=== PATIENT | female | born 1960 | race Caucasian/White ===

== ENCOUNTER 2019-07-11 12:26 | Emergency (ER) | payer OTHER, SELFPAY ==
[2019-07-11 12:36] VITALS: BP 139/90; PULSE 63; RESP 20; TEMP 37.2; O2SAT 98
--- NOTE | 2019-07-11 12:43 | ED.GENADULT ---
HPI - General Adult General Chief complaint: Upper Respiratory Infection Stated complaint: cough/sore throat Time Seen by Provider: 07/11/19 12:44 Source: patient and RN notes reviewed Mode of arrival: ambulatory Limitations: no limitations History of Present Illness HPI narrative: This is a 59 years old female presented to the office for evaluation of cough for 3-day. Associated with wheezing at time with chest tightness when she coughs. Symptoms began with stuffy nose and scratchy throat. Denies shortness of breath, abdominal pain, vomiting, or fever. She was a heavy smoker, quit about 4 years ago. Her daughter is sick with head cold. She did receive influenza vaccine for this season. Related Data Home Medications Medication Instructions Recorded Confirmed atorvastatin 10 mg PO DAILY 07/11/19 07/11/19 valsartan 40 mg PO DAILY 07/11/19 07/11/19 Allergies Allergy/AdvReac Type Severity Reaction Status Date / Time codeine Allergy Intermediate N/V Verified 07/11/19 12:29 diclofenac Allergy Intermediate RED RASH Verified 07/11/19 12:29 Review of Systems Review of Systems: Narrative: CONSTITUTIONAL: Denies fever, chills, sweats. ENT: Denies rhinorrhea, otalgia. CARDIOVASCULAR: Denies chest pain RESPIRATORY:Reports dyspnea, wheezing, cough GASTROINTESTINAL: Denies abdominal pain, nausea, vomiting, diarrhea. GENITOURINARY: Denies urinary symptoms or discharge SKIN: Denies rash MUSCULOSKELETAL: Denies acute back pain NEUROLOGIC: Denies lightheaded PMFSH Past Medical History Medical History (Updated 07/11/19 @ 12:53 by MARY ELLEN Etienne) HLD (hyperlipidemia) HTN (hypertension) Social History Social History (Updated 07/11/19 @ 12:51 by MARY ELLEN Etienne) Smoking status: Former smoker Comments At time of signature, I agree with nursing past medical, surgical, social and family history. There is no relevant family history pertinent to the presenting complaint. Exam Narrative: Exam Narrative: GENERAL: This is a well-nourished, well-developed patient, in no apparent distress. EYES: Sclera clear/white. Vision is grossly intact. EARS: External ears normal, auditory canals clear and without drainage, TMs normal without perforation. Hearing grossly intact. NOSE: External nose normal with no obvious nasal discharge, nares without redness, no rhinorrhea. THROAT: Mucous membranes moist, posterior pharynx clear. NECK: Neck supple, non-tender without lymphadenopathy, masses or thyromegaly. CARDIOVASCULAR: Regular rate and rhythm without murmurs, gallops, or rubs. RESPIRATORY: Clear to auscultation with in lower lobes note diminish breathsound. Breath sounds equal bilaterally. No wheezes, rales, or rhonchi. GASTROINTESTINAL: Abdomen soft, non-tender, nondistended. Bowel sounds are active. No hepato-splenomegaly, or palpable masses. No guarding. SKIN: warm, intact with no suspicious lesions or rash, good texture and turgor. NEURO: awake, alert, and oriented to person, place and time. There were no obvious focal neurologic abnormalities. Steady gait Drummond Coma Scale Eye Opening: Spontaneous 4 Jenna Coma Scale Motor: Obeys Commands 6 Jenna Coma Scale Verbal: Oriented 5 Course Vital Signs Vital signs: Vital Signs Temperature 98.9 F 07/11/19 12:36 Pulse Rate 63 07/11/19 12:36 Respiratory Rate 07/11/19 12:36 Blood Pressure 139/90 07/11/19 12:36 Pulse Oximetry 98 07/11/19 12:36 Temperature 98.9 F 07/11/19 12:36 Pulse Rate 63 07/11/19 12:36 Respiratory Rate 20 07/11/19 12:36 Blood Pressure 139/90 07/11/19 12:36 Pulse Oximetry 98 07/11/19 12:36 Medical Decision Making MDM Narrative Medical decision making narrative: elevated BP noted; recommend follow up with PCP in 2week; Discharge instructions reviewed with patient, as well as provided in writing per nursing staff. The instructions also include specific and strict return/GO TO THE ER as well as f/u information
== END 2019-07-11 12:54 | disposition home or self-care (01) ==
PROVIDERS: Emergency Provider Nurse Practitioner; PCP Family Medicine Sports Medicine
DX: J40 Bronchitis, not specified as acute or chronic (principal); E78.5 Hyperlipidemia, unspecified; I10 Essential (primary) hypertension; Z87.891 Personal history of nicotine dependence
CPT/HCPCS: 99213; G0463

== ENCOUNTER 2019-12-01 18:12 | Emergency (ER) | payer OTHER, SELFPAY ==
[2019-12-01 18:21] VITALS: BP 172/89; PULSE 72; RESP 20; TEMP 36.6; O2SAT 98
--- NOTE | 2019-12-01 18:45 | ED.GENADULT ---
HPI - General Adult General Chief complaint: Dizziness Stated complaint: left ear and dizzy Time Seen by Provider: 12/01/19 18:34 Source: patient and RN notes reviewed Limitations: no limitations History of Present Illness HPI narrative: Patient presents today with sudden onset dizziness that is significantly worsened when she tries to lay down or with movement of the head side to side. Denies nausea, vomiting, chest pain, shortness of breath, numbness or tingling in the extremities. She does report some left ear muffling for the past 2 to 3 days. States she had allergy testing today. Called her sec reporting consultant when symptoms began, and was told that the symptoms are not related to her injections today. She has tried no eayu-fom-kfhiywd medication for symptoms prior to arrival. She did have 2 beers this evening. MD complaint: Dizziness Related Data Home Medications Medication Instructions Recorded Confirmed atorvastatin 10 mg PO DAILY 07/11/19 12/01/19 valsartan 40 mg PO DAILY 07/11/19 12/01/19 budesonide-formoterol [Symbicort] 2 puff INHALATION Q12H 12/01/19 12/01/19 montelukast 10 mg PO HS 12/01/19 12/01/19 Allergies Allergy/AdvReac Type Severity Reaction Status Date / Time codeine Allergy Intermediate N/V Verified 12/01/19 18:35 diclofenac Allergy Intermediate RED RASH Verified 12/01/19 18:35 Review of Systems Review of Systems: Narrative: CONSTITUTIONAL: Denies body aches, fever, chills, or sweats. EYES: Denies visual changes, redness, or discharge. ENT: Denies rhinorrhea, congestion, sore throat, or otalgia.+ Left ear muffling CARDIOVASCULAR: Denies chest pain, palpitations, or edema. RESPIRATORY: Denies cough or dyspnea. GASTROINTESTINAL: Denies abdominal pain, nausea, vomiting, or diarrhea. GENITOURINARY: Denies dysuria or hematuria. SKIN: Denies rash, itching, or wounds. MUSCULOSKELETAL: Denies back pain, joint pain, or myalgia. NEUROLOGIC: Denies headache, numbness, tingling, or weakness.+ Dizziness PSYCH: Denies depression or anxiety. [facility] Past Medical History Medical History (Updated 12/01/19 @ 19:16 by Linda Peace, WINDOWS ADMINISTRATOR, ) HLD (hyperlipidemia) HTN (hypertension) Social History Social History (Updated 07/11/19 @ 12:51 by MARY ELLEN Etienne) Smoking status: Former smoker Comments At time of signature, I have reviewed and agree with nursing past medical, surgical, social and family history unless otherwise noted. Please see nursing chart for further information. There is no relevant family history pertinent to the presenting complaint Exam Narrative: Exam Narrative: GENERAL: Well-appearing, well-nourished, and in no acute distress. HEAD: Normocephalic, atraumatic. EYES: PERRL. +nystagmus. No redness or drainage. Conjunctivae normal. ENT: Mucous membranes pink and moist. Nares clear. No rhinorrhea. Small amount of fluid behind the left eardrum, otherwise normal. Right TM normal. Throat normal. Uvula midline. NECK: Normal AROM. Supple. No lymphadenopathy. CHEST: No respiratory distress. Clear to auscultation. HEART: Regular rate and rhythm. No murmur appreciated. Normal peripheral pulses. ABDOMEN: Soft, nontender, nondistended, normal active bowel sounds. MUSCULOSKELETAL: No bony tenderness. EXTREMITIES: Normal range of motion. No edema. SKIN: Warm, dry, no rash. Capillary refill normal. Normal skin turgor. NEURO: No focal deficits. Alert and oriented x3. Dizziness worsened with movement of head side to side and significanty worsened when she attempted to lay down on the exam table. PSYCH: Normal affect. No signs of depression or anxiety. Course Course Emergency Course: 1920- Patient states she is feeling slightly better, 30 mins after Meclizine. Given anticipatory guidance. Vital Signs Vital signs: Vital Signs Temperature 98 F 12/01/19 18:21 Pulse Rate 72 12/01/19 18:21 Respiratory Rate 20 12/01/19 18:21 Blood Pressure 172/89 H 12/01/19 18:21 Pulse Oximetry 9
[2019-12-01] MEDS: MECLIZINE HCL 25 MG TABLET 50 MG PO (18:50)
== END 2019-12-01 19:20 | disposition home or self-care (01) ==
PROVIDERS: Emergency Provider Nurse Practitioner; PCP Family Medicine Sports Medicine
DX: E78.5 Hyperlipidemia, unspecified (principal); I10 Essential (primary) hypertension; Z87.891 Personal history of nicotine dependence; R42 Dizziness and giddiness
CPT/HCPCS: 99213; A9270; G0463

== ENCOUNTER 2020-01-09 08:49 | Outpatient (CLI) | payer OTHER, SELFPAY | END 2020-01-09 08:50 | disposition home or self-care (01) | LOC: ANHAUDIO 08:50 | PROVIDERS: PCP Family Medicine Sports Medicine; Visit Provider Otolaryngology | DX: R42 Dizziness and giddiness (principal); H93.12 Tinnitus, left ear; H90.42 Sensorineural hearing loss, unilateral, left ear, with unrestricted hearing on the contralateral side | CPT/HCPCS: 92557; 92567 ==

== ENCOUNTER 2021-04-11 08:05 | Emergency (ER) | payer OTHER, SELFPAY ==
[2021-04-11 08:12] VITALS: BP 159/83; PULSE 64; RESP 20; TEMP 37.3; O2SAT 100
--- NOTE | 2021-04-11 08:13 | ED.URI ---
HPI - URI/Sore Throat General Chief Complaint: Upper Respiratory Infection Stated Complaint: Upper respiratory Time Seen by Provider: 04/11/21 08:13 Source: patient and RN notes reviewed Mode of arrival: ambulatory Limitations: no limitations History of Present Illness HPI Narrative: Glendy is a 60-year-old female patient [facility] with complaint of cough, congestion, and sore throat since 04/08/2021. Patient states she has a Covid test scheduled for 3 PM today. Patient has a history of allergies and is already taking Zyrtec, Flonase, Breo, and albuterol inhaler. Patient states she has been using Zicam, ozkj-zvd-bfzneia cough medicines, Motrin, and had a previous prescription for prednisone that she started yesterday. MD elicited complaint: cough Related Data Home Medications Medication Instructions Recorded Confirmed atorvastatin 10 mg PO DAILY 07/11/19 12/01/19 valsartan 40 mg PO DAILY 07/11/19 12/01/19 cetirizine [Zyrtec] 10 mg PO DAILY 12/01/19 12/01/19 montelukast 10 mg PO HS 12/01/19 12/01/19 cholecalciferol (vitamin D3) 25 25 mcg PO DAILY 12/21/19 mcg (1,000 unit) tablet fluticasone furoate 100 1 inhalation INHALATION DAILY 12/21/19 mcg-vilanterol 25 mcg/dose inhalation powder Allergies Allergy/AdvReac Type Severity Reaction Status Date / Time codeine Allergy Intermediate N/V Verified 04/11/21 08:24 diclofenac Allergy Intermediate RED RASH Verified 04/11/21 08:24 Review of Systems Review of Systems: CONSTITUTIONAL: Denies body aches, fever, chills, or sweats. EYES: Denies visual changes, redness, or discharge. ENT: Denies rhinorrhea,+ congestion,+ sore throat, denies otalgia. CARDIOVASCULAR: Denies chest pain, palpitations, or edema. RESPIRATORY:+ cough denies dyspnea. GASTROINTESTINAL: Denies abdominal pain, nausea, vomiting, or diarrhea. GENITOURINARY: Denies dysuria or hematuria. SKIN: Denies rash, itching, or wounds. MUSCULOSKELETAL: Denies back pain, joint pain, or myalgia. NEUROLOGIC: Denies headache, numbness, tingling, or weakness. PSYCH: Denies depression or anxiety. All systems reviewed & are unremarkable except as noted in HPI and below PMFSH Past Medical History Medical History HLD (hyperlipidemia) HTN (hypertension) Social History Social History Smoking status: Former smoker Second hand tobacco smoke exposure: No Alcohol intake: current Substance use: never Substance use type: does not use Comments At time of signature, I have reviewed and agree with nursing past medical, surgical, social and family history unless otherwise noted. Please see nursing chart for further information. There is no relevant family history pertinent to the presenting complaint Exam Narrative: GENERAL: Well-appearing, well-nourished, and in no acute distress. HEAD: Normocephalic, atraumatic. EYES: EOMI. No redness or drainage. Conjunctivae normal. ENT: Mucous membranes pink and moist. Nasal membranes erythemic with clear rhinorrhea. Bilateral tympanic membranes are dull with minimal fluid noted. No erythema noted. Posterior pharynx is mildly erythemic with minimal edema and no exudate noted. Uvula midline. NECK: Normal AROM. Supple. No lymphadenopathy. CHEST: No respiratory distress. Clear to auscultation. MUSCULOSKELETAL: No bony tenderness. EXTREMITIES: Normal range of motion. No edema. SKIN: Warm, dry, no rash. Capillary refill normal. Normal skin turgor. NEURO: No focal deficits. Alert and oriented x3. Gait steady. PSYCH: Normal affect. No signs of depression or anxiety. Course Course Emergency Course: Patient was evaluated and examined. I discussed with patient regarding upper respiratory illness most likely being viral in nature. Instructed her to follow-up with her primary care physician in 7 to 10 days for continued
== END 2021-04-11 08:30 | disposition home or self-care (01) ==
PROVIDERS: Emergency Provider Nurse Practitioner Family; PCP Family Medicine Sports Medicine
DX: J06.9 Acute upper respiratory infection, unspecified (principal); E78.5 Hyperlipidemia, unspecified; I10 Essential (primary) hypertension; Z87.891 Personal history of nicotine dependence
CPT/HCPCS: 99211; G0463

== ENCOUNTER 2021-09-27 07:36 | Emergency (ER) | payer OTHER, SELFPAY ==
[2021-09-27 07:43] VITALS: BP 150/82; PULSE 74; RESP 20; TEMP 36.8; O2SAT 100
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
[2021-09-27] MEDS: HYDROmorphone HCL INJ (*CRX) 1 MG/ML SYR IM (08:29)
[2021-09-27] MEDS: diazePAM (*CRX) 5 MG TABLET PO (08:29)
[2021-09-27] MEDS: ONDANSETRON HCL ODT 4 MG TABLET PO (08:29)
== END 2021-09-27 09:00 | disposition home or self-care (01) ==
PROVIDERS: Emergency Provider Emergency Medicine; PCP Family Medicine Sports Medicine
DX: S39.012A Strain of muscle, fascia and tendon of lower back, initial encounter (principal); E78.5 Hyperlipidemia, unspecified; I10 Essential (primary) hypertension; Z87.891 Personal history of nicotine dependence; X58.XXXA Exposure to other specified factors, initial encounter
CPT/HCPCS: 96372; 99283; A9270; J1170

== ENCOUNTER 2022-12-07 10:26 | Emergency (ER) | payer OTHER, SELFPAY ==
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
[2022-12-07 10:32] VITALS: BP 146/78; PULSE 61; RESP 16; TEMP 36.6; O2SAT 99
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
[2022-12-07] MEDS: HYDROcodone/acetaminophen (*CRX) 5-325 MG TABLET 1 TAB PO (12:29)
== END 2022-12-07 13:18 | disposition home or self-care (01) ==
PROVIDERS: Emergency Provider Physician Assistant; PCP Family Medicine Sports Medicine
DX: S52.592A Other fractures of lower end of left radius, initial encounter for closed fracture (principal); S52.615A Nondisplaced fracture of left ulna styloid process, initial encounter for closed fracture; E78.5 Hyperlipidemia, unspecified; I10 Essential (primary) hypertension; Z87.891 Personal history of nicotine dependence; W17.89XA Other fall from one level to another, initial encounter
CPT/HCPCS: 29125; 73110; 99284; A9270

== ENCOUNTER 2023-04-06 08:37 | Outpatient (CLI) | payer OTHER, SELFPAY ==
--- NOTE | 2023-04-06 11:00 | NEURO_ITS ---
Impression: # Complains of left upper extremity pain and numbness. # Mild evolving sensory Carpal Tunnel Syndrome. # Normal needle/EMG without any acute or chronic changes. Nerve Conduction Studies Anti Sensory Summary Table Stim Site NR Peak (ms) P-T Amp (?V) Site1 Site2 Delta-P (ms) Dist (cm) Shahzad (m/s) Left Median Anti Sensory (2-3nd Digit) Wrist 3.3 60.0 Wrist 2-3nd Digit 3.3 14.0 42 Wrist 3.3 64.3 Wrist 2-3nd Digit 3.3 14.0 42 Left Radial Anti Sensory (Base 1st Digit) Wrist 2.1 17.8 Wrist Base 1st Digit 2.1 0.0 Left Ulnar Anti Sensory (5th Digit) Wrist 2.1 55.7 Wrist 5th Digit 2.1 14.0 67 Motor Summary Table Stim Site NR Onset (ms) O-P Amp (mV) Site1 Site2 Delta-0 (ms) Dist (cm) Shahzad (m/s) Left Median Motor (Abd Poll Brev) Wrist 3.4 1.1 Elbow Wrist 4.5 28.0 62 Elbow 7.9 1.2 Left Ulnar Motor (Abd Dig Minimi) Wrist 2.1 4.2 A Elbow Wrist 4.6 27.0 59 A Elbow 6.7 3.5 F Wave Studies NR F-Lat (ms) L-R F-Lat (ms) Left Median (Mrkrs) (Abd Poll Brev) 26.80 Left Ulnar (Mrkrs) (Abd Dig Min) 25.19 EMG Side Muscle Nerve Root Ins Act Fibs Amp Dur Recrt Comment Left 1stDorInt Ulnar C8-T1 Nml Nml Nml Nml Nml Left Ext Indicis Radial (Post Int) C7-8 Nml Nml Nml Nml Nml Left Ext Digitorum Radial (Post Int) C7-8 Nml Nml Nml Nml Nml Left BrachioRad Radial C5-6 Nml Nml Nml Nml Nml Left PronatorTeres Median C6-7 Nml Nml Nml Nml Nml Left Abd Poll Brev Median C8-T1 Nml Nml Nml Nml Nml MTDD
== END 2023-04-06 08:38 | disposition home or self-care (01) ==
PROVIDERS: PCP Family Medicine Sports Medicine; Visit Provider Orthopaedic Surgery
DX: R20.0 Anesthesia of skin (principal); R20.2 Paresthesia of skin; G56.00 Carpal tunnel syndrome, unspecified upper limb
CPT/HCPCS: 95886; 95909

== ENCOUNTER 2023-04-10 08:03 | Emergency (ER) | payer OTHER, SELFPAY ==
--- NOTE | 2023-04-10 08:08 | ED.URI ---
HPI - URI/Sore Throat General Chief Complaint: Upper Respiratory Infection Stated Complaint: Cough Time Seen by Provider: 04/10/23 08:08 Source: patient Mode of arrival: ambulatory Limitations: no limitations History of Present Illness HPI Narrative: Glendy is a 62-year-old female patient presenting to the clinic today with complaints of cough and nasal congestion times 2-3 days. She reports she did taken at home COVID test and it was negative. Reports she is having surgery on her carpal tunnel on of next week and does not want to be sick. Denies any fever, chills, sore throat, body aches, or nausea/vomiting. MD elicited complaint: cough and nasal congestion Related Data Home Medications Medication Instructions Recorded Confirmed atorvastatin 10 mg tablet 10 mg PO DAILY 07/11/19 04/10/23 valsartan 40 mg tablet 40 mg PO DAILY 07/11/19 04/10/23 cetirizine 10 mg tablet (Zyrtec) 10 mg PO DAILY 12/01/19 04/10/23 montelukast 10 mg tablet 10 mg PO HS 12/01/19 04/10/23 fluticasone furoate 100 inhalation 04/10/23 mcg-vilanterol 25 mcg/dose inhalation powder (Breo Ellipta) Allergies Allergy/AdvReac Type Severity Reaction Status Date / Time codeine Allergy Intermediate N/V Verified 04/10/23 08:13 diclofenac Allergy Intermediate RED RASH Verified 04/10/23 08:13 Review of Systems Review of Systems: Pertinent positives per HPI. Patient denies any fever, chills, rash, headache, visual changes, dizziness, shortness of breath, chest pain, palpitations, nausea, vomiting, diarrhea, constipation, abdominal pain, or any urinary issues. [facility] Past Medical History Medical History Carpal tunnel syndrome of left wrist HLD (hyperlipidemia) HTN (hypertension) Social History Social History Smoking packs per day: 1 Smoking cigarettes per day: 20.0 Years smoked: 25 Smoking pack-years: 25.00 Smoking status: Former smoker Tobacco type: cigarettes Second hand tobacco smoke exposure: No Smoking end date: 05/11/15 Alcohol intake: current Drinks per week: 4 Substance use: never Substance use type: does not use Living arrangements: with family Spiritual care concerns: No Comments At the time of my signature, I reviewed and agree with the nursing past medical, surgical, social, and family history. There is no relevant family history pertinent to the patient complaint. Exam Narrative: General: Well-developed, well nourished, in no apparent distress Head: Normocephalic, atraumatic Eyes: Pupils equally round and reactive to light bilaterally, EOM intact, sclera and conjunctive clear, no discharge, lids normal Ears: TMs intact and clear, ear canals clear, no drainage, grossly hearing normal. Nose: Nares patent, clear nasal discharge, moderate inflammation, no sinus tenderness. Mouth: Oral pharynx without lesions or masses, good dentition, MMM. Neck: Supple, trachea midline, no enlargement of anterior or posterior cervical nodes, no thyroid masses or goiter palpable. Cardio: Regular rate and rhythm, s1 and s2 normal, no murmur appreciated. Resp: Clear to auscultation bilaterally, no rhonchi, rales, wheezing or rubs Course Course Emergency Course: Portions of this record may have been created with voice recognition software. Level of Care: Express Care Visit Vital Signs Vital signs: Vital signs reviewed MDM - URI/Sore Throat MDM Narrative Medical decision making narrative: At the time of visit patient is resting comfortably on the exam table. I suspect patient has URI. Prescription for prednisone was sent to pharmacy and supportive measures were discussed with the patient she voiced understanding of the discharge instructions and agrees to treatment plan. Return precautions were reviewed Differential Diagnosis Differential diagnosis: Likely upper respiratory in
[2023-04-10 08:09] VITALS: BP 145/87; PULSE 66; RESP 16; TEMP 36.9; O2SAT 98
== END 2023-04-10 08:20 | disposition home or self-care (01) ==
PROVIDERS: Emergency Provider Nurse Practitioner Family; PCP Family Medicine Sports Medicine
DX: J06.9 Acute upper respiratory infection, unspecified (principal); Z87.891 Personal history of nicotine dependence; I10 Essential (primary) hypertension; E78.5 Hyperlipidemia, unspecified
CPT/HCPCS: 99213; G0463

== ENCOUNTER 2023-04-14 15:21 | Outpatient (CLI) | payer OTHER, SELFPAY ==
--- NOTE | 2023-04-14 15:30 | ECG_ITS ---
Measurements Intervals [place] Rate: 58 P: 55 NM: 137 QRS: 17 QRSD: 94 T: 49 QT: 375 QTc: 370 Interpretive Statements SINUS BRADYCARDIA NONSPECIFIC T-WAVE ABNORMALITY NO PREVIOUS ECG AVAILABLE FOR COMPARISON Electronically Signed On 04-14-2023 20:18:53 [facility] by Deepa Sesay M.D.
== END 2023-04-14 15:22 | disposition home or self-care (01) ==
LOC: ANHSURGERY 15:25
PROVIDERS: PCP Family Medicine; Visit Provider Orthopaedic Surgery
DX: Z01.818 Encounter for other preprocedural examination (principal); I10 Essential (primary) hypertension; R00.1 Bradycardia, unspecified
CPT/HCPCS: 93005

== ENCOUNTER 2023-04-16 03:59 | Day surgery (SDC) | payer OTHER, SELFPAY ==
[2023-04-09 12:45] VITALS: BMI 31.0
--- NOTE | 2023-04-09 12:52 | PC.NURSE ---
Report to the Outpatient Waiting Room, entrance under the green pavilion located off [facility], at time 12:00 on date 04/16/23. Planned Procedure Time: 2:00. Time changes happen often and if your time is changed the preop area will call you the afternoon before. - You and your visitor will be asked to self-screen and do not enter if you have any COVID symptoms. - A mask is optional within the hospital at this time. Patients may have clear liquids (water, carbonated beverages, clear teas, apple juice) until 3 hours prior to surgery (11:00) with a maximum of 20 ounces. - No food from midnight until time of surgery Take the following medications with a SIP of water the morning of surgery: NONE DO NOT STOP ANY OF YOUR OTHER PRESCRIPTION MEDICATIONS PRIOR TO SURGERY ?EXCEPT THE FOLLOWING Medications to discontinue per physician: VITAMINS/SUPPLEMENTS Date to take last dose: 04/12/23 Please no make-up, nail english, hairspray, perfume, deodorant, or body powder the day of surgery. No jewelry (including any body piercings) or valuables the day of surgery, leave them at home. Please take a shower or bath the night before, or the morning of, surgery with an antibacterial soap. Wear comfortable, loose fitting clothing. - Jewelry must be removed prior to entering the operating room. Rings and piercings that are not removed may be cut off. - The hospital will not accept responsibility for valuables. - Please leave all valuables, including medications, at home the day of surgery. If you are going home after surgery, a licensed tour driver must drive you home. - NO public transportation without another adult if you receive anesthesia. - We recommend that an adult stay with you for 24 hours following discharge. - We also recommend that you do not drive, make important decision, drink alcoholic beverages, or take any drugs that were not prescribed by your health care provider for at least 24 hours after your discharge time. Follow any additional instructions given to you from your surgeon. If you or anyone in your household have experienced Covid symptoms in the past week, please notify your surgeon or the nurse liaison at the phone number below for possible testing. Telephone instructions given to PT - RHONDA MARION and asked if any additional questions and then verbalized understanding. Patient advised to call surgeon office or pre surgery nurse liaison [phone] if any additional questions.
--- NOTE | 2023-04-15 13:02 | PM.IMHP ---
H&P: HPI History of Present Illness Date/Time: 04/15/23 13:02 Chief Complaint: Left wrist pain, numbness and tingling Narrative: 4 months left distal radius fracture. Complicated by pain, numbness and tingling. Nerve conduction study shows carpal tunnel. Patient failed treatment with injection and bracing. Presents for operative treatment. Review of Systems Constitutional: Constitutional: Denies fever(s) Eyes: Eyes: Denies blurry vision ENT: Reports Normal hearing present Cardiovascular: Cardiovascular: Denies chest pain and Denies dyspnea Respiratory: Respiratory: Denies dyspnea and Denies wheezing Gastrointestinal: Gastrointestinal: Denies abdominal pain Genitourinary: Genitourinary: Denies urinary urgency Musculoskeletal: Musculoskeletal: Reports as per HPI and Denies numbness Integumentary/Breasts: Skin/Breast: Denies changing lesions and Denies sores Neurologic: Reports Normal hearing present, Denies behavioral changes, Denies confusion, Denies numbness and Denies convulsions Psychiatric: Psychiatric: Denies behavioral changes, Denies confusion and Denies hallucinations Endocrine: Endocrine: Denies heat intolerance Hematologic/Lymphatic: Hematologic/Lymphatic: Denies easy bleeding Allergic/Immunologic: Allergic/Immunologic: Denies wheezing [facility] Past Medical History Medical History Carpal tunnel syndrome of left wrist HLD (hyperlipidemia) HTN (hypertension) Social History Social History Smoking packs per day: 1 Smoking cigarettes per day: 20.0 Years smoked: 25 Smoking pack-years: 25.00 Smoking status: Former smoker Tobacco type: cigarettes Second hand tobacco smoke exposure: No Smoking end date: 05/11/15 Alcohol intake: current Drinks per week: 4 Substance use: never Substance use type: does not use Living arrangements: with family Spiritual care concerns: No Meds Home Medications and Allergies Home Medications Medication Instructions Recorded Confirmed Type atorvastatin 10 mg tablet 10 mg PO DAILY 07/11/19 04/10/23 History valsartan 40 mg tablet 40 mg PO DAILY 07/11/19 04/10/23 History cetirizine 10 mg tablet (Zyrtec) 10 mg PO DAILY 12/01/19 04/10/23 History montelukast 10 mg tablet 10 mg PO HS 12/01/19 04/10/23 History fluticasone furoate 100 inhalation 04/10/23 History mcg-vilanterol 25 mcg/dose inhalation powder (Breo Ellipta) prednisone 20 mg tablet 40 mg PO DAILY 5 days #10 tabs 04/10/23 Rx Allergies Allergy/AdvReac Type Severity Reaction Status Date / Time codeine Allergy Intermediate N/V Verified 04/10/23 08:13 diclofenac Allergy Intermediate RED RASH Verified 04/10/23 08:13 Exam Const: General: cooperative, healthy appearing, no acute distress, well developed and alert; No confusion Orientation/consciousness: No confusion HENMT: Head: normal to inspection, normocephalic and atraumatic Eyes: Conjunctivae: conjunctivae normal Sclera: sclerae normal Neck: Neck: supple and nontender Chest: Chest palpation & inspection: normal inspection of the chest Resp: Effort & Inspection: normal respiratory effort and no audible wheezes Cardio: Rate: regular rate Rhythm: regular rhythm : General: Yes deferred Skin: General skin exam: no rashes or lesions noted Neuro: General: No confusion Motor exam (neuro): Normal motor muscle tone present throughout Sensory Exam: Sensory deficit (Neuro) (decreased sensation to light touch thumb, index, middle and radial ring amanda) and Upper extremity sensory exam abnormal Deep tendon reflexes (DTR's): Right triceps reflex intensity grade: 2+, Left triceps reflex intensity grade: 2+, Rt Biceps (C5, C6): 2+, Left biceps reflex intensity grade: 2+, Right brachioradialis reflex intensity grade: 2+ and Left brachioradialis reflex intensity grade: 2+ Extrem: General: capilla
--- NOTE | 2023-04-16 11:46 | WPDHPUPDATE1 ---
History and Physical Update Update Date/Time: 04/16/23 11:46 History and Physical has been reviewed, including an updated exam of the patient. There are NO changes in the patient's condition. Risks, benefits, and alternatives have been discussed and questions answered. Patient agrees to proceed with procedure.
[2023-04-16 12:35] VITALS: BP 162/82; PULSE 65; RESP 14; TEMP 36.5; O2SAT 100
[2023-04-16] MEDS: ACETAMINOPHEN 500 MG TABLET 1000 MG PO (12:35)
[2023-04-16] MEDS: LACTATED RINGERS 1,000 ML 30 ML IV CONT (12:35)
--- NOTE | 2023-04-16 12:44 | P.PNAN_ITS ---
Anes - Initial Pre Proc Eval Procedure: Operation Date: 04/16/23 14:00 Proposed Procedures p Left Carpal Tunnel Release - Steve Valdes MD Date/Time: 04/16/23 12:44 Surgeon: Steve Valdes MD Pre Op Diagnosis: left carpal tunnel syndrome Patient Data Age: 62 Gender: F Height: 1.6 m Weight: 79.4 kg Allergies Allergy/AdvReac Type Severity Reaction Status Date / Time codeine Allergy Intermediate N/V Verified 04/10/23 08:13 diclofenac Allergy Intermediate RED RASH Verified 04/10/23 08:13 Home Medications Medication Instructions Recorded Confirmed Type atorvastatin 10 mg tablet 10 mg PO DAILY 07/11/19 04/10/23 History valsartan 40 mg tablet 40 mg PO DAILY 07/11/19 04/10/23 History cetirizine 10 mg tablet (Zyrtec) 10 mg PO DAILY 12/01/19 04/10/23 History montelukast 10 mg tablet 10 mg PO HS 12/01/19 04/10/23 History fluticasone furoate 100 inhalation 04/10/23 History mcg-vilanterol 25 mcg/dose inhalation powder (Breo Ellipta) prednisone 20 mg tablet 40 mg PO DAILY 5 days #10 tabs 04/10/23 Rx Patient hx anesthesia problems: none Family hx anesthesia problems: none Results Review: All pre-operative results and documents have been reviewed as part of the pre- operative evaluation. [facility] Past Medical History Medical History Carpal tunnel syndrome of left wrist HLD (hyperlipidemia) HTN (hypertension) Social History Social History Smoking packs per day: 1 Smoking cigarettes per day: 20.0 Years smoked: 25 Smoking pack-years: 25.00 Smoking status: Former smoker Tobacco type: cigarettes Second hand tobacco smoke exposure: No Smoking end date: 05/11/15 Alcohol intake: current Drinks per week: 4 Substance use: never Substance use type: does not use Living arrangements: with family Spiritual care concerns: No Anes - Eval Final PreProcedure Day of Procedure 04/16/23 12:44 Patient weight: obese Heart: regular rate and rhythm Lungs: clear to auscultation Airway: Mallampati scale class II Neurological: alert and oriented Last oral intake: >/= 8 hours ASA classification: III Emergent: no Anesthetic plan: proceed Anesthesia type and monitoring: general GIVS (may use LMA) and standard monitoring Results Review: All pre-operative results and documents have been reviewed as part of the pre-operative evaluation. Informed Consent: The patient's anesthetic plan and its attendant risks and benefits were discussed with the patient/family/POA. Questions were solicited and answers provided to the satisfaction of the patient/family/POA.
[2023-04-16] MEDS: ceFAZolin 2 GM/D5W 50 ML 2 GM/50 ML BAG IVPB (13:04)
--- NOTE | 2023-04-16 13:11 | P.OP_ITS ---
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 Injury and post injury recovery complicated by pain in the hand and numbness tingling in the thumb and fingers. Nerve study demonstrates carpal tunnel compression of the medial nerve. Presents now for operative treatment. Description of Procedure After informed consent was given, the operative extremity was marked in the preoperative holding area. Intravenous antibiotics were given. The patient was taken to the operating room and underwent conscious sedation by the anesthesia team. A time-out was performed confirming patient, procedure, and operative site. Local infiltrate at the carpal tunnel was done with 0.5% marcaine. Prepping and draping was done using chloraprep skin solution with usual surgical sterile technique. Anatomic landmarks marked on skin. Hand was exsanguinated and arm tourniquet inflated to 250mmHg. Incision was made with #15 blade knife in skin crease on volar palm. Hemostasis was achieved with electrocautery. Careful dissection was carried down to the transverse carpal ligament. Retractors were placed. Ligament overlying median nerve was incised in line with skin incision using tangirnaq blade. Proximal and distal release was done with metzenbaum scissors under direct visualization. Mosquito clamp was placed deep to ligament to protect nerve during release. The nerve was inspected and noted to be intact with mild flattening. Tendons had good excursion. The tourniquet was then released and pressure held. Bleeding points were coagulated with bipolar cautery. The wound was thoroughly irrigated with antibiotic solution. The skin was closed with 4-0 nylon interrupted suture. A sterile dressing was applied. Good capillary refill in the fingers and thumb was noted. The patient was transported to the recovery room in stable condition. All sponge, needle, instrument counts were correct at the end of the case. Estimated Blood Loss 5 Tourniquet Time 7 Drains No Packing No Pathology None sent Complications None Condition Stable Disposition PACU [facility] Billing Surgery - Charge Forward: Surgery Billing ([id number])
[2023-04-16] MEDS: LIDOCAINE HCL 2% LOCAL INJ 20 ML VIAL 10 ML INFILTRATE (13:20)
[2023-04-16 13:39] VITALS: BP 105/54; PULSE 94; RESP 16; O2SAT 94
[2023-04-16 14:05] VITALS: BP 104/63; PULSE 60; RESP 16; O2SAT 94
[2023-04-16 14:35] VITALS: BP 127/76; PULSE 63; RESP 16
== END 2023-04-16 14:50 | disposition home or self-care (01) ==
PROVIDERS: PCP Family Medicine; Visit Provider Orthopaedic Surgery
PROC: (CPT 64721; principal; 2023-04-16 14:00)
DX: G56.02 Carpal tunnel syndrome, left upper limb (principal); I10 Essential (primary) hypertension; E78.5 Hyperlipidemia, unspecified; Z79.51 Long term (current) use of inhaled steroids; Z87.891 Personal history of nicotine dependence; E66.9 Obesity, unspecified; Z68.32 Body mass index [BMI] 32.0-32.9, adult
CPT/HCPCS: 64721; 93005; A9270; J0690; J2250; J2405; J2704; J3010; J7120

== ENCOUNTER 2024-07-04 10:02 | Emergency (ER) | payer OTHER, SELFPAY ==
[2024-07-04 10:10] VITALS: BP 124/72; PULSE 67; RESP 20; TEMP 36.8; O2SAT 98
--- NOTE | 2024-07-04 10:29 | ED.URI ---
HPI - URI/Sore Throat General Chief Complaint: Upper Respiratory Infection Stated Complaint: cough Time Seen by Provider: 07/04/24 10:30 Source: patient and RN notes reviewed Mode of arrival: ambulatory Limitations: no limitations History of Present Illness HPI Narrative: 64-year-old female presents with concern for cough and sore throat. Reports sore throat started on Thursday night, dry cough is now moved into her chest. She denies fever. Reports body aches. She is taking Michaelle cold medicine MD elicited complaint: cough and sore throat Related Data Home Medications ?Medication ?Instructions ?Recorded ?Confirmed ?Last Taken ?Type atorvastatin 10 mg tablet 10 mg PO DAILY 07/11/19 07/21/23 Unknown History valsartan 40 mg tablet 40 mg PO DAILY 07/11/19 07/21/23 Unknown History cetirizine 10 mg tablet (Zyrtec) 10 mg PO DAILY 12/01/19 07/21/23 Unknown History montelukast 10 mg tablet 10 mg PO HS 12/01/19 07/21/23 Unknown History fluticasone furoate 100 inhalation 04/10/23 07/21/23 Unknown History mcg-vilanterol 25 mcg/dose inhalation powder (Breo Ellipta) atorvastatin 20 mg tablet mg 07/04/24 Unknown History atorvastatin 40 mg tablet mg 07/04/24 Unknown History metoprolol succinate 25 mg mg PO 07/04/24 Unknown History tablet,extended release 24 hr valsartan 80 mg tablet mg 07/04/24 Unknown History Allergies Allergy/AdvReac Type Severity Reaction Status Date / Time codeine Allergy Intermediate N/V Verified 07/04/24 10:17 diclofenac Allergy Intermediate RED RASH Verified 07/04/24 10:17 Review of Systems Review of Systems: CONSTITUTIONAL: Denies malaise, chills, sweats, or fever. EYES: Denies visual changes, redness, or discharge. ENT: Denies rhinorrhea, congestion, sinus pain, otalgia. Reports sore throat. CARDIOVASCULAR: Denies chest pain, palpitations, or edema. RESPIRATORY: Reports cough and chest congestion. Denies dyspnea. GASTROINTESTINAL: Denies abdominal pain, nausea, vomiting, diarrhea SKIN: Denies rash or itching. MUSCULOSKELETAL: Reports myalgia. NEUROLOGIC: Denies headache. All systems reviewed & are unremarkable except as noted in HPI and below PMFSH Past Medical History Medical History Carpal tunnel syndrome of left wrist HLD (hyperlipidemia) HTN (hypertension) Social History Social History Smoking packs per day: 1 Smoking cigarettes per day: 20.0 Years smoked: 25 Smoking pack-years: 25.00 Smoking status: Former smoker Tobacco type: cigarettes Second hand tobacco smoke exposure: No Smoking end date: 05/11/15 Alcohol intake: current Drinks per week: 4 Substance use: never Substance use type: does not use Living arrangements: with family Spiritual care concerns: No Comments At time of signature, agree with nursing past medical, surgical, social and family history. There is no relevant family history pertinent to the presenting complaint Exam Narrative: GENERAL: Nontoxic-appearing, well-nourished, and in no acute distress. HEAD: Normocephalic EYES: PERRLA, conjunctivae clear ENT: Nares clear Mucous membranes moist. TM pearly noonan with sharp light reflex bilaterally; no tragal tenderness. Oropharynx erythematous without lesions. Tonsils not enlarged and without exudate, no drooling, no hoarseness, no trismus, uvula midline. NECK: Supple. No lymphadenopathy CHEST: Clear to auscultation, breath sounds equal. No wheezing, rhonchi, rales, or stridor. No respiratory distress, speaks in full sentences. Cough noted HEART: Regular rate and rhythm. No murmur heard. SKIN: Warm, dry, no rash. NEURO: Alert and oriented x3. PSYCH: Normal mood and affect Course Course Emergency Course: Patient is aware of diagnosis, understands and agrees to treatment plan. Anticipatory guidance given. Patient agrees to follow-up as directed and is aware of reasons to seek care at the emergency department. Portions of this record may have been created with voice recognition software Level of Care: Express Care Visit Vital Signs Vital signs: Vital Signs Temperature 98.2 F 07/04/24 10:10 Pulse Rate 67 07/04/24 10:10 Respiratory Rate 20 07/04/24 10:10 Blood Pressure 124/72 07/04/24 10:10 Pulse Oximetry 98 07/04/24 10:10 Oxygen Delivery Room Air 07/04/24 10:10 Temperature 98.2 F 07/04/24 10:10 Pulse Rate 67 07/04/24 10:10 Respiratory Rate 20 07/04/24 10:10 Blood Pressure 124/72 07/04/24 10:10 Pulse Oximetry 98 07/04/24 10:10 Oxygen Delivery Room Air 07/04/24 10:10 Reviewed. MDM - URI/Sore Throat MDM Narrative Medical decision making narrative: Differential diagnosis considered: Guthrie virus, strep pharyngitis, allergic rhinitis, upper respiratory tract infection, sinusitis, rhinosinusitis, nasopharyngitis. viral pharyngitis, otitis media, otitis externa, pneumonia, bronchitis, viral cough syndrome, viral syndrome, and influenza. Exam findings show no acute concerns or changes; patient is non-toxic appearing and is in no distress. Patient is appropriate for outpatient treatment and follow-up. Lab Data Attestation: I reviewed the patient's lab results. Critical Care Time Critical Care Time Critical Care Time: No Discharge Plan Discharge Clinical Impression: Upper respiratory infection Patient Disposition: Home, Self-Care Condition: Stable Instructions: Upper Respiratory Infection (ED) Additional Instructions: Your rapid strep swab was negative today at [facility]. A throat culture will be sent to the laboratory for further testing. If the test is positive, you will receive a phone call within 48 hours and an appropriate antibiotic will be initiated at that time. Viral illness may last between 7-21 days; antibiotics do not cure viral illness and are NOT recommended at this time. Recommend antihistamine such as Benadryl at night time and Zyrtec or Rosio during the day Use inhaler as needed for cough, wheezing, shortness of breath or chest tightness. Also, recommend symptomatic treatment includes: rest, fluids, and increase humidity of the air at home. Recommend Acetaminophen as directed on the bottle to reduce fever, pain, headache. Avoid smoking/second-hand smoke. Please schedule a follow-up visit with your personal physician for further evaluation and treatment within 3-5days. If your symptoms persist, change or worsen significantly before you can contact your personal physician then please, without delay, go to the emergency department for further evaluation. Patient Language: Turkish Prescriptions: No Action montelukast 10 mg Tablet 10 mg PO HS cetirizine [Zyrtec] 10 mg Tablet 10 mg PO DAILY fluticasone furoate-vilanterol [Breo Ellipta] 100-25 mcg/dose blister with device INHALATION prednisone 20 mg tablet 40 mg PO DAILY 5 Days Qty: 10 0RF atorvastatin 40 mg tablet atorvastatin 20 mg tablet valsartan 80 mg tablet metoprolol succinate 25 mg tablet extended release 24 hr PO atorvastatin 10 mg tablet 10 mg PO DAILY valsartan 40 mg tablet 40 mg PO DAILY polyethylene glycol 3350 17 gram powder in packet 17 g PO DAILY PRN (Reason: constipation) Qty: 14 1RF ondansetron 8 mg tablet,disintegrating 8 mg PO Q8H PRN (Reason: nausea and vomiting) Qty: 10 1RF hydrocodone-acetaminophen 5-325 mg tablet 1 tablet PO Q6H PRN (Reason: pain) Qty: 20 0RF Follow-up/Referrals: Sherin,Josef Martin MD [Primary Care Provider] - Stand Alone Forms: Work/School Release IP Time of Disposition: 10:44
[2024-07-04 10:45] LABS: EDSTREPNEGPOS1 Negative (Negative)
--- OUTSIDE RECORDS SUMMARY | 2024-07-04 11:12 | XMS_ITS | Referral Summary ---
Author Organization [facility] Address [address] [place] [address] Care Team Providers Care Rn Endoscopy Name Role Phone Omid Beatty MD Primary Care Provider Encounters Date Type Department Care Team Description 04/14/2024 3:03 PM CONSULTING MARINE ENGINEER - 04/14/2024 11:59 PM CONSULTING MARINE ENGINEER Hospital Encounter [facility] [address] [place] [address] Encounter for screening for lung cancer Discharge Disposition: Discharge to home or self care from Last 3 Months Allergies Active Allergy Reactions Criticality Noted Date Comments Codeine Nausea only Reaction: Nausea, Diclofenac Hives Medium 07/23/2020 Medications Breo Ellipta 100-25 mcg/dose diskus inhaler INHALE 1 PUFF BY MOUTH ONCE DAILY 1 Active atorvastatin (LIPITOR) 10 mg tablet Take 10 mg by mouth daily 1 Active montelukast (SINGULAIR) 10 mg tablet Take 10 mg by mouth daily 1 Active valsartan (DIOVAN) 40 mg tablet Take 40 mg by mouth daily 1 Active triamcinolone (NASACORT) 55 mcg nasal inhaler Administer 2 sprays into each nostril daily Active cetirizine (ZyrTEC) 10 mg tablet Take 10 mg by mouth daily Active magnesium chloride 71.5 mg tablet,delayed release (DR/EC) Take by mouth Active calcium citrate-vitamin D3 200 mg-3.125 mcg (125 unit) tablet Take by mouth Active vitamin B complex capsule Take 1 capsule by mouth daily Active calcium acetate,phospha t bind, (PHOSLO) 667 mg capsule Take 1,334 mg by mouth 3 (three) times a day with meals Active phenytoin ER (DILANTIN) 100 mg ER capsuleIndicati ons:Tinnitus of both ears Take 1 capsule (100 mg total) by mouth 3 (three) times a day 90 capsule 1 1 Active meclizine (ANTIVERT) 12.5 mg tablet Take 1 tablet (12.5 mg total) by mouth 3 (three) times a day as needed for dizziness 30 tablet 2 Active Active Problems Problem Noted Date Diagnosed Date Tinnitus of both ears 07/23/2020 Ovarian neoplasm 03/21/2015 Pelvic mass 09/26/2013 Vaginal vault smear abnormal 09/26/2013 Arthritis 03/28/2013 Atypical squamous cells of u ndetermined significance on cytologic smear of vagina (ASC-US) 03/28/2013 Benign colonic polyp 07/13/2012 Papanicolaou smear of cervix with atypical squamous cells cannot exclude high grade squamous intraepithelial lesion (ASC-H) 05/03/2012 Hypertension 07/28/2011 Hypercholesterolemia 03/17/2011 Hydronephrosis 10/24/2009 Anxiety 10/24/2009 Social History Tobacco Use Types Packs/Day Years Used Date Smoking Tobacco: Former Tobacco Cessation:Counseling Given: Not Answered Alcohol Use Standard Drinks/Week Comments Yes 1 (1 standard drink = 0.6 oz pur e alcohol) Comments Unknown Sex and Gender Information Value Date Recorded Sex Assigned at Not on file Legal Sex Female 12:05 PM CONSULTING MARINE ENGINEER Gender Identity Not on file Sexual Orientation Not on file Last Filed Vital Signs Vital Sign Reading Time Taken Comments Blood Pressure 150/85 01/19/2022 8:54 PM CDT Pulse 68 01/19/2022 8:54 PM CDT Temperature 36.7 C (98 F) 01/19/2022 8:54 PM CDT Respiratory Rate 18 01/19/2022 8:54 PM CDT Oxygen Saturation 98% 01/19/2022 8:54 PM CDT Inhaled Oxygen Concentration - - Weight 80.7 kg (178 lb) 01/19/2022 6:19 PM CDT Height 160 cm (5' 3 ) 01/19/2022 6:19 PM CDT Body Mass Index 31.53 01/19/2022 6:19 PM CDT Plan of Treatment Not on file Procedures Procedure Name Priority Date/Time Associated Diagnosis Comments CT LUNG CANCER SCREENING Schedule Routine, Read Routine (OP Routine) 04/14/2024 3:47 PM CONSULTING MARINE ENGINEER Encounter for screening for lung cancer COLONOSCOPY REPORT 08/18/2012 from Last 3 Months or Most Recently Relevant to Health Maintenance Results * CT Lung Cancer Screening (04/14/2024 3:47 PM CONSULTING MARINE ENGINEER) Anatomical Region Laterality Modality Chest N/A Computed Tomogra phy 04/20/2024 7:06 AM CONSULTING MARINE ENGINEER Narrative 04/20/2024 7:11 AM CONSULTING MARINE ENGINEER EXAM DESCRIPTION: CT LUNG CANCER SCREENING REASON FOR STUDY: Screening CT of the chest in a former smoker with a 30 pack year smoking history. Additional history: None. TECHNIQUE: Low dose CT scan of the chest was performed without intravenous contrast using helical scanning technique. The exam extends from the lung apices through the lung bases. Automatic exposure control was used as a dose optimization technique. NOTE: This study was performed for the specific purposes of lung cancer screening and is not an alternative to diagnostic chest CT. RADIATION DOSE: CT dose index volume (CTDIvol) = 1.94 mGy COMPARISON: None FINDINGS: SMOKING RELATED LUNG DISEASE: Minimal emphysema. LUNG NODULES: There are a few scattered tiny nodules bilaterally. For instance a 2 mm nodule in the periphery of the right upper lobe on image number 55. 7 mm nodule medial left lower lobe image 185, with adjacent 4 mm nodules. CORONARY ARTERY CALCIFICATION: Present OTHER: There is no localized consolidation. Minimal subsegmental scarring/atelectasis. No effusion or pneumothorax. The central airways are patent. The thyroid gland is grossly unremarkable. There is no mediastinal or hilar adenopathy. Postinflammatory calcifications are present. The heart is normal in size without pericardial effusion. The thoracic aorta is normal in caliber. No axillary lymphadenopathy. The chest wall is unremarkable. Visualized upper abdomen reveals no significant incidental findings. There is cervical and thoracic spondylosis with degenerative disc disease. IMPRESSION: 7 mm nodule in the medial left lower lobe. Additional tiny nodules bilaterally. Minimal emphysema. Coronary artery calcifications. Additional findings as above. Lung-RADS category 3: Probably benign. Recommendation: Low dose CT of chest in 6 months. THIS IS AN ELECTRONICALLY VERIFIED FINAL REPORT 04/20/2024 7:11 AM - Electronically signed by Carin Benson M.D. TW: JESSICA Report ID: [id number] Reading Location: [place] [address] Procedure Note Carin Benson MD - 04/20/2024 EXAM DESCRIPTION: CT LUNG CANCER SCREENING REASON FOR STUDY: Screening CT of the chest in a former smoker with a30 pack year smoking history. Additional history: None. TECHNIQUE: Low dose CT scan of the chest was performed without intravenous contrast using helical scanning technique. The exam extends from the lung apices through the lung bases. Automatic exposure control was used as adose optimization technique. NOTE: This study was performed for the specific purposes of lung cancer screening and is not an alternative to diagnostic chest CT. RADIATION DOSE: CT dose index volume (CTDIvol) = 1.94 mGy COMPARISON: None FINDINGS: SMOKING RELATED LUNG DISEASE: Minimal emphysema. LUNG NODULES: There are a few scattered tiny nodules bilaterally. For instance a 2 mm nodule in the periphery of the right upper lobe on image number 55. 7 mm nodule medial left lower lobe image 185, with adjacent 4 mm nodules. CORONARY ARTERY CALCIFICATION: Present OTHER: There is no localized consolidation. Minimal subsegmental scarring/atelectasis. No effusion or pneumothorax. The central airwaysare patent. The thyroid gland is grossly unremarkable. There is nomediastinal or hilar adenopathy. Postinflammatory calcifications are present. Theheart is normal in size without pericardial effusion. The thoracic aorta isnormal in caliber. No axillary lymphadenopathy. The chest wall is unremarkable. Visualized upper abdomen reveals no significant incidental findings.There is cervical and thoracic spondylosis with degenerative disc disease. IMPRESSION: 7 mm nodule in the medial left lower lobe. Additional tiny nodules bilaterally. Minimal emphysema. Coronary artery calcifications. Additional findings as above. Lung-RADS category 3: Probably benign. Recommendation: Low dose CT of chest in 6 months. THIS IS AN ELECTRONICALLY VERIFIED FINAL REPORT 04/20/2024 7:11 AM - Electronically signed by Carin Benson M.D. TW: JESSICA Report ID: [id number] Reading Location: [id number] Agnieszka Garnica NP IMG CT PROCEDURES Final Resu lt * COLONOSCOPY REPORT (08/18/2012) Anatomical Region Laterality Modality Other Narrative 08/18/2012 Ordered by an unspecified provider. Historical Provider GI PROCEDURE ORDERABLES F inal Result from Last 3 Months or Most Recently Relevant to Health Maintenance Insurance [facility] CHOICE PLUS Care Teams Rn Endoscopy Relationship Specialty Start Date End Date Omid Beatty MD [id number] [place] [address] PCP - General Family Medicine 12/16/19
--- OUTSIDE RECORDS SUMMARY | 2024-07-04 11:12 | XMS_ITS ---
Author Organization [facility] Address [address] [place] [address] Care Team Providers Care Engine Repairer Service Name Role Phone Josef Duff Primary Care Provider UnavailDeepa Jenkins Unavailable [phone] Omid Beatty Unavailable Unavailable Cristóbal Miller Unavailable [phone] REASON FOR VISIT SCIT - Traditional Schedule Allergy immunotherapy Encounters Encounter Location Date Provider Diagnosis [facility] [address] [place] [address] 06/29/2024 Cristóbal Miller Allergic rhinitis du e to pollen J30.1 ; Allergic rhinitis due to animal (cat) (dog) hair and dander J30.81 ; Other allergic rhinitis J30.89 and Other chronic allergic conjunctivitis H10.45 Assessments Encounter Date Diagnosis (ICD Code) Assessment Notes Treatment Notes Treatment Clinical Notes Section Notes 06/29/2024 Allergic rhinitis due to pollen (ICD-10 - J30.1) 06/29/2024 Allergic rhinitis due to animal (cat) (dog) hair and dander (ICD-10 - J30.81) 06/29/2024 Other allergic rhinitis (ICD-10 - J30.89) 06/29/2024 Other chronic allergic conjunctivitis (ICD-10 - H10.45) Plan Of Treatment Next Appt Details Follow Up: 1 Week, Reason: Provider Name:Cristóbal Miller , 07/06/2024 04:10:00 PM, [address], [address], [place], [address], Progress Notes * Glendy OSBORNE CDOB:[birth year] (64 yo F)Acc No.[id number]:06/29/2024 SCIT-Aeroallergen Patient: Glendy BOSS Provider: Sariah Miller MD :1960 A ge:64 Y S ex:Female Date:06/29/2024 Address:[address] [place], [place] [id number] Pcp:Josef Duff Subjective: * Chief Complaints: * 1 . SCIT - Traditional Schedule Allergy immunotherapy. * HPI: * Introduction: The patient is here for scheduled immunotherapy. Please see the attached specialty form regarding the specifics of the administration of these vaccines. As per our protocol, they must undergo a screening health questionnaire (medication changes, reaction(s) to last immunotherapy dose(s), current health status, ACT (if appropriate), self-injectable epinephrine on patient(?) and peak flow (if appropriate)). Also, the patient must wait in our office for 30 minutes after receiving the vaccine(s). Furthermore, every patient must have an epinephrine pen (self-injectable) with them at the time of administration--and carry if for the following 1.5 hours after they leave our office. The patient must also have taken their antihistamine the day of the injection, preferably 2 hours prior. The consent form for SCIT (subcutaneous immunotherapy) is on file. * Medical History: Objective: * Vitals: Assessment: * Assessment: 1. A llergic rhinitis due to pollen - J30.1 (Primary) 2 . A llergic rhinitis due to animal (cat) (dog) hair and dander - J30.81 3 . O ther allergic rhinitis - J30.89 4 . O ther chronic allergic conjunctivitis - H10.45 Plan: * Treatment: * Follow Up: 1 Week * Billing Information: * Visit Code: * Procedure Codes: 28783 IMMUNOTHERAPY INJECTIONS. * Electronic signature of Aman Miller MD, FAAAAI on 07/04/2024 at 11:11 AM DEVELOPMENT ARCHITECT Sign off status: Pending * Provider: Sariah Miller MD Date: 0 06/29/2024 Generated for Waynei travon/Faxing/eTransmitting on: 0 07/04/2024 11:11 AM DEVELOPMENT ARCHITECT History and Physical Notes * HPI (History of Present Illness) Category Sub-Category Detail Notes Category Not es *Introduction The patient is here for scheduled immunotherapy. Please see the attached specialty form regarding the specifics of the administration of these vaccines. As per our protocol, they must undergo a screening health questionnaire (medication changes, reaction(s) to last immunotherapy dose(s), current health status, ACT (if appropriate), self-injectable epinephrine on patient(?) and peak flow (if appropriate)). Also, the patient must wait in our office for 30 minutes after receiving the vaccine(s). Furthermore, every patient must have an epinephrine pen (self-injectable) with them at the time of administration--and carry if for the following 1.5 hours after they leave our office. The patient must also have taken their antihistamine the day of the injection, preferably 2 hours prior. The consent form for SCIT (subcutaneous immunotherapy) is on file.
--- OUTSIDE RECORDS SUMMARY | 2024-07-04 11:12 | XMS_ITS | Clinical Summary ---
Author Organization [facility] Address [address] [place] [address] Phone Care Team Providers Care Hot Knife Cutter Name Role Phone Josef Ledbetter MD Primary Care Provider [phone] Social History Tobacco Use Types Packs/Day Years Used Date Smoking Tobacco: Never Assessed Comments Unknown Sex and Gender Information Value Date Recorded Sex Assigned at Not on file Legal Sex Female 2:05 PM CDT Gender Identity Not on file Sexual Orientation Not on file Plan of Treatment Health Maintenance Due Date Last Done Comments DTAP/TDAP/TD VACCINES (1 - Tdap) 1979 CERVICAL CANCER SCREENING 1990 BREAST CANCER SCREENING 2000 COLORECTAL SCREENING 2005 Colorectal Cancer Screening 2005 FIT-DNA Q 3 years 2005 FIT/FOBT Q 1 year 2005 Flex Sig/CT Colonography Q 5 years 2005 ZOSTER VACCINE (1 of 2) 2010 INFLUENZA VACCINE (#1) 2023 RSV VACCINE (60+ or ) (1 - 1-dose 75+ series) 2035 Insurance [facility] [id number] Care Teams Hot Knife Cutter Relationship Specialty Start Date End Date Josef Ledbetter MD PCP - General Internal Medicine 07/27/15
--- OUTSIDE RECORDS SUMMARY | 2024-07-04 11:12 | XMS_ITS | Patient Health Summary ---
Author Organization [facility] Address [address] [address] Care Team Providers Care Service Support Representative Name Role Phone Josef Ledbetter MD Primary Care Provider [phone] Note from [facility],non-owned Affiliates and Associated Physician Practices is amultiple site organization consisting of ambulatory clinics and hospital sitesin [place], [place], [place] and [place]. This disclosure is being madepursuant to the Care Everywhere program and may not contain all information available regarding this patient. Last updated 18.[facility] Allergies * Codeine * Diclofenac Sodium Medications * Be aware that medications may not be up to date on this document. Alwaysverify current medications with the patient. * atorvastatin (LIPITOR) 10 MG tablet Take 10 mg by mouth at bedtime * lisinopril (PRINIVIL;ZESTRIL) 5 MG tablet Take 5 mg by mouth once daily * hydrocodone-acetaminophen (NORCO) 5-325 MG tablet Take 1 Tab by mouth every 4 hours as needed for Pain * ALPRAZolam (XANAX) 0.5 MG tablet Take 0.5 mg by mouth 3 times daily as needed for Anxiety Social History Tobacco Use Types Packs/Day Years Used Date Smoking Tobacco: Former Cigarettes 1 30 0 05/31/1983 - 05/31/2013 Smokeless Tobacco: Never Alcohol Use Standard Drinks/Week Comments Yes 7 (1 standard drink = 0.6 oz pur e alcohol) Sex and Gender Information Value Date Recorded Sex Assigned at Not on file Gender Identity Not on file Sexual Orientation Not on file Last Filed Vital Signs Vital Sign Reading Time Taken Comments Blood Pressure - - Pulse - - Temperature - - Respiratory Rate - - Oxygen Saturation - - Inhaled Oxygen Concentration - - Weight 80.7 kg (178 lb) 05/23/2015 10:14 AM MEDICAL RADIATION DOSIMETRIST Height 160 cm (5' 3 ) 05/23/2015 10:14 AM MEDICAL RADIATION DOSIMETRIST Body Mass Index 31.53 05/23/2015 10:14 AM MEDICAL RADIATION DOSIMETRIST Procedures * IMAGING/RADIOLOGY/XRAY RESULTS ORDER(Performed 10/07/2016) * IMAGING/RADIOLOGY/XRAY RESULTS ORDER(Performed 08/19/2016) * IMAGING/RADIOLOGY/XRAY RESULTS ORDER(Performed 03/28/2015) Results * IMAGING/RADIOLOGY/XRAY RESULTS ORDER (10/07/2016) Only the most recent of3 resultswithin the time period is included. Anatomical Region Laterality Modality Other Abraham Goldman DO IMAGING Care Teams Service Support Representative Relationship Specialty Start Date End Date Josef Ledbetter MD PCP - General Internal Medicine 03/30/15
--- OUTSIDE RECORDS SUMMARY | 2024-07-04 11:12 | XMS_ITS ---
Author Organization [facility] Address [address] [place] [address] Care Team Providers Care Count Room Clerk Name Role Phone Duff Josef Primary Care Provider UnavailDeepa Jenkins Unavailable [phone] Omid Beatty Unavailable Unavailable Cristóbal Miller Unavailable [phone] REASON FOR VISIT SCIT - Traditional Schedule Allergy immunotherapy Medications Medication SIG (Take, Route, Frequency, Duration) Notes Start Date End Date Status BREO ELLIPTA 100 mcg-25 mcg/inh 1 puff(s) inhaled once a day for 30 days Not-Taking ATORVASTATIN 20 mg 1 tab(s) orally once a day for 30 day(s) Not-Taking VALSARTAN 80 mg 1 tab(s) orally once a day for 30 day(s) Not-Taking EPINEPHRINE 0.3 mg as directed intramuscularly once for 30 days Not-Taking Breo Ellipta 100-25 MCG/ACT 1 puff Inhalation Once a day for 90 days Active Montelukast Sodium 10 MG 1 tab(s) orally once a day Active EPINEPHrine 0.3 MG/0.3ML as directed Injection as needed for 30 days 12/07/2023 Active Albuterol Sulfate HFA 108 (90 Base) MCG/ACT 1 puff as needed Inhalation every 4 hrs for 30 days 12/07/2023 Active Valsartan 80 MG 1 tab(s) orally once a day for 30 day(s) Active EPINEPHrine 0.3 MG DIRECTED INTRAMUSCULARLY ONCE for 30 DAYS *Please review and pick correct strength-formula tion from Medispan options. If intended option is not shown, discontinue and re-order from Quick Search* Active Nasacort Allergy 24HR 55 MCG/ACT 2 spray(s) intranasally once a day for 30 day(s) Active Auvi-Q 0.3 MG/0.3ML as directed intramuscularly once for 30 day(s) Active Famotidine 40 MG 1 tab(s) orally once a day (at bedtime) Active SLOW MAGNESIUM CHLORIDE WITH CALCIUM 118 MG-71 MG 2 TAB(S) ORALLY ONCE A DAY *Please review for potential replacement for e-prescription and drug interaction check* Active Atorvastatin Calcium 20 MG 1 tab(s) orally once a day for 30 day(s) Active SIT (TRADITIONAL) variable per schedule SC per schedule for to be determined Active PROAIR HFA 90 mcg/inh 2 puff(s) inhaled Q4-6 hours, PRN and per the asthma action plan for 30 day(s) Active MONTELUKAST SODIUM 10 mg 1 tab(s) orally once a day Active ZyrTEC Allergy 10 MG 1 tab(s) orally once a day Active FAMOTIDINE 40 mg 1 tab(s) orally once a day (at bedtime) Active ZYRTEC 10 mg 1 tab(s) orally once a day Active NASACORT ALLERGY 24HR 55 mcg/inh 2 spray(s) intranasally once a day for 30 day(s) Active AUVI -Q 0.3 mg as directed intramuscularly once for 30 day(s) Active NASAL WASHES N/A as directed intranasally as needed for 30 Active Encounters Encounter Location Date Provider Diagnosis [facility] [address] [facility] [address] [place] [address] 04/27/2024 Cristóbal Miller Allergic rhinitis du e to pollen J30.1 ; Allergic rhinitis due to animal (cat) (dog) hair and dander J30.81 ; Other allergic rhinitis J30.89 and Other chronic allergic conjunctivitis H10.45 Assessments Encounter Date Diagnosis (ICD Code) Assessment Notes Treatment Notes Treatment Clinical Notes Section Notes 04/27/2024 Allergic rhinitis due to pollen (ICD-10 - J30.1) 04/27/2024 Allergic rhinitis due to animal (cat) (dog) hair and dander (ICD-10 - J30.81) 04/27/2024 Other allergic rhinitis (ICD-10 - J30.89) 04/27/2024 Other chronic allergic conjunctivitis (ICD-10 - H10.45) Plan Of Treatment Next Appt Details Follow Up: 1 Week, Reason: Provider Name:Cristóbal AlfaroLucretia Miller , 07/06/2024 04:10:00 PM, [address] [facility], [address], [place], [address], Progress Notes * Glendy OSBORNE CDOB:[birth year] (64 yo F)Acc No.[id number]:04/27/2024 SCIT-Aeroallergen Patient: Glendy BOSS Provider: Sariah Miller MD :1960 A ge:64 Y S ex:Female Date:04/27/2024 Address:[address] [place], [place] [id number] Pcp:Josef Duff Subjective: * Chief Complaints: * S CIT - Traditional Schedule Allergy immunotherapy * HPI: * Introduction: The patient is [...] immunotherapy) is on file. * Medical History: * Surgical History: * Hospitalization/Major Diagno stic Procedure: * Medications: T akingZYRTEC 10 mg tablet 1 tab(s) orally once a day NASACORT ALLERGY 24HR 55 mcg/inh spray 2 spray(s) intranasally once a day AUVI -Q 0.3 mg kit as directed intramuscularly once NASAL WASHES N/A 1 quart of sterilized tap water or distilled water, 1 tsp NaCl, 1 pinch of baking soda as directed intranasally as needed FAMOTIDINE 40 mg tablet 1 tab(s) orally once a day (at bedtime) SIT (TRADITIONAL) variable see record per schedule SC per schedule PROAIR HFA 90 mcg/inh aerosol 2 puff(s) inhaled Q4-6 hours, PRN and per the asthma action plan MONTELUKAST SODIUM 10 mg tablet 1 tab(s) orally once a day ZyrTEC Allergy 10 MG Tablet 1 tab(s) orally once a day Nasacort Allergy 24HR 55 MCG/ACT Aerosol 2 spray(s) intranasally once a day Auvi-Q 0.3 MG/0.3ML Solution Auto-injector as directed intramuscularly once Famotidine 40 MG Tablet 1 tab(s) orally once a day (at bedtime) SLOW MAGNESIUM CHLORIDE WITH CALCIUM 118 MG-71 MG DELAYED RELEASE TABLET 2 TAB(S) ORALLY ONCE A DAY , Notes to Pharmacist: *Please review for potential replacement for e- prescription and drug interaction check*Atorvastatin Calcium 20 MG Tablet 1 tab(s) orally once a day Valsartan 80 MG Tablet 1 tab(s) orally once a day EPINEPHrine 0.3 MG KIT DIRECTED INTRAMUSCULARLY ONCE , Notes to Pharmacist: *Please review and pick correct strength-formulation from Soundayan options. If intended option is not shown, discontinue and re-order from Quick Search*Montelukast Sodium 10 MG Tablet 1 tab(s) orally once a day EPINEPHrine 0.3 MG/0.3ML Solution Auto-injector as directed Injection as needed Albuterol Sulfate HFA 108 (90 Base) MCG/ACT Aerosol Solution 1 puff as needed Inhalation every 4 hrs Breo Ellipta 100-25 MCG/ACT Aerosol Powder Breath Activated 1 puff Inhalation Once a day Taking ZYRTEC 10 mg tablet 1 tab(s) orally once a day Taking NASACORT ALLERGY 24HR 55 mcg/inh spray 2 spray(s) intranasally once a day Taking AUVI -Q 0.3 mg kit as directed intramuscularly once Taking NASAL WASHES N/A 1 quart of sterilized tap water or distilled water, 1 tsp NaCl, 1 pinch of baking soda as directed intranasally as needed Taking FAMOTIDINE 40 mg tablet 1 tab(s) orally once a day (at bedtime) Taking SIT (TRADITIONAL) variable see record per schedule SC per schedule Taking PROAIR HFA 90 mcg/inh aerosol 2 puff(s) inhaled Q4-6 hours, PRN and per the asthma action plan Taking MONTELUKAST SODIUM 10 mg tablet 1 tab(s) orally once a day Taking ZyrTEC Allergy 10 MG Tablet 1 tab(s) orally once a day Taking Nasacort Allergy 24HR 55 MCG/ACT Aerosol 2 spray(s) intranasally once a day Taking Auvi-Q 0.3 MG/0.3ML Solution Auto-injector as directed intramuscularly once Taking Famotidine 40 MG Tablet 1 tab(s) orally once a day (at bedtime) Taking SLOW MAGNESIUM CHLORIDE WITH CALCIUM 118 MG-71 MG DELAYED RELEASE TABLET 2 TAB(S) ORALLY ONCE A DAY , Notes to Pharmacist: *Please review for potential replacement for e-prescription and drug interaction check*Taking Atorvastatin Calcium 20 MG Tablet 1 tab(s) orally once a day Taking Valsartan 80 MG Tablet 1 tab(s) orally once a day Taking EPINEPHrine 0.3 MG KIT DIRECTED INTRAMUSCULARLY ONCE , Notes to Pharmacist: *Please review and pick correct strength-formulation from G[employer]house options. If intended option is not shown, discontinue and re-order from Quick Search*Taking Montelukast Sodium 10 MG Tablet 1 tab(s) orally once a day Taking EPINEPHrine 0.3 MG/0.3ML Solution Auto-injector as directed Injection as needed Taking Albuterol Sulfate HFA 108 (90 Base) MCG/ACT Aerosol Solution 1 puff as needed Inhalation every 4 hrs Taking Breo Ellipta 100-25 MCG/ACT Aerosol Powder Breath Activated 1 puff Inhalation Once a day Not-Taking/PRNBREO ELLIPTA 100 mcg-25 mcg/inh powder 1 puff(s) inhaled once a day ATORVASTATIN 20 mg tablet 1 tab(s) orally once a day VALSARTAN 80 mg tablet 1 tab(s) orally once a day EPINEPHRINE 0.3 mg kit as directed intramuscularly once Not-Taking/PRN BREO ELLIPTA 100 mcg-25 mcg/inh powder 1 puff(s) inhaled once a day Not-Taking/PRN ATORVASTATIN 20 mg tablet 1 tab(s) orally once a day Not-Taking/PRN VALSARTAN 80 mg tablet 1 tab(s) orally once a day Not-Taking/PRN EPINEPHRINE 0.3 mg kit as directed intramuscularly once Objective: * Vitals: Assessment: * Assessment: 1. A llergic rhinitis due to pollen - J30.1 (Primary) 2 . A llergic rhinitis due to animal (cat) (dog) hair and dander - J30.81 3 . O ther allergic rhinitis - J30.89 4 . O ther chronic allergic conjunctivitis - H10.45 Plan: * Treatment: * Procedure Codes: 9 5117 IMMUNOTHERAPY INJECTIONS * Follow Up: 1 Week * Billing Information: * Visit Code: * Procedure Codes: 31153 IMMUNOTHERAPY INJECTIONS. * TRIC SPOT WELDER Sign off status: Completed true * Provider: Sariah Miller MD Date: 06/28/2023 Generated for Nora cool/Shai/Val on: 0 07/04/2024 11:12 AM ELECTRIC SPOT WELDER History and Physical Notes * HPI (History [...]
--- OUTSIDE RECORDS SUMMARY | 2024-07-04 11:12 | XMS_ITS | Continuity of Care Document ---
Author Organization [facility] Address [address] [place] [address] Phone Care Team Providers Care Paper Rewinder Name Role Phone Ashraf OD, Jabier Unavailable Unavailable Procedures Procedure Date Eye Exam & Treatment Refraction Office/outpatient Visit, Est Office/outpatient Visit, Est Office/outpatient Visit, Est Office/outpatient Visit, Est Office/outpatient Visit, Est Advance Directives Directive Yes / No Effective Date File Name No Information Encounters Encounter Description Practice Location Reason(s) For Visit Diagnoses Date Provider Providers Copied on Encounter [facility], [address] [place] [address] [address], [place], [place], [address], [place] tel:[phone] [facility] No Information 8-201 0 Sahraf OD Jabier. [address] , [address], [place], [address], [place]. tel:[phone] Office/outpat ient Visit, [facility], [address] [place] [address] [address], [place], [place], [address], [place] tel:[phone] SEC Bandar Kennedy No Information 1 7 Bianca Schwartz. [address] [facility], [address], [place], [place], [address], [place]. tel:[phone] Office/outpat ient Visit, [facility], [address], [place], [place], [address], tel:[phone] SEC Band[facility] Kennedy No Information 0-200 7 Magaly Ugarte. [address] [place] [address] [facility] [facility], [address], [place], [place], [address], . tel:[phone] Office/outpat ient Visit, [facility], [address] [place] [address] [address], [place], [place], [address], tel:[phone] SEC Bandar Kennedy No Information 2-200 7 Magaly Ugarte. [address] [place] [address] [facility], [address], [place], [place], [address], . tel:[phone] Referring Provider: Jabier Villatoro, [address] [place], [place] [address], [place], [place], [facility]. tel:[phone] Office/outpat ient Visit, [facility], [address] [place] [address] [address], [place], [place], [address], tel:[phone] [facility] No Information 7-200 7 Ashraf OD Jabier. [address] [place] [address] [address], [place], [place], [facility], . tel:[phone] Office/outpat ient Visit, [facility], [address] [place] [address] [address], [place], [place], [address], tel:[phone] [facility] No Information 1-200 7 Ashraf OD Jabier. [address] [place], [place] [address], [place], [place], [facility], . tel:[phone] Family History Family Member Type Diagnosis Age At Onset No Information Payers Payer name Insurance type Covered constitution party ID Alex mariedionte(s) VSP CI [id number] Social History Type Description Quantity Date Captured Comments Sex Female Smoking Status No Information Chief Complaint And Reason For Visit No Information Reason For Referral Reason For Referral No Information History Of Present Illness Encounter Date Complaint History Of Prese nt Illness No Information Functional Status Date Functional Assessmen t No Information Instructions Date Instruction Additional Infor mation No Information Assessments Type Assessment Date No Information Patient Care Teams Name Effective Dates (start - stop) Status Members No Information
--- OUTSIDE RECORDS SUMMARY | 2024-07-04 11:12 | XMS_ITS | Referral Summary ---
Author Organization [facility] Address [address] [place] [address] Care Team Providers Care Drywall Sander Name Role Phone Josef Ledbetter MD Primary Care Provider [phone] Source Comments [facility],non-owned Affiliates and Associated Physician Practices is amultiple site organization consisting of ambulatory clinics and hospital sitesin [place], [place], [place] and [place]. This disclosure is being madepursuant to the Care Everywhere program and may not contain all information available regarding this patient. Last updated 18.[facility] Allergies Active Allergy Reactions Criticality Noted Date Comments Codeine 05/23/2015 Diclofenac Sodium 05/23/2015 Medications * Be aware that medications may not be up to date on this document. Alwaysverify current medications with the patient. Medication Sig Dispensed Refills Start Date End Date Status atorvastatin (LIPITOR) 10 MG tablet Take 10 mg by mouth at bedtime Active lisinopril (PRINIVIL;ZESTRIL) 5 MG tablet Take 5 mg by mouth once daily Active hydrocodone-acetaminop hen (NORCO) 5-325 MG tablet Take 1 Tab by mouth every 4 hours as needed for Pain Active ALPRAZolam (XANAX) 0.5 MG tablet Take 0.5 mg by mouth 3 times daily as needed for Anxiety Active Social History Tobacco Use Types Packs/Day Years [...] 80.7 kg (178 lb) 05/23/2015 10:14 AM SHARED SERVICES MANAGER Height 160 cm (5' 3 ) 05/23/2015 10:14 AM SHARED SERVICES MANAGER Body Mass Index 31.53 05/23/2015 10:14 AM SHARED SERVICES MANAGER Plan of Treatment Not on file Care Teams Drywall Sander Relationship Specialty Start Date End Date Josef Ledbetter MD PCP - General Internal Medicine 03/30/15
--- OUTSIDE RECORDS SUMMARY | 2024-07-04 11:12 | XMS_ITS | Clinical Summary ---
Author Organization [facility] Address [address] [place] [address] Care Team Providers Care Foreman Shipping Department Name Role Phone Omid Beatty MD Primary Care Provider [phone] Allergies Active Allergy Reactions Criticality Noted Date [...] 07/28/2011 Hypercholesterolemia 03/17/2011 Hydronephrosis 10/24/2009 Anxiety 10/24/2009 Encounters Date Type Department Care Team Description 04/14/2024 3:03 PM MANUAL CONTROL AUGER PRESS OPERATOR - 04/14/2024 11:59 PM MANUAL CONTROL AUGER PRESS OPERATOR Hospital Encounter [facility] [address] [place] [address] Encounter for screening for lung cancer Discharge Disposition: Discharge to home or self care from Last 3 Months Surgical History Surgery Date Site/Laterality Comments NV APPENDECTOMY Appendectomy - (Added by TW Conv) NV LAPAROSCOPY SURG PYELOPLASTY Kidney Surgery Laparoscopic Pyeloplasty - (Added by TW Conv) ELBOW SURGERY Elbow Surgery - (Added by TW Conv) NV LIG/TRNSXJ FLP TUBE ABDL/ VAG APPR UNI/BI Tubal Ligation - (Added by TW Conv) NV TONSILLECTOMY PRIMARY/SECONDARY <AGE 12 Tonsillectomy - (Added by TW Conv) Medical History Medical History Date Comments Crossing vessel and 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 hydronephrosis Ureteral obstruction - (Adde d by TW Conv) Dizziness Ringing in ears Family History Medical History Relation Name Comments COPD Brother 1 Chronic Obstruc tive Pulmonary Disease - (Added by TW Conv) Diabetes Brother 2 Diabetes Mellit us - (Added by TW Conv) Emphysema Father Emphysema - (Ad ded by TW Conv) Relation Name Status Comments Brother 1 Brother 2 Father Social History Tobacco Use Types Packs/Day Years Used Date Smoking Tobacco: Former Tobacco Cessation:Counseling Given: Not Answered Alcohol Use Standard Drinks/Week Comments Yes 1 (1 standard drink = 0.6 oz pur e alcohol) Comments Unknown Sex and Gender Information Value Date Recorded Sex Assigned at Not on file Legal Sex Female 12:05 PM MANUAL CONTROL AUGER PRESS OPERATOR Gender Identity Not on file Sexual Orientation Not on file Obstetrics History Last Filed Vital Signs Vital Sign Reading [...] 01/19/2022 6:19 PM CDT Plan of Treatment Health Maintenance Due Date Last Done Comments Breast Cancer Screening-Mammogram 1960 Cervical Cancer Screening 1960 Depression Screening 1960 Hepatitis C Screening 1960 DTaP/Tdap/Td Vaccine (1 - Tdap) 1971 Hepatitis B Screening 1978 Regular Well Visit/Exam 18-64 1978 Zoster Vaccine (1 of 2) 2010 Colon Cancer Screening-Colonoscopy 08/18/2022 08/18/2012 Influenza Vaccine (#1) 2024 3, 05/11/2020, 02/10/2020, Additional history exists Colon Cancer Screening-CT Colonography Discontinued 08/18/2012 Colon Cancer Screening-DNA Stool Discontinued 08/18/2012 Colon Cancer Screening-FIT Discontinued 08/18/2012 Colon Cancer Screening-Sigmoidoscopy Discontinued 08/18/2012 Pneumococcal vaccine <65 Aged Out No longer eligible based on patient's age to complete this topic Procedures Procedure Name Priority Date/Time Associated Diagnosis Comments CT LUNG CANCER SCREENING Schedule Routine, Read Routine (OP Routine) 04/14/2024 3:47 PM MANUAL CONTROL AUGER PRESS OPERATOR Encounter for screening for lung cancer COLONOSCOPY REPORT 08/18/2012 from Last 3 Months or Most Recently Relevant to Health Maintenance Results * CT Lung Cancer Screening (04/14/2024 3:47 PM MANUAL CONTROL AUGER PRESS OPERATOR) Anatomical Region Laterality Modality Chest N/A Computed Tomogra phy 04/20/2024 7:06 AM MANUAL CONTROL AUGER PRESS OPERATOR Narrative 04/20/2024 7:11 AM MANUAL CONTROL AUGER PRESS OPERATOR EXAM DESCRIPTION: CT LUNG CANCER SCREENING REASON [...] Carin Benson M.D. TW: JESSICA Report ID: [id number] Reading Location: [id number] Procedure Note Carin Benson MD - 04/20/2024 [...] Carin Benson M.D. TW: JESSICA Report ID: [id number] Reading Location: [place] [address] [place] Agnieszka Garnica NP IMG CT PROCEDURES Final Resu lt * COLONOSCOPY REPORT (08/18/2012) Anatomical Region Laterality Modality Other Narrative 08/18/2012 Ordered by an unspecified provider. us Historical Provider MD GARCIA PROCEDURE ORDERABLES F inal Result from Last 3 Months or Most Recently Relevant to Health Maintenance Insurance [facility] CHOICE PL[employer] [facility] HMO/PPO [place] [address] [facility] [employer] [facility] H[facility]/PPO Address: [place] [id number] [place] [address] Care Teams Foreman Shipping Department Relationship Specialty Start Date End Date Omid Beatty MD [address] [place] [address] PCP - General Family Medicine 12/16/19
--- OUTSIDE RECORDS SUMMARY | 2024-07-04 11:12 | XMS_ITS | CONTINUITY OF CARE DOCUMENT ---
Author Name robert jones Address Unknown Organization [facility] Address [address] [facility] [address] [place] [address] Phone [phone] Care Team Providers Care Theatrical Agent Name Role Phone ROSEMARY FORMAN MD Unavailable [phone] ROSEMARY FORMAN MD Unavailable [phone] INSURANCE PROVIDERS Payer name Policy type / Coverage type [place] red republican ID [facility] [id number] Other [id number]
--- OUTSIDE RECORDS SUMMARY | 2024-07-04 11:12 | XMS_ITS ---
Author Organization [facility] Address [address] [place] [address] Care Team Providers Care Rn Neonatal Icu Name Role Phone Nehemias Duffin Primary Care Provider UnavailDeepa Jenkins Unavailable [phone] Omid Beatty Unavailable Unavailable Cristbóal Miller Unavailable [phone] REASON FOR VISIT SCIT - Traditional Schedule Allergy immunotherapy Medications Medication SIG (Take, Route, Frequency, Duration) Notes Start Date End Date Status Albuterol Sulfate HFA 108 (90 Base) MCG/ACT 1 puff as needed Inhalation every 4 hrs for 30 days 12/07/2023 Active Valsartan 80 MG 1 tab(s) orally once a day for 30 day(s) Active EPINEPHrine 0.3 MG DIRECTED INTRAMUSCULARLY ONCE for 30 DAYS *Please review and pick correct strength-formula tion from Devunity options. If intended option is not shown, discontinue and re-order from Quick Search* Active EPINEPHrine 0.3 MG/0.3ML as directed Injection as needed for 30 days 12/07/2023 Active Montelukast Sodium 10 MG 1 tab(s) orally once a day Active Auvi-Q 0.3 MG/0.3ML as directed intramuscularly once for 30 day(s) Active Nasacort Allergy 24HR 55 MCG/ACT 2 spray(s) intranasally once a day for 30 day(s) Active Atorvastatin Calcium 20 MG 1 tab(s) orally once a day for 30 day(s) Active SLOW MAGNESIUM CHLORIDE WITH CALCIUM 118 MG-71 MG 2 TAB(S) ORALLY ONCE A DAY *Please review for potential replacement for e-prescription and drug interaction check* Active Famotidine 40 MG 1 tab(s) orally once a day (at bedtime) Active ZyrTEC Allergy 10 MG 1 tab(s) orally once a day Active MONTELUKAST SODIUM 10 mg 1 tab(s) orally once a day Active PROAIR HFA 90 mcg/inh 2 puff(s) inhaled Q4-6 hours, PRN and per the asthma action plan for 30 day(s) Active SIT (TRADITIONAL) variable per schedule SC per schedule for to be determined Active FAMOTIDINE 40 mg 1 tab(s) orally once a day (at bedtime) Active Breo Ellipta 100-25 MCG/ACT 1 puff Inhalation Once a day for 90 days Active AUVI -Q 0.3 mg as directed intramuscularly once for 30 day(s) Active NASACORT ALLERGY 24HR 55 mcg/inh 2 spray(s) intranasally once a day for 30 day(s) Active ZYRTEC 10 mg 1 tab(s) orally once a day Active NASAL WASHES N/A as directed intranasally as needed for 30 Active VALSARTAN 80 mg 1 tab(s) orally once a day for 30 day(s) Not-Taking ATORVASTATIN 20 mg 1 tab(s) orally once a day for 30 day(s) Not-Taking BREO ELLIPTA 100 mcg-25 mcg/inh 1 puff(s) inhaled once a day for 30 days Not-Taking EPINEPHRINE 0.3 mg as directed intramuscularly once for 30 days Not-Taking Encounters Encounter Location Date Provider Diagnosis [facility] [address] [facility] [address] [place] [address] 05/25/2024 Cristóbal Miller Allergic rhinitis du e to pollen J30.1 ; Allergic rhinitis due to animal (cat) (dog) hair and dander J30.81 ; Other allergic rhinitis J30.89 and Other chronic allergic conjunctivitis H10.45 Assessments Encounter Date Diagnosis (ICD Code) Assessment Notes Treatment Notes Treatment Clinical Notes Section Notes 05/25/2024 Allergic rhinitis due to pollen (ICD-10 - J30.1) 05/25/2024 Allergic rhinitis due to animal (cat) (dog) hair and dander (ICD-10 - J30.81) 05/25/2024 Other allergic rhinitis (ICD-10 - J30.89) 05/25/2024 Other chronic allergic conjunctivitis (ICD-10 - H10.45) Plan Of Treatment Next Appt Details Follow Up: 1 Week, Reason: Provider Name:Cristóbal AlfaroLucretia Miller , 07/06/2024 04:10:00 PM, [address] [facility], [address], [place], [address], Progress Notes * Glendy OSBORNE CDOB:[birth year] (64 yo F)Acc No.[id number]:05/25/2024 SCIT-Aeroallergen Patient: Glendy BOSS Provider: Sariah Miller MD :1960 A ge:64 Y S ex:Female Date:05/25/2024 Address:[address] [place], [place] [id number] Pcp:Josef Duff Subjective: * Chief Complaints: * [...] *Please review and pick correct strength-formulation from Gymtrackan options. If intended option is not shown, [...] *Please review and pick correct strength-formulation from Devunity options. If intended option is not shown, [...] Information: * Visit Code: * Procedure Codes: 54615 IMMUNOTHERAPY INJECTIONS. * ER HAND Sign off status: Completed true * Provider: Sariah Miller MD Date: 0 05/25/2024 Generated for Nora cool/Shai/Val on: 0 07/04/2024 11:11 AM WASHER HAND History and Physical Notes * HPI (History [...]
--- OUTSIDE RECORDS SUMMARY | 2024-07-04 11:12 | XMS_ITS | Clinical Summary ---
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 This disclosure is being madepursuant to the Care Everywhere program and may not contain all information available regarding this patient. Last updated 18.[facility] Allergies Active Allergy Reactions Criticality Noted Date [...] 80.7 kg (178 lb) 05/23/2015 10:14 AM [employer] Height 160 cm (5' 3 ) 05/23/2015 10:14 AM [employer] Body Mass Index 31.53 05/23/2015 10:14 AM [employer] Plan of Treatment Health Maintenance Due Date Last Done Comments COLOGUARD (AGES 45-75) - COL ON CA SCREENING 1960 COLON MONITORING 1960 COLONOSCOPY - COLON CA SCREENING 1960 CT COLONOGRAPHY - COLON CA SCREENING 1960 Colorectal Cancer Screening 1960 FIT - COLON CA SCREENING 1960 FLEX SIG - COLON CA SCREENING 1960 MAMMOGRAM 1960 PAP SMEAR 1960 HIV SCREENING 1975 HEPATITIS C SCREENING 04/18/1978 DTAP/TDAP/TD VACCINES (1 - Tdap) 1979 PNEUMOCOCCAL VACCINE 50+ (1 of 1 - PCV) 2010 ZOSTER VACCINE (1 of 2) 2010 COVID-19 VACCINE (1 - 2023-2 5 season) 2024 INFLUENZA VACCINE (#1) 2024 DEPRESSION SCREENING 05/11/2024 Respiratory Syncytial Virus (RSV) Vaccine Pt: or over 60 yrs (1 - 1-dose 75+ series) 2035 HEPATITIS B VACCINE Aged Out No longe r eligible based on patient's age to complete this topic HIB VACCINE Aged Out No longer eligi ble based on patient's age to complete this topic HPV VACCINE Aged Out No longer eligi ble based on patient's age to complete this topic MENINGOCOCCAL (Group B) VACCINE Aged Out No longer eligible based on patient's age to complete this topic MENINGOCOCCAL VACCINE Aged Out No herber stephanie eligible based on patient's age to complete this topic PNEUMOCOCCAL VACCINE Aged Out No long er eligible based on patient's age to complete this topic Care Teams Dining Car Waiter/Waitress Relationship Specialty Start Date End Date Josef Ledbetter MD PCP - General Internal Medicine 03/30/15
--- OUTSIDE RECORDS SUMMARY | 2024-07-04 11:16 | XMS_ITS | CONTINUITY OF CARE DOCUMENT ---
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
--- OUTSIDE RECORDS SUMMARY | 2024-07-04 11:16 | XMS_ITS | Patient Health Record ---
Author Organization [facility] Address [address] [place] [address] Care Team Providers Care Sales Coach Name Role Phone Duff Josef Primary Care Provider UnavailDeepa Jenkins Unavailable [phone] Omid Beatty Unavailable Unavailable Cristóbal Miller Unavailable [phone] Nadia Conte Unavailable [phone] [facility], Provider Unavailable Unavailab le Allergies Allergen (clinical drug ingredient) Drug/Non Drug Allergy documented on EMR Reaction Allergy Type Onset Date Status diclofenac Diclofenac hives Drug Allergy Activ e lisinopril Lisinopril hives Drug Allergy Activ e codeine Codeine vomiting Drug Allergy Active Results Component Value Reference Range Notes Spirometry Reviewed date:10/21/2023 06:16:58 PM Interpretation:Normal Performing Lab: Notes/Report: Normal SpiroPreBronchodilator_FVC 2.9 SpiroPostBronchodilator_FEF25_75 0 SpiroPreBronchodilator_FEF25_75 1.74 SpiroPreBronchodilator_FEV1 2.18 SpiroPrecentPredictionPost_FEF25_75 0 SpiroPrecentPredictionPost_FEV1 0 SpiroPrecentPredictionPost_FEV1_OVER_FVC 0 SpiroPrecentPredictionPost_FVC 0 SpiroPrecentPredictionPre_FEF25_75 77.3 SpiroPrecentPredictionPre_FEV1 95.2 SpiroPrecentPredictionPre_FEV1_OVER_FVC 95.7 SpiroPrecentPredictionPre_FVC 99.7 SpiroPredicted_FEF25_75 2.25 SpiroPreBronchodilator_FEV1_OVER_FVC 75.01 SpiroPreBronchodilator_PEF 5.49 SpiroPostBronchodilator_FVC 0 SpiroPostBronchodilator_FEV1 0 SpiroPostBronchodilator_FEV1_OVER_FVC 0 SpiroPostBronchodilator_PEF 0 SpiroPredicted_FVC 2.91 SpiroPredicted_FEV1 2.29 SpiroPredicted_FEV1_OVER_FVC 78.38 SpiroPredicted_PEF 5.53 Reason For Referral No Information Medications Medication SIG (Take, Route, Frequency, Duration) Notes Start Date End Date Status EPINEPHrine 0.3 MG DIRECTED INTRAMUSCULARLY ONCE for 30 DAYS *Please review and pick correct strength-formula tion from [employer] options. If intended option is not shown, discontinue and re-order from Quick Search* Active Auvi-Q 0.3 MG/0.3ML as directed intramuscularly once for 30 day(s) Active VALSARTAN 80 mg 1 tab(s) orally once a day for 30 day(s) Not-Taking Nasacort Allergy 24HR 55 MCG/ACT 2 spray(s) intranasally once a day for 30 day(s) Active ATORVASTATIN 20 mg 1 tab(s) orally once a day for 30 day(s) Not-Taking ZyrTEC Allergy 10 MG 1 tab(s) orally once a day Active BREO ELLIPTA 100 mcg-25 mcg/inh 1 puff(s) inhaled once a day for 30 days Not-Taking MONTELUKAST SODIUM 10 mg 1 tab(s) orally once a day Active Albuterol Sulfate HFA 108 (90 Base) [...] for e-prescription and drug interaction check* Active Breo Ellipta 100-25 MCG/ACT 1 puff Inhalation Once a day for 90 days Active Famotidine 40 MG 1 tab(s) orally once a day (at bedtime) Active EPINEPHRINE 0.3 mg as directed intramuscularly once for 30 days Not-Taking AUVI -Q 0.3 mg as directed intramuscularly once for 30 day(s) Active NASACORT ALLERGY 24HR 55 mcg/inh 2 spray(s) intranasally once a day for 30 day(s) Active ZYRTEC 10 mg 1 tab(s) orally once a day Active PROAIR HFA 90 mcg/inh 2 puff(s) inhaled Q4-6 hours, PRN and per the asthma action plan for 30 day(s) Active EPINEPHrine 0.3 MG/0.3ML as directed Injection as needed for 30 days 12/07/2023 Active SIT (TRADITIONAL) variable per schedule SC per schedule for to be determined Active Montelukast Sodium 10 MG 1 tab(s) orally once a day Active FAMOTIDINE 40 mg 1 tab(s) orally once a day (at bedtime) Active NASAL WASHES N/A as directed intranasally as needed for 30 Active Immunizations Vaccine Route Administration Date Status Comme nts Influenza Unknown 02/20/2019 Administered Portal Infor mation NOC Flucelevax Quadrivalent Unknown 05/11/2020 Administered Social History Tobacco Use: Social History Observation Description Date Details (start date - stop date) Former Smoker NA - NA Tobacco Control (Standard) Question Answer Notes Tobacco use: Former smoker Problems Problem Type SNOMED Code ICD Code Onset Dates Problem Status W/U Status Risk Notes Problem Chronic allergic conjunctivitis (59718712) Other chronic allergic conjunctivitis (H10.45) Active confirmed Problem Tinnitus (58938794) Tinnitus, unspecified ear (H93.19) Active confirmed Problem Allergic rhinitis (83340413) Other allergic rhinitis (J30.89) Active confirmed Problem Uncomplicated moderate persistent asthma (691009788) Moderate persistent asthma, uncomplicated (J45.40) Active confirmed Problem Cough (62551565) Cough (R05) Active confirmed Problem Non-steroidal anti-inflammatory drug adverse reaction (243588524) Adverse effect of other nonsteroidal anti-inflammatory drugs [NSAID], subsequent encounter (T39.395D) Active confirmed Problem Angiotensin-conve rting-enzyme inhibitor adverse reaction (847121987) Adverse effect of angiotensin-conve rting-enzyme inhibitors, subsequent encounter (T46.4X5D) Active confirmed Problem Allergic rhinitis caused by pollen (disorder) (86926173) Allergic rhinitis due to pollen (J30.1) Active confirmed Problem Allergic rhinitis caused by animal hair and dander (502680762062143) Allergic rhinitis due to animal (cat) (dog) hair and dander (J30.81) Active confirmed Problem Essential hypertension (37621300) Essential (primary) hypertension (I10) Active confirmed Vital Signs Oximetry 98 % 02/24/2024 Blood pressure diastolic 88 mm Hg 02/24/2024 Height 63.0 in 02/24/2024 Blood pressure systolic 141 mm Hg 02/24/2024 Weight 187.0 lbs 02/24/2024 BMI 33.12 kg/m2 02/24/2024 Encounters Encounter Location Date Provider Diagnosis [address] [address] 10/24/2023 Provider [facility] Allergic rhinitis due to pollen J30.1 and Moderate persistent asthma, uncomplicated J45.[address] [facility] [address] [address] 09/02/2023 Cristóbal Miller Allergic rhinitis du e to pollen J30.1 ; Allergic rhinitis due to animal (cat) (dog) hair and dander J30.81 ; Other allergic rhinitis J30.89 and Other chronic allergic conjunctivitis H10.[address] [facility] [address] [address] 10/06/2023 Cristóbal Miller Allergic rhinitis du e to pollen J30.1 ; Allergic rhinitis due to animal (cat) (dog) hair and dander J30.81 ; Other allergic rhinitis J30.89 and Other chronic allergic conjunctivitis H10.[address] [address] 10/14/2023 Cristóbal Miller Allergic rhinitis du e to pollen J30.1 ; Allergic rhinitis due to animal (cat) (dog) hair and dander J30.81 ; Other allergic rhinitis J30.89 and Other chronic allergic conjunctivitis H10.[address] [facility] [address] [address] 10/21/2023 Nadia Conte Allergic rhinitis du e to pollen J30.1 ; Allergic rhinitis due to animal (cat) (dog) hair and dander J30.81 ; Other allergic rhinitis J30.89 ; Other chronic allergic conjunctivitis H10.45 ; Moderate persistent asthma, uncomplicated J45.40 ; Cough R05 ; Other pruritus L29.8 ; Tinnitus, unspecified ear H93.19 ; Adverse effect of angiotensin-converting -enzyme inhibitors, subsequent encounter T46.4X5D ; Adverse effect of other nonsteroidal anti-inflammatory drugs [NSAID], subsequent encounter T39.395D and Essential (primary) hypertension I10 [facility] [address] [place] [address] 11/25/2023 Cristóbal Miller Allergic rhinitis du e to pollen J30.1 ; Allergic rhinitis due to animal (cat) (dog) hair and dander J30.81 ; Other allergic rhinitis J30.89 and Other chronic allergic conjunctivitis H10.[address] [address] 12/23/2023 Cristóbal Miller Allergic rhinitis du e to pollen J30.1 ; Allergic rhinitis due to animal (cat) (dog) hair and dander J30.81 ; Other allergic rhinitis J30.89 and Other chronic allergic conjunctivitis H10.[address] [address] 01/20/2024 Cristóbal Miller Allergic rhinitis du e to pollen J30.1 ; Allergic rhinitis due to animal (cat) (dog) hair and dander J30.81 ; Other allergic rhinitis J30.89 and Other chronic allergic conjunctivitis H10.[address] [address] 02/24/2024 Nadia Conte Allergic rhinitis du e to pollen J30.1 ; Allergic rhinitis due to animal (cat) (dog) hair and dander J30.81 ; Other allergic rhinitis J30.89 ; Other chronic allergic conjunctivitis H10.45 ; Moderate persistent asthma, uncomplicated J45.40 ; Cough R05 ; Other pruritus L29.8 ; Tinnitus, unspecified ear H93.19 ; Adverse effect of angiotensin-converting -enzyme inhibitors, subsequent encounter T46.4X5D ; Adverse effect of other nonsteroidal anti-inflammatory drugs [NSAID], subsequent encounter T39.395D and Essential (primary) hypertension I10 [address] [address] 03/22/2024 Cristóbal Miller Allergic rhinitis du e to pollen J30.1 ; Allergic rhinitis due to animal (cat) (dog) hair and dander J30.81 ; Other allergic rhinitis J30.89 and Other chronic allergic conjunctivitis H10.45 [facility] [address] [place] [address] 04/27/2024 Cristóbal Miller Allergic rhinitis du e to pollen J30.1 ; Allergic rhinitis due to animal (cat) (dog) hair and dander J30.81 ; Other allergic rhinitis J30.89 and Other chronic allergic conjunctivitis H10.[address] [address] 05/25/2024 Cristóbal Miller Allergic rhinitis du e to pollen J30.1 ; Allergic rhinitis due to animal (cat) (dog) hair and dander J30.81 ; Other allergic rhinitis J30.89 and Other chronic allergic conjunctivitis H10.[address] [address] 07/14/2023 Deepa Roni [address] [address] 07/27/2023 Deepa Tmaayo [address] [address] 12/07/2023 Deepa Tamayo Moderate persistent asthma, uncomplicated J45.40 Assessments Encounter Date Diagnosis (ICD Code) Assessment Notes Treatment Notes Treatment Clinical Notes Section Notes 10/06/2023 Allergic rhinitis due to pollen (ICD-10 - J30.1) 10/14/2023 Allergic rhinitis due to pollen (ICD-10 - J30.1) 10/21/2023 Allergic rhinitis due to pollen (ICD-10 - J30.1) Glendy clearly suffers from atopic disease based upon our recent skin testing. Accordingly, we have introduced a new, aggressive medication regimen, discussed nasal washes and allergy-specific avoidance measures. We also discussed adjunctive therapies including subcutaneous, specific allergen immunotherapy as relates to the treatment and prevention of atopic disease. Known to have previous large locals with cluster SCIT, since switching to traditional she is tolerating dosing. For local reactions continue topical steroid and ice. Today, she reports occasional LLR, improved sine prior visit. - Continue medications as listed above. Continue to pre-medicate with Zyrtec, Pepcid, and Singulair. - Dosing tolerated today without signs or symptoms of local or systemic reaction. - She will carry AIE for at least 2 hours after today's procedure. - Increase dosing in peak seasons PRN. - Follow-up in 3 months for interval evaluation and management 10/21/2023 Allergic rhinitis due to animal (cat) (dog) hair and dander (ICD-10 - J30.81) Follow allergen avoidance, meds and continue SCIT as an adjunctive treatment to current regimen 10/24/2023 Allergic rhinitis due to pollen (ICD-10 - J30.1) 11/25/2023 Allergic rhinitis due to pollen (ICD-10 - J30.1) 12/07/2023 Moderate persistent asthma, uncomplicated (ICD-10 - J45.40) 12/23/2023 Allergic rhinitis due to pollen (ICD-10 - J30.1) 01/20/2024 Allergic rhinitis due to pollen (ICD-10 - J30.1) 03/22/2024 Allergic rhinitis due to pollen (ICD-10 - J30.1) 04/27/2024 Allergic rhinitis due to pollen (ICD-10 - J30.1) 05/25/2024 Allergic rhinitis due to pollen (ICD-10 - J30.1) 02/24/2024 Allergic rhinitis due to pollen (ICD-10 - J30.1) Glendy clearly suffers from atopic disease based upon our recent skin testing. Accordingly, we have introduced a new, aggressive medication regimen, discussed nasal washes and allergy-specific avoidance measures. We also discussed adjunctive therapies including subcutaneous, specific allergen immunotherapy as relates to the treatment and prevention of atopic disease. Known to have previous large locals with cluster SCIT, since switching to traditional she is tolerating dosing. For local reactions continue topical steroid and ice. Occasional LLR, though does not happen everytime and occurs at random. - Continue medications as listed above. Continue to pre-medicate with Zyrtec, Pepcid, and Singulair. - Dosing tolerated today without signs or symptoms of local or systemic reaction. - She will carry AIE for at least 2 hours after today's procedure. - Increase dosing in peak seasons PRN. - Instructed to notify office for any further LLR. - Follow-up in 3 months for interval evaluation and management 09/02/2023 Allergic rhinitis due to pollen (ICD-10 - J30.1) 02/24/2024 Allergic rhinitis due to animal (cat) (dog) hair and dander (ICD-10 - J30.81) Follow allergen avoidance, meds and continue SCIT as an adjunctive treatment to current regimen 09/02/2023 Allergic rhinitis due to animal (cat) (dog) hair and dander (ICD-10 - J30.81) 02/24/2024 Other allergic rhinitis (ICD-10 - J30.89) Follow allergen avoidance, meds and continue SCIT as an adjunctive treatment to current regimen 05/25/2024 Allergic rhinitis due to animal (cat) (dog) hair and dander (ICD-10 - J30.81) 04/27/2024 Allergic rhinitis due to animal (cat) (dog) hair and dander (ICD-10 - J30.81) 03/22/2024 Allergic rhinitis due to animal (cat) (dog) hair and dander (ICD-10 - J30.81) 01/20/2024 Allergic rhinitis due to animal (cat) (dog) hair and dander (ICD-10 - J30.81) 12/23/2023 Allergic rhinitis due to animal (cat) (dog) hair and dander (ICD-10 - J30.81) 11/25/2023 Allergic rhinitis due to animal (cat) (dog) hair and dander (ICD-10 - J30.81) 10/21/2023 Other allergic rhinitis (ICD-10 - J30.89) Follow allergen avoidance, meds and continue SCIT as an adjunctive treatment to current regimen 10/14/2023 Allergic rhinitis due to animal (cat) (dog) hair and dander (ICD-10 - J30.81) 10/06/2023 Allergic rhinitis due to animal (cat) (dog) hair and dander (ICD-10 - J30.81) 10/06/2023 Other allergic rhinitis (ICD-10 - J30.89) 10/14/2023 Other allergic rhinitis (ICD-10 - J30.89) 10/21/2023 Other chronic allergic conjunctivitis (ICD-10 - H10.45) Given ocular signs and symptoms I encouraged allergy avoidance measures and meds as above. If symptoms persist, consider adding additional medications including intraocular antihistamine/mas t cell stabilizer, PRN and continue SCIT as an adjunctive measure 11/25/2023 Other allergic rhinitis (ICD-10 - J30.89) 12/23/2023 Other allergic rhinitis (ICD-10 - J30.89) 01/20/2024 Other allergic rhinitis (ICD-10 - J30.89) 03/22/2024 Other allergic rhinitis (ICD-10 - J30.89) 04/27/2024 Other allergic rhinitis (ICD-10 - J30.89) 05/25/2024 Other allergic rhinitis (ICD-10 - J30.89) 02/24/2024 Other chronic allergic conjunctivitis (ICD-10 - H10.45) Given ocular signs and symptoms I encouraged allergy avoidance measures and meds as above. If symptoms persist, consider adding additional medications including intraocular antihistamine/mas t cell stabilizer, PRN and continue SCIT as an adjunctive measure 09/02/2023 Other allergic rhinitis (ICD-10 - J30.89) 09/02/2023 Other chronic allergic conjunctivitis (ICD-10 - H10.45) 02/24/2024 Moderate persistent asthma, uncomplicated (ICD-10 - J45.40) Doing well on Breo and Singulair. Consider screen for biologics + PI work-up if she continues to have lung infections. No recurrent infections as of 07/2019. -Last spirometry showed normal FEV1, FVC, and FEV%. -Continue Breo and GREGORY per AAP, denies any recent use of the latter. Refill sent for Breo. -Did receive RSV shot in 03/2023. -Recommend annual influenza vaccine. -Consider pulmonary evaluation given 35-pack year smoking history. Denies prior evaluation or low-res CT scan. Patient will discuss with PCP. -Follow-up in 3 months for E&M 05/25/2024 Other chronic allergic conjunctivitis (ICD-10 - H10.45) 04/27/2024 Other chronic allergic conjunctivitis (ICD-10 - H10.45) 03/22/2024 Other chronic allergic conjunctivitis (ICD-10 - H10.45) 01/20/2024 Other chronic allergic conjunctivitis (ICD-10 - H10.45) 12/23/2023 Other chronic allergic conjunctivitis (ICD-10 - H10.45) 10/24/2023 Moderate persistent asthma, uncomplicated (ICD-10 - J45.40) 11/25/2023 Other chronic allergic conjunctivitis (ICD-10 - H10.45) 10/14/2023 Other chronic allergic conjunctivitis (ICD-10 - H10.45) 10/21/2023 Moderate persistent asthma, uncomplicated (ICD-10 - J45.40) Doing well on Breo and Singulair. Consider screen for biologics + PI work-up if she continues to have lung infections. No recurrent infections as of 07/2019. -Today's spirometry showed normal FEV1, FVC, and FEV%. -Continue Breo and GREGORY per AAP, denies any recent use of the latter. Refill sent for Breo. -Did receive RSV shot in 03/2023. UTD on COVID and Flu -Follow-up in 3 months for E&M 10/06/2023 Other chronic allergic conjunctivitis (ICD-10 - H10.45) 10/21/2023 Cough (ICD-10 - R05) She has had no itching issue since switching from Symbicort to Breo. She has had no interval GREGORY use. She has had no recurrent illness since 07/2019. Rinse out mouth after use. AAP was reviewed and no changes made. Consider pulmonary input and full PFT. Spirometry last visit with normal lung function. Recommend Pneumococcal vaccine 02/24/2024 Cough (ICD-10 - R05) She has had no itching issue since switching from Symbicort to Breo. She has had no interval GREGORY use. She has had no recurrent illness since 07/2019. Rinse out mouth after use. AAP was reviewed and no changes made. Consider pulmonary input and full PFT. Spirometry last visit with normal lung function. Recommend Pneumococcal vaccine 10/21/2023 Other pruritus (ICD-10 - L29.8) No interval episodes since switching from Symbicort to Breo, although very unlikely to have been the cause. She has also still been avoiding Catia-Ogden which she was previously using daily, and has had no issues since. Recommended continued avoidance at this time 02/24/2024 Other pruritus (ICD-10 - L29.8) No interval episodes since switching from Symbicort to Breo, although very unlikely to have been the cause. She has also still been avoiding Catia-Ogden which she was previously using daily, and has had no issues since. Recommended continued avoidance at this time 10/21/2023 Tinnitus, unspecified ear (ICD-10 - H93.19) Glendy reports constant tinnitus and ear muffling. Due to the timing of her symptoms, ENT recommended holding SCIT. Symptoms continue and she has had some improvement with vestibular physical therapy. No difference with steroid. Continue per ENT/Neuro 02/24/2024 Tinnitus, unspecified ear (ICD-10 - H93.19) Glendy reports constant tinnitus and ear muffling. Due to the timing of her symptoms, ENT recommended holding SCIT. Symptoms continue and she has had some improvement with vestibular physical therapy. No difference with steroid. Continue per ENT/Neuro 02/24/2024 Adverse effect of angiotensin-conver ting-enzyme inhibitors, subsequent encounter (ICD-10 - T46.4X5D) Hives in the setting of Lisinopril, continue avoidance. Denies any hives outside of medication. No interval episodes 10/21/2023 Adverse effect of angiotensin-conver ting-enzyme inhibitors, subsequent encounter (ICD-10 - T46.4X5D) Hives in the setting of Lisinopril, continue avoidance. Denies any hives outside of medication. No interval episodes 10/21/2023 Adverse effect of other nonsteroidal anti-inflammatory drugs [NSAID], subsequent encounter (ICD-10 - T39.395D) Redness and flushing with Diclofenac. Continues avoidance without any interval episodes. Tolerates other NSAIDs without issues 02/24/2024 Adverse effect of other nonsteroidal anti-inflammatory drugs [NSAID], subsequent encounter (ICD-10 - T39.395D) Redness and flushing with Diclofenac. Continues avoidance without any interval episodes. Tolerates other NSAIDs without issues 02/24/2024 Essential (primary) hypertension (ICD-10 - I10) BP elevated today without symptoms of urgency or emergency. Continue serial checks and follow-up with PCP 10/21/2023 Essential (primary) hypertension (ICD-10 - I10) BP elevated today without symptoms of urgency or emergency. Continue serial checks and follow-up with PCP 10/21/2023 Other 02/24/2024 Other Plan Of Treatment Next Appt Details Provider Name:Cristóbal Miller , 07/06/2024 04:10:00 PM, [address] [facility], [address], [place], [address], Insurance Providers Payer Name Payer Address Payer Phone Subscriber Number Group Number Insured Name Patient Relationship to Insured Coverage Start Date Coverage End Date [facility] [address] [address] [place] [address] [phone] [id number] Glendy Osborne Self - patient is the insured 2 Medical (General) History Medical History History ICD Code Hyperlipidemia, unspecified E78.5 Essential (primary) hypertension I10 Surgical History Surgery Date(Month/Year) tonsils 10/13/1972 leg mole removal 09/20/1985 appendix 07/05/1990 tubes tied 09/17/2002 tennis elbow 09/24/2008 kidney surgery 10/18/2008 hysterectomy 11/17/2013
--- OUTSIDE RECORDS SUMMARY | 2024-07-04 11:16 | XMS_ITS | Continuity of Care Document ---
Author Organization [facility] Address [address] [place] [address] Phone Care Team Providers Care Photographic Plate Maker Name Role Phone Ashraf OD, Jabier Unavailable Unavailable Procedures Procedure Date Eye Exam & Treatment Refraction Office/outpatient Visit, Est Office/outpatient Visit, Est Office/outpatient Visit, Est Office/outpatient Visit, Est Office/outpatient Visit, Est Advance Directives Directive Yes / No Effective Date File Name No Information Encounters Encounter Description Practice Location Reason(s) For Visit Diagnoses Date Provider Providers Copied on Encounter [facility], [address] [place] [address] [address], [place], [place], [id number], [place] tel:[phone] [facility] No Information 8-201 0 Ashraf OD Jabier. [address] , [address], [place], [address], [place]. tel:[phone] Office/outpat ient Visit, [facility] [place], [address] [place] [address] [address], [place], [place], [id number], [place] tel:[phone] SEC [facility] No Information 1 7 Bianca Schwartz. [address] [facility], [address], [place], [place], [id number], [place]. tel:[phone] Office/outpat ient Visit, [facility] [place], [address], [place], [place], [id number], tel:[phone] [facility] No Information 0-200 7 Magaly Ugarte. [address] [place] [address] [facility], [address], [place], [place], [id number], . tel:[phone] Office/outpat ient Visit, [facility] [place], [address] [place] [address] [address], [place], [place], [id number], tel:[phone] [facility] Kennedy No Information 2-200 7 Magaly Ugarte. [address] [place] [address] [facility], [address], [place], [place], [id number], . tel:[phone] Referring Provider: Jabier Villatoro, [address] [place], [place] [address], [place], [place], [facility]. tel:[phone] Office/outpat ient Visit, [facility] [place], [address] [place] [address] [address], [place], [place], [id number], tel:[phone] [facility] No Information 7-200 7 Ashraf OD Jabier. [address] [place] [address] [address], [place], [place], [facility], . tel:[phone] Office/outpat ient Visit, [facility] [place], [address] [place] [address] [address], [place], [place], [id number], tel:[phone] [facility] No Information 1-200 7 Ashraf OD Jabier. [address] [place], [place] [address], [place], [place], [facility], . tel:[phone] Family History Family Member Type Diagnosis Age At Onset No Information Payers Payer name Insurance type Covered constitution party ID Alex mariedionte(s) VSP [id number] Social History Type Description Quantity Date Captured [...]
== END 2024-07-04 10:50 | disposition home or self-care (01) ==
PROVIDERS: Emergency Provider Nurse Practitioner; PCP Family Medicine
DX: J06.9 Acute upper respiratory infection, unspecified (principal); Z87.891 Personal history of nicotine dependence; I10 Essential (primary) hypertension; E78.5 Hyperlipidemia, unspecified
CPT/HCPCS: 87081; 87880; 99213; G0463

== ENCOUNTER 2024-08-02 19:59 | Emergency (ER) | payer OTHER, SELFPAY ==
--- NOTE | ~2024-08-02 | XR_ITS ---
EXAMINATION: XR chest 2V Exam Date/Time: 08/02/2024 20:46 CDT HISTORY: CP Comparison: 06/07/2018. RESULT: Lines, tubes, and devices: None. Lungs and pleura: Clear. Cardiomediastinal silhouette: Stable. Other: No acute osseous or upper abdominal finding. A closed safety pin is incidentally noted over t he anterior midline chest soft tissues. IMPRESSION: No acute cardiopulmonary process. Reviewed, dictated and finalized at location K.
--- OUTSIDE RECORDS SUMMARY | 2024-08-02 20:01 | XMS_ITS | Clinical Summary ---
Author Organization [facility] Address [address] [facility] [place] [address] Phone Care Team Providers Care Pocket Setter Lockstitch Name Role Phone Josef Ledbetter MD Primary Care Provider [phone] Social History Tobacco Use Types Packs/Day Years Used Date Smoking Tobacco: Never Assessed Comments Unknown Sex and Gender Information Value Date Recorded Sex Assigned at Not on file Legal Sex Female 2:05 PM CDT Gender Identity Not on file Sexual Orientation Not on file Plan of Treatment Health Maintenance Due Date Last Done Comments DTAP/TDAP/TD VACCINES (1 - Tdap) 1979 PAP SMEAR 1981 CERVICAL CANCER SCREENING 1990 HPV/Cotest 1990 PAP SMEAR 1990 BREAST CANCER SCREENING 2000 COLORECTAL SCREENING 2005 Colorectal Cancer Screening 2005 FIT-DNA Q 3 years 2005 FIT/FOBT Q 1 year 2005 Flex Sig/CT Colonography Q 5 years 2005 ZOSTER VACCINE (1 of 2) 2010 INFLUENZA VACCINE (#1) 2023 RSV VACCINE (60+ or ) (1 - 1-dose 75+ series) 2035 Insurance Care Teams Pocket Setter Lockstitch Relationship Specialty Start Date End Date Josef Ledbetter MD PCP - General Internal Medicine 07/27/15
--- OUTSIDE RECORDS SUMMARY | 2024-08-02 20:01 | XMS_ITS | Continuity of Care Document ---
Author Organization [facility] Address [address] [place] [address] Phone Care Team Providers Care Paper Making Machine Operator Name Role Phone Ashraf OD, Jabier Unavailable Unavailable Procedures Procedure Date Eye Exam & Treatment Refraction Office/outpatient Visit, Est Office/outpatient Visit, Est Office/outpatient Visit, Est Office/outpatient Visit, Est Office/outpatient Visit, Est Advance Directives Directive Yes / No Effective Date File Name No Information Encounters Encounter Description Practice Location Reason(s) For Visit Diagnoses Date Provider Providers Copied on Encounter [facility], [address] [place] [address] [address], [place], [place], [address], [place] tel:[phone] SEC [facility] No Information 8-201 0 Ashraf OD Jabier. [address] , [address], [place], [address], [place]. tel:[phone] Office/outpat ient Visit, [facility], [address] [place] [address] [address], [place], [place], [address], [place] tel:[phone] SEC Band[facility] Kennedy No Information 1200 7 Bianca Schwartz. [address] [facility], [address], [place], [place], [address], [place]. tel:[phone] Office/outpat ient Visit, [facility], [address], [place], [place], [address], tel:[phone] SEC [facility] Kennedy No Information 0-200 7 Magaly Ugarte. [address] [place] [address] [facility], [address], [place], [place], [address], . tel:[phone] Office/outpat ient Visit, [facility], [address] [place] [address] [address], [place], [place], [address], tel:[phone] SEC [facility] Kennedy No Information 2-200 7 Magaly Ugarte. [address] [place] [address] [employer] [facility], [address], [place], [place], [address], . tel:[phone] Referring Provider: Jabier Villatoro, [address] [place], [place] [address], [place], [place], [facility]. tel:[phone] Office/outpat ient Visit, [facility], [address] [place] [address] [address], [place], [place], [address], tel:[phone] SEC [facility] No Information 7-200 7 Ashraf OD Jabier. [address] [place] [address], [place], [place], [facility], . tel:[phone] Office/outpat ient Visit, [facility], [address] [place] [address] [address], [place], [place], [address], tel:[phone] SEC [facility] No Information 1-200 7 Ashraf OD Jabier. [address] [place], [place] [address], [place], [place], [facility], . tel:[phone] Family History Family Member Type Diagnosis Age At Onset No Information Payers Payer name Insurance type Covered green party ID Alex mariedionte(s) VSP CI [id number] Social History Type Description Quantity Date Captured [...]
--- OUTSIDE RECORDS SUMMARY | 2024-08-02 20:01 | XMS_ITS | Referral Summary ---
Author Organization [facility] Address [address] [place] [address] Care Team Providers Care Wick And Base Assembler Name Role Phone Omid Beatty MD Primary Care Provider [phone] Allergies Active Allergy Reactions Criticality Noted Date [...] on file Legal Sex Female 12:05 PM DRUPAL DEVELOPER Gender Identity Not on file Sexual Orientation [...] Read Routine (OP Routine) 04/14/2024 3:47 PM DRUPAL DEVELOPER Encounter for screening for lung cancer COLONOSCOPY REPORT 08/18/2012 from Last 3 Months or Most Recently Relevant to Health Maintenance Results * CT Lung Cancer Screening (04/14/2024 3:47 PM DRUPAL DEVELOPER) Anatomical Region Laterality Modality Chest N/A Computed Tomogra phy 04/20/2024 7:06 AM DRUPAL DEVELOPER Narrative 04/20/2024 7:11 AM DRUPAL DEVELOPER EXAM DESCRIPTION: CT LUNG CANCER SCREENING REASON [...] Carin Benson M.D. TW: JESSICA Report ID: [id number] Reading Location: [id number] Procedure Note Carin Benson MD - 04/20/2024 [...] Carin Benson M.D. TW: JESSICA Report ID: [id number] Reading Location: [id number] Agnieszka Garnica NP IMG CT PROCEDURES Final Resu lt * COLONOSCOPY REPORT (08/18/2012) Anatomical Region Laterality Modality Other Narrative 08/18/2012 Ordered by an unspecified provider. us Historical Provider GI PROCEDURE ORDERABLES F inal Result from Last 3 Months or Most Recently Relevant to Health Maintenance Insurance [facility] Care Teams Wick And Base Assembler Relationship Specialty Start Date End Date Omid Beatty MD [address] [place] [address] PCP - General Family Medicine 12/16/19
--- OUTSIDE RECORDS SUMMARY | 2024-08-02 20:01 | XMS_ITS ---
Author Organization [facility] Address [address] [place] [address] Care Team Providers Care Land Developer Name Role Phone Duff Josef Primary Care Provider UnavailDeepa Jenkins Unavailable [phone] Omid Beatty Unavailable Unavailable Cristóbal Miller Unavailable [phone] REASON FOR VISIT SCIT - Traditional Schedule Allergy immunotherapy Medications Medication SIG (Take, Route, Frequency, Duration) Notes Start Date End Date Status BREO ELLIPTA 100 mcg-25 mcg/inh 1 puff(s) inhaled once a day for 30 days Not-Taking Breo Ellipta 100-25 MCG/ACT 1 puff Inhalation Once a day for 90 days Active EPINEPHRINE 0.3 mg as directed intramuscularly once for 30 days Not-Taking VALSARTAN 80 mg 1 tab(s) orally once a day for 30 day(s) Not-Taking ATORVASTATIN 20 mg 1 tab(s) orally once a day for 30 day(s) Not-Taking Albuterol Sulfate HFA 108 (90 Base) MCG/ACT 1 puff as needed Inhalation every 4 hrs for 30 days 12/07/2023 Active EPINEPHrine 0.3 MG/0.3ML as directed Injection as needed for 30 days 12/07/2023 Active Montelukast Sodium 10 MG 1 tab(s) orally once a day Active EPINEPHrine 0.3 MG DIRECTED INTRAMUSCULARLY ONCE for 30 DAYS *Please review and pick correct strength-formula tion from [employer] options. If intended option is not shown, discontinue and re-order from Quick Search* Active Valsartan 80 MG 1 tab(s) orally once a day for 30 day(s) Active SLOW MAGNESIUM CHLORIDE WITH CALCIUM 118 MG-71 MG 2 TAB(S) ORALLY ONCE A DAY *Please review for potential replacement for e-prescription and drug interaction check* Active Famotidine 40 MG 1 tab(s) orally once a day (at bedtime) Active Auvi-Q 0.3 MG/0.3ML as directed intramuscularly once for 30 day(s) Active Nasacort Allergy 24HR 55 MCG/ACT 2 spray(s) intranasally once a day for 30 day(s) Active Atorvastatin Calcium 20 MG 1 tab(s) orally once a day for 30 day(s) Active ZyrTEC Allergy 10 MG 1 tab(s) [...] orally once a day (at bedtime) Active NASACORT ALLERGY 24HR 55 mcg/inh 2 spray(s) intranasally once a day for 30 day(s) Active ZYRTEC 10 mg 1 tab(s) orally once a day Active NASAL WASHES N/A as directed intranasally as needed for 30 Active AUVI -Q 0.3 mg as directed intramuscularly once for 30 day(s) Active Encounters Encounter Location Date Provider Diagnosis [facility] [address] [facility] [address] [facility] [address] [place] [address] 07/20/2024 Cristóbal Miller Allergic rhinitis du e to pollen J30.1 ; Allergic rhinitis due to animal (cat) (dog) hair and dander J30.81 ; Other allergic rhinitis J30.89 and Other chronic allergic conjunctivitis H10.45 Assessments Encounter Date Diagnosis (ICD Code) Assessment Notes Treatment Notes Treatment Clinical Notes Section Notes 07/20/2024 Allergic rhinitis due to pollen (ICD-10 - J30.1) 07/20/2024 Allergic rhinitis due to animal (cat) (dog) hair and dander (ICD-10 - J30.81) 07/20/2024 Other allergic rhinitis (ICD-10 - J30.89) 07/20/2024 Other chronic allergic conjunctivitis (ICD-10 - H10.45) Plan Of Treatment Next Appt Details Follow Up: 1 Week, Reason: Provider Name:Cristóbal Miller , 08/04/2024 04:00:00 PM, [address] [facility] [employer], [address], [place], [address], Provider Name:Cristóbal Miller , 08/17/2024 04:10:00 PM, [address] [facility], [address], [place], [address], Progress Notes * DONIYajairaGlendy CDOB:[birth year] (64 yo F)Acc No.[id number]:07/20/2024 SCIT-Aeroallergen Patient: Glendy BOSS Provider: Sariah Miller MD :1960 A ge:64 Y S ex:Female Date:07/20/2024 Address:[address] [place], [place] [id number] Pcp:Josef Duff Subjective: * Chief Complaints: * [...] *Please review and pick correct strength-formulation from Am[employer] options. If intended option is not shown, [...] *Please review and pick correct strength-formulation from [employer] options. If intended option is not shown, [...] Information: * Visit Code: * Procedure Codes: 82315 IMMUNOTHERAPY INJECTIONS. * Sign off status: Completed true * Provider: Sariah Miller MD Date: 0 07/20/2024 Generated for Nora cool/Shai/Val on: 0 08/02/2024 08:01 PM CDT History and Physical Notes * HPI (History [...]
--- OUTSIDE RECORDS SUMMARY | 2024-08-02 20:01 | XMS_ITS | Clinical Summary ---
Author Organization [facility] [employer] Address [address] [facility] [place] [address] Care Team Providers Care Hardboard Factory Worker Name Role Phone Josef Ledbetter MD Primary Care Provider [phone] Source Comments [facility],non-owned Affiliates and Associated Physician Practices is amultiple site organization consisting of ambulatory clinics and hospital sitesin [place], [place], [place] and [place]. This disclosure is being madepursuant to the Care Everywhere program and may not contain all information available regarding this patient. Last updated 18.[facility] [employer] Allergies Active Allergy Reactions Criticality Noted Date [...] 80.7 kg (178 lb) 05/23/2015 10:14 AM BLUE LINE OPERATOR Height 160 cm (5' 3 ) 05/23/2015 10:14 AM BLUE LINE OPERATOR Body Mass Index 31.53 05/23/2015 10:14 AM BLUE LINE OPERATOR Plan of Treatment Health Maintenance Due Date [...] to complete this topic MENINGOCOCCAL (Group B) VACC INE SHARED DECISION-MAKING Aged Out No longer eligibl e based on patient's age to complete this topic MENINGOCOCCAL GROUPS A/C/Y/W VACCINE Aged Out No longer eligible b ased on patient's age to complete this topic PNEUMOCOCCAL VACCINE Aged Out No long er eligible based on patient's age to complete this topic Care Teams Hardboard Factory Worker Relationship Specialty Start Date End Date Josef Ledbetter MD PCP - General Internal Medicine 03/30/15
--- OUTSIDE RECORDS SUMMARY | 2024-08-02 20:01 | XMS_ITS | Clinical Summary ---
Author Organization [facility] Medical Office Building [facility] Address [address] [place] [address] Care Team Providers Care Molding Engineer Name Role Phone Omid Beatty MD Primary Care Provider [phone] Allergies Active Allergy Reactions Criticality Noted Date [...] 07/28/2011 Hypercholesterolemia 03/17/2011 Hydronephrosis 10/24/2009 Anxiety 10/24/2009 Surgical History Surgery Date Site/Laterality Comments [place] APPENDECTOMY Appendectomy - (Added by TW Conv) [place] LAPAROSCOPY SURG PYELOPLASTY Kidney Surgery Laparoscopic Pyeloplasty - (Added by TW Conv) ELBOW SURGERY Elbow Surgery - (Added by TW Conv) [place] LIG/TRNSXJ FLP TUBE ABDL/ VAG APPR UNI/BI Tubal Ligation - (Added by TW Conv) [place] TONSILLECTOMY PRIMARY/SECONDARY <AGE 12 Tonsillectomy - (Added [...] on file Legal Sex Female 12:05 PM LICENSE REGISTRATION EXAMINER Gender Identity Not on file Sexual Orientation [...] 2024 3, 05/11/2020, 02/10/2020, Additional history exists Lung Cancer Screening 10/11/2024 04/14/2024 Colon Cancer Screening-CT Colonography Discontinued 08/18/2012 Colon Cancer Screening-DNA Stool Discontinued 08/18/2012 Colon Cancer Screening-FIT Discontinued 08/18/2012 Colon Cancer Screening-Sigmoidoscopy Discontinued 08/18/2012 Pneumococcal vaccine <65 Aged Out No longer eligible based on patient's age to complete this topic Procedures Procedure Name Priority Date/Time Associated Diagnosis Comments CT LUNG CANCER SCREENING Schedule Routine, Read Routine (OP Routine) 04/14/2024 3:47 PM LICENSE REGISTRATION EXAMINER Encounter for screening for lung cancer COLONOSCOPY REPORT 08/18/2012 from Last 3 Months or Most Recently Relevant to Health Maintenance Results * CT Lung Cancer Screening (04/14/2024 3:47 PM LICENSE REGISTRATION EXAMINER) Anatomical Region Laterality Modality Chest N/A Computed Tomogra phy 04/20/2024 7:06 AM LICENSE REGISTRATION EXAMINER Narrative 04/20/2024 7:11 AM LICENSE REGISTRATION EXAMINER EXAM DESCRIPTION: CT LUNG CANCER SCREENING REASON [...] Carin Benson M.D. TW: JESSICA Report ID: [id number] Reading Location: [id number] Procedure Note Carin Benson MD - 04/20/2024 [...] Carin Benson M.D. TW: JESSICA Report ID: [id number] Reading Location: [id number] Agnieszka Garnica NP IMG CT PROCEDURES Final Resu lt * COLONOSCOPY REPORT (08/18/2012) Anatomical Region Laterality Modality Other Narrative 08/18/2012 Ordered by an unspecified provider. Historical Provider GI PROCEDURE ORDERABLES F inal Result from Last 3 Months or Most Recently Relevant to Health Maintenance Insurance [facility] PL[facility]/PPO Address: [address] [place] [address] [facility]/PPO Address: [address] [place] [address] Care Teams Molding Engineer Relationship Specialty Start Date End Date Omid Beatty MD [address] [place] [address] PCP - General Family Medicine 12/16/19
--- OUTSIDE RECORDS SUMMARY | 2024-08-02 20:02 | XMS_ITS | CONTINUITY OF CARE DOCUMENT ---
Author Name robert jones Address Unknown Organization [facility] Address [address] [facility] [address] [place] [address] Phone [phone] Care Team Providers Care Child Protection Specialist Name Role Phone ROSEMARY FORMAN MD Unavailable [phone] ROSEMARY FORMAN MD Unavailable [phone] INSURANCE PROVIDERS Payer name Policy type / Coverage type [place] red democrat ID [id number] Other [id number]
--- OUTSIDE RECORDS SUMMARY | 2024-08-02 20:02 | XMS_ITS ---
Author Organization Health system Address [address] [place] [address] Care Team Providers Care Stringing Machine Operator Name Role Phone Duff Josef Primary Care Provider UnavailDeepa Jenkins Unavailable [phone] Omid Beatty Unavailable Unavailable Cristóbal Miller Unavailable [phone] REASON FOR VISIT SCIT - Traditional Schedule Allergy immunotherapy Medications Medication SIG (Take, Route, Frequency, Duration) Notes Start Date End Date Status ATORVASTATIN 20 mg 1 tab(s) orally once [...] 4 hrs for 30 days 12/07/2023 Active Atorvastatin Calcium 20 MG 1 tab(s) orally once a day for 30 day(s) Active EPINEPHrine 0.3 MG DIRECTED INTRAMUSCULARLY ONCE for 30 DAYS *Please review and pick correct strength-formula tion from [employer] (Group)an options. If intended option is not shown, discontinue and re-order from Quick Search* Active Valsartan 80 MG 1 tab(s) orally once a day for 30 day(s) Active EPINEPHrine 0.3 MG/0.3ML as directed Injection as needed for 30 days 12/07/2023 Active Montelukast Sodium 10 MG 1 tab(s) orally once a day Active Nasacort Allergy 24HR 55 MCG/ACT 2 spray(s) intranasally once a day for 30 day(s) Active ZyrTEC Allergy 10 MG 1 tab(s) orally once a day Active Famotidine 40 MG 1 tab(s) orally once a day (at bedtime) Active Auvi-Q 0.3 MG/0.3ML as directed intramuscularly once for 30 day(s) Active SLOW MAGNESIUM CHLORIDE WITH CALCIUM 118 MG-71 MG 2 TAB(S) ORALLY ONCE A DAY *Please review for potential replacement for e-prescription and drug interaction check* Active NASAL WASHES N/A as directed intranasally as needed for 30 Active SIT (TRADITIONAL) variable per schedule SC per schedule for to be determined Active FAMOTIDINE 40 mg 1 tab(s) orally once a day (at bedtime) Active MONTELUKAST SODIUM 10 mg 1 tab(s) orally once a day Active PROAIR HFA 90 mcg/inh 2 puff(s) inhaled Q4-6 hours, PRN and per the asthma action plan for 30 day(s) Active Breo Ellipta 100-25 MCG/ACT 1 puff Inhalation Once a day for 90 days Active NASACORT ALLERGY 24HR 55 mcg/inh 2 spray(s) intranasally once a day for 30 day(s) Active ZYRTEC 10 mg 1 tab(s) orally once a day Active AUVI -Q 0.3 mg as directed intramuscularly once for 30 day(s) Active Encounters Encounter Location Date Provider Diagnosis [facility] [address] [place] [address] 07/27/2024 Cristóbal Miller Allergic rhinitis du e to pollen J30.1 ; Allergic rhinitis due to animal (cat) (dog) hair and dander J30.81 ; Other allergic rhinitis J30.89 and Other chronic allergic conjunctivitis H10.45 Assessments Encounter Date Diagnosis (ICD Code) Assessment Notes Treatment Notes Treatment Clinical Notes Section Notes 07/27/2024 Allergic rhinitis due to pollen (ICD-10 - J30.1) 07/27/2024 Allergic rhinitis due to animal (cat) (dog) hair and dander (ICD-10 - J30.81) 07/27/2024 Other allergic rhinitis (ICD-10 - J30.89) 07/27/2024 Other chronic allergic conjunctivitis (ICD-10 - H10.45) Plan Of Treatment Next Appt Details Follow Up: 1 Week, Reason: Provider Name:Cristóbal Miller , 08/04/2024 04:00:00 PM, [address] [facility] [employer], [address], [place], [address], Provider Name:Cristóbal Miller , 08/17/2024 04:10:00 PM, [address] [facility], [address], [place], [address], Progress Notes * DONIYajairaGlendy CDOB:[birth year] (64 yo F)Acc No.[id number]:07/27/2024 SCIT-Aeroallergen Patient: Glendy BOSS Provider: Sariah Miller MD :1960 A ge:64 Y S ex:Female Date:07/27/2024 Address:[address] [place], [place] [address] Pcp:Josef Duff Subjective: * Chief Complaints: * [...] *Please review and pick correct strength-formulation from Hexaditespan options. If intended option is not shown, [...] *Please review and pick correct strength-formulation from [employer]an options. If intended option is not shown, [...] Information: * Visit Code: * Procedure Codes: 79860 IMMUNOTHERAPY INJECTIONS. * Sign off status: Completed true * Provider: Sariah Miller MD Date: 0 07/27/2024 Generated for Nora cool/Shai/Val on: 0 08/02/2024 [...]
--- OUTSIDE RECORDS SUMMARY | 2024-08-02 20:02 | XMS_ITS ---
Author Organization [facility] Address [address] [place] [address] Care Team Providers Care Director Housekeeping Name Role Phone Josef Duff Primary Care Provider Deepa Almazan [phone] Omid Beatty Unavailable Unavailable REASON FOR VISIT Needs call back from office Encounters Encounter Location Date Provider Diagnosis [facility] [address] [place] [address] 07/21/2024 Deepa Tamayo Plan Of Treatment Next Appt Details Provider Name:Cristóbal HLucretia Miller , 08/04/2024 04:00:00 PM, [address] [facility], [address], [address], Provider Name:Cristóbal HLucretia Miller , 08/17/2024 04:10:00 PM, [address] [facility], [address], [place], [address], Progress Notes * Glendy OSBORNE CDOB:[birth year] (64 yo F)Acc No.[id number]:07/21/2024 Patient: Justyna ZAYASAMY Glendy Chapman :1960 A ge:64 Y S ex:Female Address:[address] [place], [address] * true * Date: Generated for Printi ng/Faxing/eTransmitting on: 0 08/02/2024 08:01 PM CDT
[2024-08-02 20:05] VITALS: BP 149/90; PULSE 70; RESP 20; TEMP 36.4; O2SAT 98
[2024-08-02 20:57] LABS: Basophils Absolute Auto 0.1 K/mm3 (0.0-0.1); Basophils Percent Auto 0.7 % (0.2-1.2); Eosinophils Absolute Auto 0.2 K/mm3 (0-0.3); Eosinophils Percent Auto 1.7 % (0-4.4); Hematocrit 41.2 % (37.0-47.0); Hemoglobin 13.7 g/dL (12.0-15.0); Immature Granulocyte Absolute 0.03 K/mm3 (0.00-0.031); Immature Granulocyte Percent A 0.3 % (0-0.5); Lymphocytes Absolute Auto 1.53 K/mm3 (0.9-3.2); Lymphocytes Percent Auto 15.3 % (18.3-44.2); Mean Corpuscular HGB Conc 33.3 g/dl (32-36); Mean Corpuscular Volume 96.3 fl (80-100); Mean Platelet Volume 10.1 fl (7.4-10.4); Monocytes Absolute Auto 0.8 K/mm3 (0.1-0.6); Monocytes Percent Auto 8.3 % (2.6-8.5); Neutrophils Absolute Auto 7.3 K/mm3 (1.3-6.7); Neutrophils Percent Auto 73.7 % (45.5-73.1); Platelet Count Result 302 k/mm3 (150-375); Red Blood Count 4.28 M/mm3 (4.2-5.4); Red Cell Distribution Width 12.7 % (11.5-14.5)
[2024-08-02 21:07] LABS: INR 0.9
[2024-08-02 21:08] LABS: Partial Thromboplastin Time 28.5 Seconds (22.3-36.8)
[2024-08-02 21:19] LABS: Alanine Aminotransferase 21 U/L (6-35); Albumin Level 4.2 g/dL (3.5-5.1); Alkaline Phosphatase 74 U/L (38-126); Anion Gap 9 mmol/L (4-12); Aspartate Amino Transferase 25 U/L (14-36); Bilirubin,Total 0.4 mg/dL (0.2-1.3); Blood Urea Nitrogen 20 mg/dL (7-17); Calcium 9.4 mg/dL (8.4-10.2); Carbon Dioxide 25 mmol/L (22-30); Chloride 106 mmol/L (98-107); Estimated CRCL calculation 50 ml/min; Estimated Glomerular Filt Rate 55; Glucose 128 mg/dL (65-110); Lipase 162 U/L (23-300); Potassium 3.8 mmol/L (3.4-5.0); Sodium 140 mmol/L (137-145); Troponin I < 0.012 ng/mL (0.000-0.034)
[2024-08-02 22:26] VITALS: BP 155/82; PULSE 55; RESP 16; O2SAT 98
[2024-08-02] MEDS: ASPIRIN 81 MG CHEWABLE TABLET 324 MG PO (22:31)
--- OUTSIDE RECORDS SUMMARY | 2024-08-02 22:39 | XMS_ITS | Referral Summary ---
Author Organization [facility] Address [address] [place] [address] Care Team Providers Care Edger Machine Setter Name Role Phone Omid Beatty MD Primary Care Provider [phone] Allergies Active Allergy Reactions Criticality Noted Date [...] on file Legal Sex Female 12:05 PM PHYSICAL INTEGRATION PRACTITIONER Gender Identity Not on file Sexual Orientation [...] Read Routine (OP Routine) 04/14/2024 3:47 PM PHYSICAL INTEGRATION PRACTITIONER Encounter for screening for lung cancer COLONOSCOPY REPORT 08/18/2012 from Last 3 Months or Most Recently Relevant to Health Maintenance Results * CT Lung Cancer Screening (04/14/2024 3:47 PM PHYSICAL INTEGRATION PRACTITIONER) Anatomical Region Laterality Modality Chest N/A Computed Tomogra phy 04/20/2024 7:06 AM PHYSICAL INTEGRATION PRACTITIONER Narrative 04/20/2024 7:11 AM PHYSICAL INTEGRATION PRACTITIONER EXAM DESCRIPTION: CT LUNG CANCER SCREENING REASON [...] Carin Benson M.D. TW: JESSICA Report ID: [id number] Reading Location: [id number] Procedure Note Carin Benson MD - 04/20/2024 [...] Carin Benson M.D. TW: JESSICA Report ID: [id number] Reading Location: [id number] Agnieszka Garnica NP IMG CT PROCEDURES Final Resu lt * COLONOSCOPY REPORT (08/18/2012) Anatomical Region Laterality Modality Other Narrative 08/18/2012 Ordered by an unspecified provider. us Historical Provider GI PROCEDURE ORDERABLES F inal Result from Last 3 Months or Most Recently Relevant to Health Maintenance Insurance [facility] PLUS [facility] CHO[facility] PLUS Care Teams Edger Machine Setter Relationship Specialty Start Date End Date Omid Beatty MD [address] [place] [address] PCP - General Family Medicine 12/16/19
--- OUTSIDE RECORDS SUMMARY | 2024-08-02 22:39 | XMS_ITS | Clinical Summary ---
Author Organization [facility] Address [address] [place] [address] Care Team Providers Care Cover Stripper Name Role Phone Omid Beatty MD Primary Care Provider [phone] Allergies Active Allergy Reactions Criticality Noted Date [...] 10/24/2009 Surgical History Surgery Date Site/Laterality Comments ND APPENDECTOMY Appendectomy - (Added by TW Conv) ND LAPAROSCOPY SURG PYELOPLASTY Kidney Surgery Laparoscopic Pyeloplasty - (Added by TW Conv) ELBOW SURGERY Elbow Surgery - (Added by TW Conv) ND LIG/TRNSXJ FLP TUBE ABDL/ VAG APPR UNI/BI Tubal Ligation - (Added by TW Conv) ND TONSILLECTOMY PRIMARY/SECONDARY <AGE 12 Tonsillectomy - (Added [...] on file Legal Sex Female 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 TW: JESSICA Report ID: [id number] Reading Location: [id number] Procedure Note Carin Benson MD - 04/20/2024 [...] Carin Benson M.D. TW: JESSICA Report ID: [id number] Reading Location: [id number] Agnieszka Garnica NP IMG CT PROCEDURES Final Resu lt * COLONOSCOPY REPORT (08/18/2012) Anatomical Region Laterality Modality Other Narrative 08/18/2012 Ordered by an unspecified provider. Historical Provider GI PROCEDURE ORDERABLES F inal Result from Last 3 Months or Most Recently Relevant to Health Maintenance Insurance [facility] CHOICE PLUS [facility] CHOICE PLUS Care Teams Cover Stripper Relationship Specialty Start Date End Date Omid Beatty MD [address] [place] [address] PCP - General Family Medicine 12/16/19
--- OUTSIDE RECORDS SUMMARY | 2024-08-02 22:39 | XMS_ITS | Patient Health Record ---
Author Organization [facility] Address [address] [place] [address] Care Team Providers Care Desk Representative Name Role Phone Duff Josef Primary Care Provider UnavailDeepa Jenkins Unavailable [phone] Omid Beatty Unavailable Unavailable Cristóbal Miller Unavailable [phone] Nadia Conte Unavailable [phone] [facility], Provider Unavailable Unavailab le Allergies Allergen (clinical drug ingredient) Drug/Non Drug Allergy documented on EMR Reaction Allergy Type Onset Date Status Diclofenac hives Drug Allergy Active lisinopril Lisinopril hives Drug Allergy Activ e [...] Duration) Notes Start Date End Date Status Nasacort Allergy 24HR 55 MCG/ACT 2 spray(s) intranasally once a day for 30 day(s) Active ATORVASTATIN 20 mg 1 tab(s) orally once a day for 30 day(s) Not-Taking ZyrTEC Allergy 10 MG 1 tab(s) orally once a day Active BREO ELLIPTA 100 mcg-25 mcg/inh 1 puff(s) inhaled once a day for 30 days Not-Taking Famotidine 40 MG 1 tab(s) orally once a day (at bedtime) Active EPINEPHRINE 0.3 mg as directed intramuscularly once for 30 days Not-Taking Auvi-Q 0.3 MG/0.3ML as directed intramuscularly once for 30 day(s) Active VALSARTAN 80 mg 1 tab(s) orally once a day for 30 day(s) Not-Taking Atorvastatin Calcium 20 MG 1 tab(s) orally once a day for 30 day(s) Active SLOW MAGNESIUM CHLORIDE WITH CALCIUM 118 MG-71 MG 2 TAB(S) ORALLY ONCE A DAY *Please review for potential replacement for e-prescription and drug interaction check* Active Breo Ellipta 100-25 MCG/ACT 1 puff Inhalation Once a day for 90 days Active EPINEPHrine 0.3 MG DIRECTED INTRAMUSCULARLY ONCE for 30 DAYS *Please review and pick correct strength-formula tion from Pertino options. If intended option is not shown, [...] directed intramuscularly once for 30 day(s) Active SIT (TRADITIONAL) variable per schedule SC per schedule for to be determined Active FAMOTIDINE 40 mg 1 tab(s) orally once a day (at bedtime) Active MONTELUKAST SODIUM 10 mg 1 tab(s) orally once a day Active Albuterol Sulfate HFA 108 (90 Base) MCG/ACT 1 puff as needed Inhalation every 4 hrs for 30 days 12/07/2023 Active PROAIR HFA 90 mcg/inh 2 puff(s) inhaled Q4-6 hours, PRN and per the asthma action plan for 30 day(s) Active Immunizations Vaccine Route Administration Date Status [...] Status Risk Notes Problem Chronic allergic conjunctivitis (88073690) Other chronic allergic conjunctivitis (H10.45) Active confirmed Problem Tinnitus (55819091) Tinnitus, unspecified ear (H93.19) Active confirmed Problem Allergic rhinitis (44010853) Other allergic rhinitis (J30.89) Active confirmed Problem Uncomplicated moderate persistent asthma (323130080) Moderate persistent asthma, uncomplicated (J45.40) Active confirmed Problem Cough (62577930) Cough (R05) Active confirmed Problem Non-steroidal anti-inflammatory drug adverse reaction (221306941) Adverse effect of other nonsteroidal anti-inflammatory drugs [NSAID], subsequent encounter (T39.395D) Active confirmed Problem Angiotensin-conve rting-enzyme inhibitor adverse reaction (359057140) Adverse effect of angiotensin-conve rting-enzyme inhibitors, subsequent encounter (T46.4X5D) Active confirmed Problem Allergic rhinitis caused by pollen (disorder) (22822799) Allergic rhinitis due to pollen (J30.1) Active confirmed Problem Allergic rhinitis caused by animal hair and dander (833175870206648) Allergic rhinitis due to animal (cat) (dog) hair and dander (J30.81) Active confirmed Problem Essential hypertension (08379378) Essential (primary) hypertension (I10) Active confirmed Vital Signs Oximetry 98 % 02/24/2024 Blood pressure diastolic 88 mm Hg 02/24/2024 Height 63.0 in 02/24/2024 Blood pressure systolic 141 mm Hg 02/24/2024 Weight 187.0 lbs 02/24/2024 BMI 33.12 kg/m2 02/24/2024 Encounters Encounter Location Date Provider Diagnosis [address] [address] 10/24/2023 Provider [facility] Allergic rhinitis due to pollen J30.1 and Moderate persistent asthma, uncomplicated J45.[address] [facility] [address] 09/02/2023 Cristóbal Miller Allergic rhinitis du e to pollen J30.1 ; Allergic rhinitis due to animal (cat) (dog) hair and dander J30.81 ; Other allergic rhinitis J30.89 and Other chronic allergic conjunctivitis H10.[address] [facility] [address] [address] 10/06/2023 Cristóbal Miller Allergic rhinitis du e to pollen J30.1 ; Allergic rhinitis due to animal (cat) (dog) hair and dander J30.81 ; Other allergic rhinitis J30.89 and Other chronic allergic conjunctivitis H10.[address] [address] 10/14/2023 Cristóbal Miller Allergic rhinitis du e to pollen J30.1 ; Allergic rhinitis due to animal (cat) (dog) hair and dander J30.81 ; Other allergic rhinitis J30.89 and Other chronic allergic conjunctivitis H10.[address] [address] 10/21/2023 Nadia Conte Allergic rhinitis du e [...] encounter T39.395D and Essential (primary) hypertension I10 [facility] [address] [place] [address] 11/25/2023 Cristóbal Miller Allergic rhinitis du e to pollen J30.1 ; Allergic rhinitis due to animal (cat) (dog) hair and dander J30.81 ; Other allergic rhinitis J30.89 and Other chronic allergic conjunctivitis H10.[address] [address] 12/23/2023 Cristóbal Miller Allergic rhinitis du e to pollen J30.1 ; Allergic rhinitis due to animal (cat) (dog) hair and dander J30.81 ; Other allergic rhinitis J30.89 and Other chronic allergic conjunctivitis H10.[address] [address] 01/20/2024 Cristóbal Miller Allergic rhinitis du e to pollen J30.1 ; Allergic rhinitis due to animal (cat) (dog) hair and dander J30.81 ; Other allergic rhinitis J30.89 and Other chronic allergic conjunctivitis H10.[address] [address] 02/24/2024 Nadia Conte Allergic rhinitis du e [...] encounter T39.395D and Essential (primary) hypertension I10 [address] [address] 03/22/2024 Cristóbal Miller Allergic rhinitis du e to pollen J30.1 ; Allergic rhinitis due to animal (cat) (dog) hair and dander J30.81 ; Other allergic rhinitis J30.89 and Other chronic allergic conjunctivitis H10.[address] [facility] [address] [address] 04/27/2024 Cristóbal Miller Allergic rhinitis du e to pollen J30.1 ; Allergic rhinitis due to animal (cat) (dog) hair and dander J30.81 ; Other allergic rhinitis J30.89 and Other chronic allergic conjunctivitis H10.[address] [facility] [address] [address] 05/25/2024 Cristóbal Miller Allergic rhinitis du e to pollen J30.1 ; Allergic rhinitis due to animal (cat) (dog) hair and dander J30.81 ; Other allergic rhinitis J30.89 and Other chronic allergic conjunctivitis H10.[address] [address] 07/20/2024 Cristóbal Miller Allergic rhinitis du e to pollen J30.1 ; Allergic rhinitis due to animal (cat) (dog) hair and dander J30.81 ; Other allergic rhinitis J30.89 and Other chronic allergic conjunctivitis H10.[address] [facility] [address] [address] 07/27/2024 Cristóbal Miller Allergic rhinitis du e to pollen J30.1 ; Allergic rhinitis due to animal (cat) (dog) hair and dander J30.81 ; Other allergic rhinitis J30.89 and Other chronic allergic conjunctivitis H10.[address] [address] 12/07/2023 Deepa Tamayo Moderate persistent asthma, uncomplicated J45.40 [facility] [address] [place] [address] 07/21/2024 Deepa Tamayo Assessments Encounter Date Diagnosis (ICD Code) Assessment Notes Treatment Notes Treatment Clinical Notes Section Notes 09/02/2023 Allergic rhinitis due to pollen (ICD-10 - J30.1) 10/06/2023 Allergic rhinitis due to pollen (ICD-10 [...] rhinitis due to pollen (ICD-10 - J30.1) 12/23/2023 Allergic rhinitis due to pollen (ICD-10 [...] 3 months for interval evaluation and management 12/07/2023 Moderate persistent asthma, uncomplicated (ICD-10 - J45.40) 03/22/2024 Allergic rhinitis due to pollen (ICD-10 - J30.1) 04/27/2024 Allergic rhinitis due to pollen (ICD-10 - J30.1) 05/25/2024 Allergic rhinitis due to pollen (ICD-10 - J30.1) 07/20/2024 Allergic rhinitis due to pollen (ICD-10 - J30.1) 02/24/2024 Allergic rhinitis due to animal (cat) (dog) hair and dander (ICD-10 - J30.81) Follow allergen avoidance, meds and continue SCIT as an adjunctive treatment to current regimen 07/27/2024 Allergic rhinitis due to pollen (ICD-10 - J30.1) 07/27/2024 Allergic rhinitis due to animal (cat) (dog) hair and dander (ICD-10 - J30.81) 07/20/2024 Allergic rhinitis due to animal (cat) (dog) hair and dander (ICD-10 - J30.81) 05/25/2024 Allergic rhinitis due to animal (cat) (dog) hair and dander (ICD-10 - J30.81) 04/27/2024 Allergic rhinitis due to animal (cat) (dog) hair and dander (ICD-10 - J30.81) 03/22/2024 Allergic rhinitis due to animal (cat) (dog) hair and dander (ICD-10 - J30.81) 02/24/2024 Other allergic rhinitis (ICD-10 - J30.89) Follow allergen avoidance, meds and continue SCIT as an adjunctive treatment to current regimen 01/20/2024 Allergic rhinitis due to animal (cat) [...] (dog) hair and dander (ICD-10 - J30.81) 09/02/2023 Allergic rhinitis due to animal (cat) (dog) hair and dander (ICD-10 - J30.81) 09/02/2023 Other allergic rhinitis (ICD-10 - J30.89) 10/06/2023 Other allergic rhinitis (ICD-10 - J30.89) [...] 01/20/2024 Other allergic rhinitis (ICD-10 - J30.89) 02/24/2024 Other chronic allergic conjunctivitis (ICD-10 - H10.45) Given ocular signs and symptoms I encouraged allergy avoidance measures and meds as above. If symptoms persist, consider adding additional medications including intraocular antihistamine/mas t cell stabilizer, PRN and continue SCIT as an adjunctive measure 03/22/2024 Other allergic rhinitis (ICD-10 - J30.89) 04/27/2024 Other allergic rhinitis (ICD-10 - J30.89) 05/25/2024 Other allergic rhinitis (ICD-10 - J30.89) 07/20/2024 Other allergic rhinitis (ICD-10 - J30.89) 07/27/2024 Other allergic rhinitis (ICD-10 - J30.89) 07/27/2024 Other chronic allergic conjunctivitis (ICD-10 - H10.45) 03/22/2024 Other chronic allergic conjunctivitis (ICD-10 - H10.45) 07/20/2024 Other chronic allergic conjunctivitis (ICD-10 - H10.45) 05/25/2024 Other chronic allergic conjunctivitis (ICD-10 - [...] PCP. -Follow-up in 3 months for E&M 12/23/2023 Other chronic allergic conjunctivitis (ICD-10 - [...] Flu -Follow-up in 3 months for E&M 10/14/2023 Other chronic allergic conjunctivitis (ICD-10 - H10.45) 10/06/2023 Other chronic allergic conjunctivitis (ICD-10 - H10.45) 09/02/2023 Other chronic allergic conjunctivitis (ICD-10 - [...] cause. She has also still been avoiding Catia-[place] which she was previously using daily, and has had no issues since. Recommended continued avoidance at this time 02/24/2024 Other pruritus (ICD-10 - L29.8) No interval episodes since switching from Symbicort to Breo, although very unlikely to have been the cause. She has also still been avoiding Catia-[place] which she was previously using daily, and has had no issues since. Recommended continued avoidance at this time 02/24/2024 Tinnitus, unspecified ear (ICD-10 - H93.19) Glendy reports constant tinnitus and ear muffling. Due to the timing of her symptoms, ENT recommended holding SCIT. Symptoms continue and she has had some improvement with vestibular physical therapy. No difference with steroid. Continue per ENT/Neuro 10/21/2023 Tinnitus, unspecified ear (ICD-10 - H93.19) Glendy reports constant tinnitus and ear muffling. Due to the timing of her symptoms, ENT recommended holding SCIT. Symptoms continue and she has had some improvement with vestibular physical therapy. No difference with steroid. Continue per ENT/Neuro 10/21/2023 Adverse effect of angiotensin-conver ting-enzyme inhibitors, subsequent encounter (ICD-10 - T46.4X5D) Hives in the setting of Lisinopril, continue avoidance. Denies any hives outside of medication. No interval episodes 02/24/2024 Adverse effect of angiotensin-conver ting-enzyme inhibitors, subsequent encounter (ICD-10 - T46.4X5D) Hives in the setting of Lisinopril, continue avoidance. Denies any hives outside of medication. No interval episodes 02/24/2024 Adverse effect of other nonsteroidal anti-inflammatory drugs [NSAID], subsequent encounter (ICD-10 - T39.395D) Redness and flushing with Diclofenac. Continues avoidance without any interval episodes. Tolerates other NSAIDs without issues 10/21/2023 Adverse effect of other nonsteroidal anti-inflammatory drugs [NSAID], subsequent encounter (ICD-10 - T39.395D) Redness and flushing with Diclofenac. Continues avoidance without any interval episodes. Tolerates other NSAIDs without issues 10/21/2023 Essential (primary) hypertension (ICD-10 - I10) BP elevated today without symptoms of urgency or emergency. Continue serial checks and follow-up with PCP 02/24/2024 Essential (primary) hypertension (ICD-10 - I10) BP elevated today without symptoms of urgency or emergency. Continue serial checks and follow-up with PCP 10/21/2023 Other 02/24/2024 Other Plan Of Treatment Next Appt Details Provider Name:Cristóbal Miller , 08/04/2024 04:00:00 PM, [address], [address], [address], Provider Name:Cristóbal Miller , 08/17/2024 04:10:00 PM, [address], [address], [place], [address], Insurance Providers Payer Name Payer Address Payer Phone Subscriber Number Group Number Insured Name Patient Relationship to Insured Coverage Start Date Coverage End Date [facility] [address] [address] [place] [address] [id number] Glendy Osborne Self - patient is the insured 2 Medical (General) History Medical History History ICD Code Hyperlipidemia, unspecified E78.5 Essential (primary) hypertension I10 Surgical History Surgery Date(Month/Year) tonsils 10/13/1972 leg mole removal 09/20/1985 appendix 07/05/1990 tubes tied 09/17/2002 tennis elbow 09/24/2008 kidney surgery 10/18/2008 hysterectomy 11/17/2013
--- OUTSIDE RECORDS SUMMARY | 2024-08-02 22:39 | XMS_ITS | Clinical Summary ---
Author Organization [facility] Address [address] [facility] [place] [address] Phone Care Team Providers Care Workers' Compensation Claims Examiner Name Role Phone Josef Ledbetter MD Primary Care Provider [phone] Social History Tobacco Use Types Packs/Day Years [...] 1-dose 75+ series) 2035 Insurance Care Teams Workers' Compensation Claims Examiner Relationship Specialty Start Date End Date Josef Ledbetter MD PCP - General Internal Medicine 07/27/15
--- OUTSIDE RECORDS SUMMARY | 2024-08-02 22:39 | XMS_ITS | CONTINUITY OF CARE DOCUMENT ---
Author Name robert jones Address Unknown Organization [facility] Address [address] [facility] [address] [place] [address] Phone [phone] Care Team Providers Care Slotter Operator Name Role Phone ROSEMARY FORMAN MD Unavailable [phone] ROSEMARY FORMAN MD Unavailable [phone] INSURANCE PROVIDERS Payer name Policy type / Coverage type [place] red republican ID [facility] [id number] Other [id number]
--- OUTSIDE RECORDS SUMMARY | 2024-08-02 22:39 | XMS_ITS | Clinical Summary ---
Author Organization [facility] Address [address] [place] [address] Care Team Providers Care Construction Mgr Name Role Phone Josef Ledbetter MD Primary Care Provider [phone] Source Comments [facility],non-owned Affiliates and Associated Physician Practices is amultiple site organization consisting of ambulatory clinics and hospital sitesin [place], [place], [place] and [place]. This disclosure is being madepursuant to the Care Everywhere program and may not contain all information available regarding this patient. Last updated 18.[facility] Allergies Active Allergy Reactions Criticality Noted Date [...] 80.7 kg (178 lb) 05/23/2015 10:14 AM [employer] Height 160 cm (5' 3 ) 05/23/2015 10:14 AM [employer] Body Mass Index 31.53 05/23/2015 10:14 AM [employer] Plan of Treatment Health Maintenance Due Date [...] age to complete this topic Care Teams Construction Mgr Relationship Specialty Start Date End Date Josef Ledbetter MD PCP - General Internal Medicine 03/30/15
--- OUTSIDE RECORDS SUMMARY | 2024-08-02 22:39 | XMS_ITS | Continuity of Care Document ---
Author Organization [facility] Address [address] [place] [address] Phone Care Team Providers Care Vehicle Safety Inspector Name Role Phone Ashraf OD, Jabier Unavailable Unavailable Procedures Procedure Date Eye Exam & Treatment Refraction Office/outpatient Visit, Est Office/outpatient Visit, Est Office/outpatient Visit, Est Office/outpatient Visit, Est Office/outpatient Visit, Est Advance Directives Directive Yes / No Effective Date File Name No Information Encounters Encounter Description Practice Location Reason(s) For Visit Diagnoses Date Provider Providers Copied on Encounter [facility], [address] [place] [address] [address], [place], [place], [id number], [place] tel:[phone] [facility] No Information 8-201 0 Ashraf OD Jabier. [address], [place], [address], [place]. tel:[phone] [place] [facility] [address] [place] [address] [address], [place], [place], [id number], [place] tel:[phone] [facility] No Information 1200 7 Bianca Schwartz. [address], [address], [place], [place], [id number], [place]. tel:[phone] Office/[place]pat ient [place] [facility] [address], [place], [place], [id number], tel:[phone] [facility] No Information 0-200 7 Magaly Ugarte. [address] [place] [address] [facility], [address], [place], [place], [id number], . tel:[phone] Office/outpat ient Visit, [facility], [address] [place] [address] [address], [place], [place], [id number], tel:[phone] [facility] Kennedy No Information 2-200 7 Magaly Ugarte. [address] [place] [address] [facility], [address], [place], [place], [id number], . tel:[phone] Referring Provider: Jabier Villatoro, [address] [place], [place] [address], [place], [place], [facility]. tel:[phone] Office/outpat ient Visit, [facility] [place] [address] [place] [address] [address], [place], [place], [id number], tel:[phone] [facility] No Information 7-200 7 Ashraf OD Jabier. [address] [place] [address], [place], [place], [facility], . tel:[phone] Office/outpat ient Visit, [facility], [address] [place] [address] [address], [place], [place], [id number], tel:[phone] [facility] No Information 1-200 7 Ashraf OD Jabier. [address] [place], [place] [address], [place], [place], [facility], . tel:[phone] Family History Family Member Type Diagnosis Age At Onset No Information Payers Payer name Insurance type Covered green party ID Alex mariedionte(s) VSP CI [id number] Social History Type Description Quantity Date Captured [...]
--- NOTE | 2024-08-02 22:49 | ED.CHESTPAIN ---
HPI - Chest Pain General Chief Complaint: Chest Pain Stated Complaint: Left chest pain Time Seen by Provider: 08/02/24 22:24 Source: patient Mode of arrival: ambulatory Limitations: no limitations History of Present Illness HPI narrative: This is a 64-year-old female who presents to the ED for chief complaint of left-sided chest pain beginning earlier today. States that the pain is in the left chest does not radiate. States that and feels like a pinching pain. States that it comes on for a few seconds and then will go away. States that she has recently getting over a bronchitis and still has a bit of a cough. Denies productive cough, fevers, chills. Denies shortness of breath, back pain, nausea, vomiting, diaphoresis, syncope, numbness, weakness. Denies any exertional component to the chest pain. Patient states she has been pain-free since arrival after taking full-dose aspirin here. Related Data Home Medications ?Medication ?Instructions ?Recorded ?Confirmed ?Last Taken ?Type atorvastatin 10 mg tablet 10 mg PO DAILY 07/11/19 07/21/23 Unknown History valsartan 40 mg tablet 40 mg PO DAILY 07/11/19 07/21/23 Unknown History cetirizine 10 mg tablet (Zyrtec) 10 mg PO DAILY 12/01/19 07/21/23 Unknown History montelukast 10 mg tablet 10 mg PO HS 12/01/19 07/21/23 Unknown History fluticasone furoate 100 inhalation 04/10/23 07/21/23 Unknown History mcg-vilanterol 25 mcg/dose inhalation powder (Breo Ellipta) atorvastatin 20 mg tablet mg 07/04/24 Unknown History atorvastatin 40 mg tablet mg 07/04/24 Unknown History metoprolol succinate 25 mg mg PO 07/04/24 Unknown History tablet,extended release 24 hr valsartan 80 mg tablet mg 07/04/24 Unknown History Allergies Allergy/AdvReac Type Severity Reaction Status Date / Time codeine Allergy Intermediate N/V Verified 07/04/24 10:17 diclofenac Allergy Intermediate RED RASH Verified 07/04/24 10:17 Review of Systems Review of Systems: All systems as dictated in HPI [facility] Past Medical History Medical History Carpal tunnel syndrome of left wrist HLD (hyperlipidemia) HTN (hypertension) Social History Social History Smoking packs per day: 1 Smoking cigarettes per day: 20.0 Years smoked: 25 Smoking pack-years: 25.00 Smoking status: Former smoker Tobacco type: cigarettes Second hand tobacco smoke exposure: No Smoking end date: 05/11/15 Alcohol intake: current Drinks per week: 4 Substance use: never Substance use type: does not use Living arrangements: with family Spiritual care concerns: No Exam Narrative: GENERAL: Well-appearing, well-nourished, and in no acute distress. HEAD: Normocephalic, atraumatic. EYES: PERRLA and EOMI. ENT: Nares clear, no rhinorrhea or epistaxis. Mucous membranes moist. Oropharynx without tonsillar hypertrophy exudate or other lesions. NECK: Supple. No adenopathy or masses. CHEST: No respiratory distress. Clear to auscultation. No wheezes rales or rhonchi HEART: Regular rate and rhythm. No murmur heard. Normal peripheral pulses. ABDOMEN: Soft, nontender, nondistended, normal active bowel sounds. MSK: Normal range of motion. No edema. SKIN: Warm, dry, no rash. NEURO: Alert and oriented x4. No focal deficits. PSYCH: Normal mood and affect. Course Vital Signs Vital signs: Vital Signs Temperature 97.6 F 08/02/24 20:05 Pulse Rate 70 08/02/24 20:05 Respiratory Rate 20 08/02/24 20:05 Blood Pressure 149/90 H 08/02/24 20:05 Pulse Oximetry 98 08/02/24 20:05 Temperature 97.6 F 08/02/24 20:05 Pulse Rate 56 L 08/03/24 00:09 Respiratory Rate 15 08/03/24 00:09 Blood Pressure 134/86 08/03/24 00:09 Pulse Oximetry 100 08/03/24 00:09 MDM - Chest Pain MDM Narrative Medical decision making narrative: This is a 64-year-old female who presents to the ED for chief complaint of chest pain beginning earlier today. Vitals are normal. EKG shows sinus rhythm with no acute ischemia. 0 and 3 hour troponins are negative. D-dimer is negative. Heart score is 2. Patient is pain-free after having aspirin earlier. Patient has recent bronchitis and I feel this is pain may be more inflammatory in nature. Chest x-ray shows no acute findings. Patient remains pain free on re-evaluation. Feel that the pain is likely musculoskeletal in nature. She feels comfortable with discharge home. Patient will be discharged in stable condition. Supportive measures discussed and return precautions given. Patient is understanding and agreeable with plan for discharge with PCP follow-up. Lab Data 08/02/24 20:49 08/02/24 20:49 Labs: Lab Results 08/02/24 08/02/24 08/02/24 Range/Units 20:48 20:49 22:46 WBC 10.0 (4.5-10.0) K/mm3 RBC 4.28 (4.2-5.4) M/mm3 Hgb 13.7 (12.0-15.0) g/dL Hct 41.2 (37.0-47.0) % MCV 96.3 (80-100) fl MCH 32.0 (26-34) pg MCHC 33.3 (32-36) g/dl RDW 12.7 (11.5-14.5) % Plt Count 302 (150-375) k/mm3 MPV 10.1 (7.4-10.4) fl Immature Gran % (Auto) 0.3 (0-0.5) % Neut % (Auto) 73.7 H (45.5-73.1) % Lymph % (Auto) 15.3 L (18.3-44.2) % [place] % (Auto) 8.3 (2.6-8.5) % Eos % (Auto) 1.7 (0-4.4) % Baso % (Auto) 0.7 (0.2-1.2) % Lymph # (Auto) 1.53 (0.9-3.2) K/mm3 [place] # (Auto) 0.8 H (0.1-0.6) K/mm3 Eos # (Auto) 0.2 (0-0.3) K/mm3 Baso # (Auto) 0.1 (0.0-0.1) K/mm3 Abs Immat Gran (auto) 0.03 (0.00-0.031) K/mm3 Absolute Neuts (auto) 7.3 H (1.3-6.7) K/mm3 Absolute Nucleated RBC 0.000 (0.0-0.012) K/mm3 Nucleated RBC % 0.0 (0.0-0.2) % PT 13.0 (11.1-14.7) Seconds INR 0.9 APTT 28.5 (22.3-36.8) Seconds D-Dimer 0.27 (<0.48) ug/mL Sodium 140 (137-145) mmol/L Potassium 3.8 (3.4-5.0) mmol/L Chloride 106 (98-107) mmol/L Carbon Dioxide 25 (22-30) mmol/L Anion Gap 9 (4-12) mmol/L BUN 20 H (7-17) mg/dL Creatinine 1.02 H (0.7-1.0) mg/dL Estim Creat Clear Calc 50 ml/min Estimated GFR 55 L (59 - ) Glucose 128 H (65-110) mg/dL Calcium 9.4 (8.4-10.2) mg/dL Total Bilirubin 0.4 (0.2-1.3) mg/dL AST 25 (14-36) U/L ALT 21 (6-35) U/L Alkaline Phosphatase 74 (38-126) U/L Troponin I < 0.012 < 0.012 (0.000-0.034) ng/mL Total Protein 7.0 (6.3-8.2) g/dL Albumin 4.2 (3.5-5.1) g/dL Lipase 162 (23-300) U/L Discharge Plan Discharge Clinical Impression: Atypical chest pain Patient Disposition: Home, Self-Care Condition: Stable Instructions: Antibiotic Form, Chest Pain (ED) Additional Instructions: Exam and imaging today are reassuring overall. Please follow-up with your PCP regarding chest pain. Continue taking anti-inflammatories as needed for pain control. If you have any new or worsening symptoms please return to the ER for further evaluation. Patient Language: Vincentian Prescriptions: No Action montelukast 10 mg Tablet 10 mg PO HS cetirizine [Zyrtec] 10 mg Tablet 10 mg PO DAILY fluticasone furoate-vilanterol [Breo Ellipta] 100-25 mcg/dose blister with device INHALATION prednisone 20 mg tablet 40 mg PO DAILY 5 Days Qty: 10 0RF atorvastatin 40 mg tablet atorvastatin 20 mg tablet valsartan 80 mg tablet metoprolol succinate 25 mg tablet extended release 24 hr PO prednisone 20 mg tablet 40 mg PO DAILY 5 Days Qty: 10 0RF atorvastatin 10 mg tablet 10 mg PO DAILY valsartan 40 mg tablet 40 mg PO DAILY polyethylene glycol 3350 17 gram powder in packet 17 g PO DAILY PRN (Reason: constipation) Qty: 14 1RF ondansetron 8 mg tablet,disintegrating 8 mg PO Q8H PRN (Reason: nausea and vomiting) Qty: 10 1RF hydrocodone-acetaminophen 5-325 mg tablet 1 tablet PO Q6H PRN (Reason: pain) Qty: 20 0RF Follow-up/Referrals: Sherin,Josef Martin MD [Primary Care Provider] - Time of Disposition: 23:50 Quality HEART score for chest pain patients History: slightly suspicious ECG: normal Age: > 45 and < 65 years Risk factors: 1 or 2 risk factors Troponin: < or = to 1x normal limit Heart score: 2
[2024-08-02 23:16] LABS: Troponin I < 0.012 ng/mL (0.000-0.034)
[2024-08-02 23:31] LABS: D Dimer 0.27 ug/mL (<0.48)
[2024-08-02 23:45] VITALS: BP 136/76; PULSE 58; RESP 15; O2SAT 100
[2024-08-03 00:09] VITALS: BP 134/86; PULSE 56; RESP 15; O2SAT 100
== END 2024-08-03 00:09 | disposition home or self-care (01) ==
PROVIDERS: Student in an Organized Health Care Education/Training Program; Emergency Provider Physician Assistant; PCP Family Medicine
DX: R07.89 Other chest pain (principal); I10 Essential (primary) hypertension; E78.5 Hyperlipidemia, unspecified
CPT/HCPCS: 36415; 71046; 80053; 83690; 84484; 85025; 85380; 85610; 85730; 99284; A9270

== ENCOUNTER 2024-11-09 15:48 | Outpatient (CLI) | payer OTHER, SELFPAY ==
--- NOTE | ~2024-11-09 | MM_ITS ---
EXAMINATION: MM screening joya BI w glory HISTORY: Screening mammogram TECHNIQUE: Craniocaudal and mediolateral oblique 3-D tomosynthesis images were obtained and synthetic 2-D images were generated. CAD analysis was submitted and interpreted. COMPARISON: No prior mammogram is available for comparison at this institution. BREAST PARENCHYMAL COMPOSITION:Not Dense. There are scattered areas of fibroglandular density. FINDINGS: No suspicious mass, calcification, or architectural distortion are identified in either radha ast to suggest malignancy. There has been no suspicious interval change. IMPRESSION: No mammographic evidence of malignancy. Recommend routine screening mammography in one year. BI-RADS Category 1: Negative Reviewed, dictated and finalized at location .
--- OUTSIDE RECORDS SUMMARY | 2024-11-09 15:54 | XMS_ITS | Clinical Summary ---
Author Organization [facility] Address [address] [place] [address] Care Team Providers Care Tearoom Hostess Name Role Phone Josef Duff MD Primary Care Provider [phone] Allergies Active Allergy Reactions Criticality Noted Date [...] Encounters Date Type Department Care Team Description 11/09/2024 7:11 AM CDT Hospital Encounter [facility] [address] [place] [address] Personal history of nicotine dependence 11/07/2024 Telephone [facility] [address] [place] [address] Madeline Guerin RN 11/03/2024 6:55 AM CDT - 11/03/2024 11:59 PM CDT Hospital Encounter [facility] [address] [place] [address] Pain in left hip Discharge Disposition: Discharge to home or self care from Last 3 Months Surgical History Surgery Date Site/Laterality Comments [place] APPENDECTOMY Appendectomy - (Added by TW Conv) [place] LAPAROSCOPY SURG PYELOPLASTY Kidney Surgery Laparoscopic Pyeloplasty - (Added by TW Conv) ELBOW SURGERY Elbow Surgery - (Added by TW Conv) [place] LIG/TRNSXJ FLP TUBE ABDL/ VAG APPR UNI/BI Tubal Ligation - (Added by TW Conv) [place] TONSILLECTOMY PRIMARY/SECONDARY <AGE 12 Tonsillectomy - (Added [...] on file 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 Gender Identity Not on file Sexual Orientation [...] - - Weight 80.7 kg (178 lb) 11/09/2024 7:23 AM CDT Height 160 cm (5' 3) 11/09/2024 7:23 AM CDT Body Mass Index 31.53 11/09/2024 7:23 AM CDT Plan of Treatment Health Maintenance Due Date Last Done Comments Breast Cancer Screening-Mammogram 1960 Cervical Cancer Screening 1960 Depression Screening 1960 Hepatitis C Screening 1960 DTaP/Tdap/Td Vaccine (1 - Tdap) 1971 Hepatitis B Screening 1978 Regular Well Visit/Exam 18-64 1978 Zoster Vaccine (1 of 2) 2010 Colon Cancer Screening-Colonoscopy 08/18/2022 08/18/2012 Lung Cancer Screening 10/11/2024 04/14/2024 Influenza Vaccine (#1) 2025 3, 05/11/2020, 02/10/2020, Additional history exists Colon Cancer Screening-CT Colonography Discontinued 08/18/2012 Colon Cancer Screening-DNA Stool Discontinued 08/18/2012 Colon Cancer Screening-FIT Discontinued 08/18/2012 Colon Cancer Screening-Sigmoidoscopy Discontinued 08/18/2012 Pneumococcal vaccine <65 Aged Out No longer eligible based on patient's age to complete this topic Procedures Procedure Name Priority Date/Time Associated Diagnosis Comments MRI HIP LEFT WO CONTRAST Schedule Routine, Read Routine (OP Routine) 11/03/2024 8:15 AM CDT Pain in left hip CT LUNG CANCER SCREENING Schedule Routine, Read Routine (OP Routine) 04/14/2024 3:47 PM OPERATIONS PROGRAM MANAGER Encounter for screening for lung cancer COLONOSCOPY REPORT 08/18/2012 from Last 3 Months or Most Recently Relevant to Health Maintenance Results * MRI Hip Left WO Contrast (11/03/2024 8:15 AM CDT) Anatomical Region Laterality Modality Lower Extremities Left Magnetic Reson ance 11/03/2024 8:59 AM CDT Narrative 11/03/2024 10:01 AM CDT EXAM DESCRIPTION: MRI HIP LEFT WO CONTRAST REASON FOR STUDY: Pain in left hip Pt has pain radiating from buttock to inner thigh. No injury. Started about 6 weeks ago. Sharp / burning pain when standing , sitting , or walking. TECHNIQUE: Multiplanar, multisequence MRI of the left hip was performed . COMPARISON: None FINDINGS: Bones: No fracture. No avascular necrosis. Joint Effusion: None. No trochanteric bursal fluid. Femoral Head, Neck and Acetabulum: No arthropathy. Normal sphericity of femoral head/neck junction. Mild chondromalacia. Labrum: Suboptimally assessed in the absence of intra-articular contrast. Within that limitation, there is no labral tear. Muscles/Soft Tissues: Gluteus medius and minimus tendons are intact. Mild insertional gluteus minimus tendinosis with insertional tearing on the left. Pyriformis muscle and tendon are intact. Common hamstring attachment is intact. Pelvis: Within the left hemipelvis there is a T2 hyperintense lesion measuring a maximum of 4.6 x 4.5 x 5 cm ( in 04/12). This is indeterminate. This is relatively stable in size compared to CT dated March 27, 2024 favoring a benign process. 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 IMPRESSION: 1. Left hemipelvis 4.6 x 4.5 x 5 cm T2 hyperintense lesion,, relatively stable in size compared to CT dated March 27, 2024 favoring a benign process such as a a lymphocele. 2. Mild insertional gluteus minimus tendinosis with insertional tearing on the left. 3. Mild left hip chondromalacia. THIS IS AN ELECTRONICALLY VERIFIED FINAL REPORT 11/03/2024 10:01 AM - Electronically signed by Isma Wells M.D. JA: CARLO Report ID: [id number] Reading Location: [id number] Procedure Note Isma Wells MD - 11/03/2024 EXAM DESCRIPTION: MRI HIP LEFT WO CONTRAST REASON FOR STUDY: Pain in left hip Pt has pain radiating from buttock to inner thigh. No injury. Startedabout 6 weeks ago. Sharp / burning pain when standing , sitting , or walking. TECHNIQUE: Multiplanar, multisequence MRI of the left hip was performed. COMPARISON: None FINDINGS: Bones: No fracture. No avascular necrosis. Joint Effusion: None. No trochanteric bursal fluid. Femoral Head, Neck and Acetabulum: No arthropathy. Normal sphericity of femoral head/neck junction. Mild chondromalacia. Labrum: Suboptimally assessed in the absence of intra-articular contrast. Within that limitation, there is no labral tear. Muscles/Soft Tissues: Gluteus medius and minimus tendons are intact.Mild insertional gluteus minimus tendinosis with insertional tearing on theleft. Pyriformis muscle and tendon are intact. Common hamstring attachment is intact. Pelvis: Within the left hemipelvis there is a T2 hyperintense lesion measuring a maximum of 4.6 x 4.5 x 5 cm (34 in 04/12). This is indeterminate. This is relatively stable in size compared to CT dated March 27, 2024 favoring a benign process. This is favored to representa lymphocele.. IMPRESSION: 1. Left hemipelvis 4.6 x 4.5 x 5 cm T2 hyperintense lesion,, relatively stable in size compared to CT dated March 27, 2024 favoring a benign process such as a a lymphocele. 2. Mild insertional gluteus minimus tendinosis with insertional tearingon the left. 3. Mild left hip chondromalacia. THIS IS AN ELECTRONICALLY VERIFIED FINAL REPORT 11/03/2024 10:01 AM - Electronically signed by Isma Wells M.D. JA: CARLO Report ID: [id number] Reading Location: [place] [address] Agnieszka Garnica NP IMG MRI PROCEDURES Final Res ult * CT Lung Cancer Screening (04/14/2024 3:47 PM OPERATIONS PROGRAM MANAGER) Anatomical Region Laterality Modality Chest N/A Computed Tomogra phy 04/20/2024 7:06 AM OPERATIONS PROGRAM MANAGER Narrative 04/20/2024 7:11 AM OPERATIONS PROGRAM MANAGER EXAM DESCRIPTION: CT LUNG CANCER SCREENING REASON [...] Electronically signed by Carin Benson M.D. TW: TW Report ID: [id number] Reading Location: [id number] Procedure Note Carin Benson MD - 04/20/2024 [...] Carin Benson M.D. TW: JESSICA Report ID: [id number] Reading Location: [id number] Agnieszka Garnica NP IMG CT PROCEDURES Final Resu lt * COLONOSCOPY REPORT (08/18/2012) Anatomical Region Laterality Modality Other Narrative 08/18/2012 Ordered by an unspecified provider. Historical Provider GI PROCEDURE ORDERABLES F inal Result from Last 3 Months or Most Recently Relevant to Health Maintenance Insurance [facility] H[facility]PPO Address: [place] [address] [facility]O Address: [facility] [address] [place] [address] Care Teams Tearoom Hostess Relationship Specialty Start Date End Date Josef Duff MD [facility] [place] [address] PCP - General Family Medicine 10/25/24
--- OUTSIDE RECORDS SUMMARY | 2024-11-09 15:54 | XMS_ITS ---
Author Organization [facility] ([address]) Address [address] [place] [address] Care Team Providers Care Resident Services Director Name Role Phone Sherin Josef Primary Care Provider UnavailDeepa Jenkins Unavailable [phone] Omid Beatty Unavailable Unavailable Cristóbal Miller Unavailable [phone] REASON FOR VISIT SCIT (Aeroallergen) Encounters Encounter Location Date Provider Diagnosis [facility] [address] [place] [address] 10/26/2024 Cristóbal Miller Plan Of Treatment Next Appt Details Provider Name:Cristóbal Miller , 11/29/2024 04:00:00 PM, [address], [address], [place], [address], Provider Name:Francine yu, 04/25/2025 03:00:00 PM, [address], [address], [place], [address], Progress Notes * Glendy OSBORNE CDOB:[birth year] (64 yo F)Acc No.[id number]:10/26/2024 SCIT-Aeroallergen Patient: Justyna Glendy RICHARD Provider: Sariah Miller MD :1960 A ge:64 Y S ex:Female Date:10/26/2024 Address:[facility] Pcp:Josef Duff Subjective: * Chief Complaints: * 1 . SCIT (Aeroallergen). * Medical History: Objective: * Vitals: Assessment: Plan: * Treatment: * Billing Information: * Visit Code: * Procedure Codes: * Electronic signature of Pataimee Miller MD, FAAAAI on 11/09/2024 at 07:12 AM CDT Sign off status: Pending * Provider: Sariah Miller MD Date: 10/26/2024 Generated for Waynei travon/Shai/eTransmitting on: 11/09/2024 07:12 AM CDT
--- OUTSIDE RECORDS SUMMARY | 2024-11-09 15:54 | XMS_ITS | Continuity of Care Document ---
Author Organization [facility] Address [address] [place] [address] Phone Care Team Providers Care Tank Hoop Bender Name Role Phone Ashraf OD, Jabier Unavailable Unavailable Procedures Procedure Date Eye Exam & Treatment Refraction Office/outpatient Visit, Est Office/outpatient Visit, Est Office/outpatient Visit, Est Office/outpatient Visit, Est Office/outpatient Visit, Est Advance Directives Directive Yes / No Effective Date File Name No Information Encounters Encounter Description Practice Location Reason(s) For Visit Diagnoses Date Provider Providers Copied on Encounter [facility], [address] [place] [address] [address], [place], [place], [id number], [place] tel:[phone] SEC [facility] No Information 8-201 0 Ashraf OD Jabier. [address] , [address], [place], [address], [place]. tel:[phone] Office/outpat ient Visit, [facility], [address] [place] [address] [address], [place], [place], [id number], [place] tel:[phone] SEC Bandar Kennedy No Information 1 7 Bianca Schwartz. [address] [facility], [address], [place], [place], [address], [place]. tel:[phone] Office/outpat ient Visit, [facility], [address], [place], [place], [id number], tel:[phone] SEC Bandar Kennedy No Information 0-200 7 Magaly Ugarte. [address] [place] [address] [employer] [facility], [address], [place], [place], [id number], . tel:[phone] Office/outpat ient Visit, [facility], [address] [place] [address] [address], [place], [place], [address], tel:[phone] SEC Bandar Kennedy No Information 2-200 7 Magaly Ugarte. [address] [place] [address] [employer] [facility], [address], [place], [place], [address], . tel:[phone] Referring Provider: Jabier Villatoro, [address] [place], [place] [address], [place], [place], [facility]. tel:[phone] Office/outpat ient Visit, [facility], [address] [place] [address] [address], [place], [place], [address], tel:[phone] SEC [facility] No Information 7-200 7 Ashraf OD Jabier. [address] [place] [address], [place], [place], [facility], . tel:[phone] Office/outpat ient Visit, [facility], [address] [place] [address] [address], [place], [place], [id number], tel:[phone] [facility] No Information 1-200 7 Ashraf OD Jabier. [address] [place], [place] [address], [place], [place], [facility], . tel:[phone] Family History Family Member Type Diagnosis Age At Onset No Information Payers Payer name Insurance type Covered republican ID Alex mariedionte(s) VSP CI [id number] Social History Type Description Quantity Date Captured [...]
--- OUTSIDE RECORDS SUMMARY | 2024-11-09 15:54 | XMS_ITS | Referral Summary ---
Author Organization [facility] Address [address] [place] [address] Care Team Providers Care Blanket Winder Operator Name Role Phone Josef Duff MD Primary Care Provider [phone] Encounters Date Type Department Care Team Description 11/09/2024 7:11 AM CDT Hospital Encounter [facility] [address] [place] [address] Personal history of nicotine dependence 11/07/2024 Telephone [facility] [address] [place] [address] Madeline Guerin RN 11/03/2024 6:55 AM CDT - 11/03/2024 11:59 PM CDT Hospital Encounter [facility] [address] [place] [address] Pain in left hip Discharge Disposition: Discharge [...] on file 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 JA: CARLO Report ID: [id number] Reading Location: [place] [address] Procedure Note Isma Wells MD - 11/03/2024 [...] Isma Wells M.D. JA: CARLO Report ID: [id number] Reading Location: [id number] Agnieszka Garnica NP IMG MRI PROCEDURES Final Res ult * CT Lung Cancer Screening (04/14/2024 3:47 PM INTERNET SALES MANAGER) Anatomical Region Laterality Modality Chest N/A Computed Tomogra phy 04/20/2024 7:06 AM INTERNET SALES MANAGER Narrative 04/20/2024 7:11 AM INTERNET SALES MANAGER EXAM DESCRIPTION: CT LUNG CANCER SCREENING [...] Carin Benson M.D. TW: JESSICA Report ID: [id number] Reading Location: [place] [address] Procedure Note Carin Benson MD - 04/20/2024 [...] Carin Benson M.D. TW: JESSICA Report ID: [id number] Reading Location: [id number] Agnieszka Garnica NP IMG CT PROCEDURES Final Resu lt * COLONOSCOPY REPORT (08/18/2012) Anatomical Region Laterality Modality Other Narrative 08/18/2012 Ordered by an unspecified provider. Historical Provider GI PROCEDURE ORDERABLES F inal Result from Last 3 Months or Most Recently Relevant to Health Maintenance Insurance [facility] PL[facility] Care Teams Blanket Winder Operator Relationship Specialty Start Date End Date Josef Duff MD [address] [place] [address] PCP - General Family Medicine 10/25/24
--- OUTSIDE RECORDS SUMMARY | 2024-11-09 15:54 | XMS_ITS | Encounter Summary ---
Author Organization [facility] Healthcare Address [address] [place] [address] Care Team Providers Care Infrastructure Analyst Name Role Phone Josef Duff MD Primary Care Provider [phone] Reason for Referral * MRI/CAT/PET Scan (Routine) - Closed Specialty Diagnoses / Procedures Referred By Alexandra edmondson Referred To Contact Radiology Diagnoses Personal history of nicotine dependence Procedures CT Lung Cancer Screening Agnieszka Garnica NP [address] [place] [address] fax: [address] [phone] Referral ID Status Reason Start Date Expiration Date Visits Re quested Visits Authorized [id number] Closed 09/29/2024 11/13/2024 1 1 Reason for Visit * MRI/CAT/PET Scan (Routine) - Closed Specialty Diagnoses / Procedures Referred By Alexandra edmondson Referred To Contact Radiology Diagnoses Personal history of nicotine dependence Procedures CT Lung Cancer Screening Agnieszka Garnica NP [address] [place] [address] fax: [address] [phone] Referral ID Status Reason Start Date Expiration Date Visits Re quested Visits Authorized [id number] Closed 09/29/2024 11/13/2024 1 1 Encounter Details Date Type Department Care Team (Latest Contact Info) Description 11/09/2024 7:11 AM CDT Hospital Encounter [facility] [address] [place] [id number] Personal history of nicotine dependence Social History Tobacco Use Types Packs/Day Years Used Date Smoking Tobacco: Former Alcohol Use Standard Drinks/Week Comments Yes 1 (1 standard drink = 0.6 oz pur e alcohol) Comments Unknown Sex and Gender Information Value Date Recorded Sex Assigned at Not on file 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 Gender Identity Not on file Sexual Orientation Not on file documented as of this encounter Last Filed Vital Signs Vital Sign Reading Time Taken Comments Blood Pressure - - Pulse - - Temperature - - Respiratory Rate - - Oxygen Saturation - - Inhaled Oxygen Concentration - - Weight 80.7 kg (178 lb) 11/09/2024 7:23 AM CDT Height 160 cm (5' 3) 11/09/2024 7:23 AM CDT Body Mass Index 31.53 11/09/2024 7:23 AM CDT documented in this encounter Plan of Treatment Pending Results Name Type Priority Associated Diagnoses Date /Time CT Lung Cancer Screening Imaging Schedule Routine, Read Routine (OP Routine) Personal history of nicotine dependence 11/09/2024 7:22 AM CDT Scheduled Orders Name Type Priority Associated Diagnoses Orde r Schedule CT Lung Cancer Screening Imaging Schedule Routine, Read Routine (OP Routine) Personal history of nicotine dependence Once for 1 Occurrences starting 11/09/2024 until 11/09/2024 documented as of this encounter Visit Diagnoses Diagnosis Personal history of nicotine dependence documented in this encounter Care Teams Infrastructure Analyst Relationship Specialty Start Date End Date Josef Duff MD [address] [place] [address] PCP - General Family Medicine 10/25/24 documented as of this encounter
--- OUTSIDE RECORDS SUMMARY | 2024-11-09 15:54 | XMS_ITS | Clinical Summary ---
Author Organization [facility] Address [address] [facility] [place] [address] Phone Care Team Providers Care Fire Crew Worker Name Role Phone Josef Ledbetter MD Primary Care Provider [phone] Social History Tobacco Use Types Packs/Day Years Used Date Smoking Tobacco: Never Assessed Comments Unknown Sex and Gender Information Value Date Recorded Sex Assigned at Not on file Legal Sex Female 2:05 PM CDT Gender Identity Not on file Sexual Orientation Not on file Plan of Treatment Health Maintenance Due Date Last Done Comments DTAP/TDAP/TD VACCINES (1 - Tdap) 1979 HPV/Cotest (21-29) 1981 CERVICAL CANCER SCREENING 1990 HPV/Cotest (30-65) 1990 PAP SMEAR 1990 BREAST CANCER SCREENING 2000 COLORECTAL SCREENING 2005 Colorectal Cancer Screening 2005 FIT-DNA Q 3 years 2005 FIT/FOBT Q 1 year 2005 Flex Sig/CT Colonography Q 5 years 2005 ZOSTER VACCINE (1 of 2) 2010 INFLUENZA VACCINE (#1) 2024 RSV VACCINE (60+ or ) (1 - 1-dose 75+ series) [address] [place] [id number] [facility] Address: [facility] [id number] [place] [address] Care Teams Fire Crew Worker Relationship Specialty Start Date End Date Josef Ledbetter MD PCP - General Internal Medicine 07/27/15
--- OUTSIDE RECORDS SUMMARY | 2024-11-09 15:54 | XMS_ITS | Clinical Summary ---
Author Organization [facility] [employer] Address [address] [facility] [place] [address] Care Team Providers Care Stem Teacher Name Role Phone Josef Ledbetter MD Primary Care Provider [phone] Source Comments [facility],non-owned Affiliates and Associated Physician Practices is amultiple site organization consisting of ambulatory clinics and hospital sitesin [place], [place], [place] and [place]. This disclosure is being madepursuant to the Care Everywhere program and may not contain all information available regarding this patient. Last updated 18.[facility] [employer] Allergies Active Allergy Reactions Criticality Noted Date Comments Codeine 05/23/2015 Diclofenac Sodium 05/23/2015 Medications * Be aware that medications may not be up to date on this document. Alwaysverify current medications with the patient. 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 Not on file Not on file Not on file Last Filed Vital Signs Vital Sign Reading Time Taken Comments Blood Pressure - - Pulse - - Temperature - - Respiratory Rate - - Oxygen Saturation - - Inhaled Oxygen Concentration - - Weight 80.7 kg (178 lb) 05/23/2015 10:14 AM ANESTHESIOLOGY RESIDENT Height 160 cm (5' 3) 05/23/2015 10:14 AM ANESTHESIOLOGY RESIDENT Body Mass Index 31.53 05/23/2015 10:14 AM ANESTHESIOLOGY RESIDENT Plan of Treatment Health Maintenance Due Date Last Done Comments COLOGUARD (AGES 45-75) - COL ON CA SCREENING 1960 COLON MONITORING 1960 COLONOSCOPY - COLON CA SCREENING 1960 CT COLONOGRAPHY - COLON CA SCREENING 1960 Colorectal Cancer Screening 1960 FIT - COLON CA SCREENING 1960 FLEX SIG - COLON CA SCREENING 1960 MAMMOGRAM 1960 HIV SCREENING 1975 HEPATITIS C SCREENING 04/18/1978 DTAP/TDAP/TD VACCINES (1 - Tdap) 1979 PNEUMOCOCCAL VACCINE 50+ (1 of 1 - PCV) 2010 ZOSTER VACCINE (1 of 2) 2010 COVID-19 VACCINE (1 - 2023-2 5 season) 2024 DEPRESSION SCREENING 05/11/2024 INFLUENZA VACCINE (Season Ended) 2025 Respiratory Syncytial Virus (RSV) Vaccine Pt: or [...] on patient's age to complete this topic Insurance [facility] Care Teams Stem Teacher Relationship Specialty Start Date End Date Josef Ledbetter MD PCP - General Internal Medicine 03/30/15
--- OUTSIDE RECORDS SUMMARY | 2024-11-09 15:55 | XMS_ITS | Patient Health Record ---
Author Organization [facility] [place] ([address]) Address [address] [place] [address] Care Team Providers Care Senior Power Scheduler Name Role Phone Josef Duff Primary Care Provider UnavailDeepa Jenkins Unavailable [phone] Omid Beatty Unavailable Unavailable Cristóbal Miller Unavailable [phone] Nadia Conte Unavailable [phone] Deric Rockwell Unavailable [phone] Allergies Allergen (clinical drug ingredient) Drug/Non Drug Allergy documented on EMR Reaction Allergy Type Onset Date Status Diclofenac hives Drug Allergy Active Lisinopril hives Drug Allergy Active codeine Codeine vomiting Drug Allergy Active Results Component Value Reference Range Notes Spirometry (Not yet reviewed by provider) Interpretation: Performing Lab: Notes/Report: SpiroPreBronchodilator_FVC 2.78 SpiroPostBronchodilator_FEF25_75 0 SpiroPreBronchodilator_FEF25_75 2.03 SpiroPreBronchodilator_FEV1 2.11 SpiroPrecentPredictionPost_FEF25_75 0 SpiroPrecentPredictionPost_FEV1 0 SpiroPrecentPredictionPost_FEV1_OVER_FVC 0 SpiroPrecentPredictionPost_FVC 0 SpiroPrecentPredictionPre_FEF25_75 92.3 SpiroPrecentPredictionPre_FEV1 93.4 SpiroPrecentPredictionPre_FEV1_OVER_FVC 97.5 SpiroPrecentPredictionPre_FVC 96.5 SpiroPredicted_FEF25_75 2.2 SpiroPreBronchodilator_FEV1_OVER_FVC 76.16 SpiroPreBronchodilator_PEF 2.78 SpiroPostBronchodilator_FVC 0 SpiroPostBronchodilator_FEV1 0 SpiroPostBronchodilator_FEV1_OVER_FVC 0 SpiroPostBronchodilator_PEF 0 SpiroPredicted_FVC 2.88 SpiroPredicted_FEV1 2.26 SpiroPredicted_FEV1_OVER_FVC 78.13 SpiroPredicted_PEF 5.51 Reason For Referral No Information Medications Medication SIG (Take, Route, Frequency, Duration) Notes Start Date End Date Status EPINEPHrine 0.3 MG/0.3ML as directed Injection as needed for swelling or allergic reactdion; Duration: 30 days 11/03/2024 Active EPINEPHrine 0.3 MG/0.3ML as directed Injection as needed; Duration: 30 days 12/07/2023 Active Montelukast Sodium 10 MG 1 tab(s) orally once a day; Duration: 30 days Active Albuterol Sulfate HFA 108 (90 Base) MCG/ACT 1 puff as needed Inhalation every 4 hrs; Duration: 30 days 12/07/2023 Active Auvi-Q 0.3 MG/0.3ML as directed intramuscularly once; Duration: 30 day(s) Not-Taking Valsartan 80 MG 1 tab(s) orally once a day; Duration: 30 day(s) Active Atorvastatin Calcium 20 MG 1 tab(s) orally once a day; Duration: 30 day(s) Active ZYRTEC 10 mg 1 tab(s) orally once a day Active SLOW MAGNESIUM CHLORIDE WITH CALCIUM 118 MG-71 MG 2 TAB(S) ORALLY ONCE A DAY *Please review for potential replacement for e-prescription and drug interaction check* Active Claritin 10 MG 1 tablet Orally Once a day Active ATORVASTATIN 20 mg 1 tab(s) orally once a day; Duration: 30 day(s) Not-Taking BREO ELLIPTA 100 mcg-25 mcg/inh 1 puff(s) inhaled once a day; Duration: 30 days Not-Taking EPINEPHrine 0.3 MG DIRECTED INTRAMUSCULARLY ONCE; Duration: 30 DAYS *Please review and pick correct strength-formula tion from [employer] options. If intended option is not shown, discontinue and re-order from Quick Search* Not-Taking NASACORT ALLERGY 24HR 55 mcg/inh 2 spray(s) intranasally once a day; Duration: 30 day(s) Active Famotidine 40 MG 1 tab(s) orally once a day (at bedtime) Active Nasacort Allergy 24HR 55 MCG/ACT 2 spray(s) intranasally once a day; Duration: 30 day(s) Active ZyrTEC Allergy 10 MG 1 tab(s) orally once a day Active EPINEPHRINE 0.3 mg as directed intramuscularly once; Duration: 30 days Not-Taking VALSARTAN 80 mg 1 tab(s) orally once a day; Duration: 30 day(s) Not-Taking SIT (TRADITIONAL) variable per schedule SC per schedule; Duration: to be determined Active NASAL WASHES N/A as directed intranasally as needed; Duration: 30 Active FAMOTIDINE 40 mg 1 tab(s) orally once a day (at bedtime) Active Airsupra 90-80 MCG/ACT 2 puffs as needed Inhalation Six times a day; Duration: 30 days 11/03/2024 Active MONTELUKAST SODIUM 10 mg 1 tab(s) orally once a day Active Breo Ellipta 100-25 MCG/ACT 1 puff Inhalation Once a day; Duration: 90 days Active Immunizations Vaccine Route Administration Date Status [...] Status Risk Notes Problem Chronic allergic conjunctivitis (96863257) Other chronic allergic conjunctivitis (H10.45) Active confirmed Problem Tinnitus (67705710) Tinnitus, unspecified ear (H93.19) Active confirmed Problem Allergic rhinitis (87075270) Other allergic rhinitis (J30.89) Active confirmed Problem Uncomplicated moderate persistent asthma (126008535) Moderate persistent asthma, uncomplicated (J45.40) Active confirmed Problem Cough (58746627) Cough (R05) Active confirmed Problem Non-steroidal anti-inflammatory drug adverse reaction (869336258) Adverse effect of other nonsteroidal anti-inflammatory drugs [NSAID], subsequent encounter (T39.395D) Active confirmed Problem Angiotensin-conve rting-enzyme inhibitor adverse reaction (116197454) Adverse effect of angiotensin-conve rting-enzyme inhibitors, subsequent encounter (T46.4X5D) Active confirmed Problem Allergic rhinitis caused by pollen (disorder) (54743979) Allergic rhinitis due to pollen (J30.1) Active confirmed Problem Allergic rhinitis caused by animal hair and dander (059306630967364) Allergic rhinitis due to animal (cat) (dog) hair and dander (J30.81) Active confirmed Problem Essential hypertension (99911035) Essential (primary) hypertension (I10) Active confirmed Vital Signs Oximetry 99 % 11/03/2024 Blood pressure diastolic 88 mm Hg 11/03/2024 Height 63.0 in 11/03/2024 Blood pressure systolic 137 mm Hg 11/03/2024 Weight 182.4 lbs 11/03/2024 BMI 32.31 kg/m2 11/03/2024 Encounters Encounter Location Date Provider Diagnosis [facility] [address] [place] [phone] 11/25/2023 Cristóbal Miller Allergic rhinitis du e to pollen J30.1 ; Allergic rhinitis due to animal (cat) (dog) hair and dander J30.81 ; Other allergic rhinitis J30.89 and Other chronic allergic conjunctivitis H10.45 [facility] [address] [place] [phone] 12/23/2023 Cristóbal Miller Allergic rhinitis du e to pollen J30.1 ; Allergic rhinitis due to animal (cat) (dog) hair and dander J30.81 ; Other allergic rhinitis J30.89 and Other chronic allergic conjunctivitis H10.[address] [address] 01/20/2024 Cristóbal Miller Allergic rhinitis du e to pollen J30.1 ; Allergic rhinitis due to animal (cat) (dog) hair and dander J30.81 ; Other allergic rhinitis J30.89 and Other chronic allergic conjunctivitis H10.[address] [address] 02/24/2024 Nadia Conte Allergic rhinitis du e [...] encounter T39.395D and Essential (primary) hypertension I10 [facility] [address] [place] [address] [address] 03/22/2024 Cristóbal Miller Allergic rhinitis du e to pollen J30.1 ; Allergic rhinitis due to animal (cat) (dog) hair and dander J30.81 ; Other allergic rhinitis J30.89 and Other chronic allergic conjunctivitis H10.45 [facility] [address] [place] [address] [address] [address] 04/27/2024 Cristóbal Miller Allergic rhinitis du e to pollen J30.1 ; Allergic rhinitis due to animal (cat) (dog) hair and dander J30.81 ; Other allergic rhinitis J30.89 and Other chronic allergic conjunctivitis H10.45 [facility] [address] [place] [address] [address] 05/25/2024 Cristóbal Miller Allergic rhinitis du e to pollen J30.1 ; Allergic rhinitis due to animal (cat) (dog) hair and dander J30.81 ; Other allergic rhinitis J30.89 and Other chronic allergic conjunctivitis H10.45 [facility] [address] [place] [phone] 07/20/2024 Cristóbal Miller Allergic rhinitis du e to pollen J30.1 ; Allergic rhinitis due to animal (cat) (dog) hair and dander J30.81 ; Other allergic rhinitis J30.89 and Other chronic allergic conjunctivitis H10.45 [facility] [address] [place] [address] [address] 07/27/2024 Cristóbal Miller Allergic rhinitis du e to pollen J30.1 ; Allergic rhinitis due to animal (cat) (dog) hair and dander J30.81 ; Other allergic rhinitis J30.89 and Other chronic allergic conjunctivitis H10.45 [facility] [address] [place] [address] [address] 08/04/2024 Cristóbal Paul Allergic rhinitis du e to pollen J30.1 ; Allergic rhinitis due to animal (cat) (dog) hair and dander J30.81 ; Other allergic rhinitis J30.89 and Other chronic allergic conjunctivitis H10.45 [facility] [address] [place] [address] [address] 08/11/2024 Cristóbalamita Miller Allergic rhinitis du e to pollen J30.1 ; Allergic rhinitis due to animal (cat) (dog) hair and dander J30.81 ; Other allergic rhinitis J30.89 and Other chronic allergic conjunctivitis H10.45 [facility] [address] [place] [phone] 08/17/2024 Cristóbalamita Miller Allergic rhinitis du e to pollen J30.1 ; Allergic rhinitis due to animal (cat) (dog) hair and dander J30.81 ; Other allergic rhinitis J30.89 and Other chronic allergic conjunctivitis H10.45 [facility] [address] [place] [phone] 09/14/2024 Cristóbal Miller Allergic rhinitis du e to pollen J30.1 ; Allergic rhinitis due to animal (cat) (dog) hair and dander J30.81 ; Other allergic rhinitis J30.89 and Other chronic allergic conjunctivitis H10.45 [facility] [address] [place] [phone] 09/20/2024 Cristóbal Miller Allergic rhinitis du e to pollen J30.1 ; Allergic rhinitis due to animal (cat) (dog) hair and dander J30.81 ; Other allergic rhinitis J30.89 and Other chronic allergic conjunctivitis H10.45 [facility] [address] [place] [address] [place] [address] 09/28/2024 Cristóbal Miller Allergic rhinitis du e to pollen J30.1 ; Allergic rhinitis due to animal (cat) (dog) hair and dander J30.81 ; Other allergic rhinitis J30.89 and Other chronic allergic conjunctivitis H10.45 [facility] [address] [place] [address] [place] [phone] 11/03/2024 Deric Rockwell Allergic rhinitis du e to pollen J30.1 [...] encounter T39.395D and Essential (primary) hypertension I10 [facility] [address] [facility] [place] [address] 12/07/2023 Deepa Young Moderate persistent asthma, uncomplicated J45.40 [facility] [address] [facility] [place] [address] 07/21/2024 Deepa Young [facility] [address] [facility] [place] [address] 08/09/2024 Deepa Young [facility] [address] [facility] [place] [address] 08/10/2024 Deepa Young Moderate persistent asthma, uncomplicated J45.40 [facility] [address] [facility] [address] [place] [address] 08/11/2024 Deepa Young Moderate persistent asthma, uncomplicated J45.40 [facility] [address] [facility] [place] [address] 09/12/2024 Deepa Young Moderate persistent asthma, uncomplicated J45.40 Assessments Encounter Date Diagnosis (ICD Code) Assessment Notes Treatment Notes Treatment Clinical Notes Section Notes 11/25/2023 Allergic rhinitis due to pollen (ICD-10 [...] - J30.1) 07/27/2024 Allergic rhinitis due to pollen (ICD-10 - J30.1) 02/24/2024 Allergic rhinitis due to animal (cat) (dog) hair and dander (ICD-10 - J30.81) Follow allergen avoidance, meds and continue SCIT as an adjunctive treatment to current regimen 08/04/2024 Allergic rhinitis due to pollen (ICD-10 - J30.1) 08/10/2024 Moderate persistent asthma, uncomplicated (ICD-10 - J45.40) 08/11/2024 Allergic rhinitis due to pollen (ICD-10 - J30.1) 08/11/2024 Moderate persistent asthma, uncomplicated (ICD-10 - J45.40) 08/17/2024 Allergic rhinitis due to pollen (ICD-10 - J30.1) 09/14/2024 Allergic rhinitis due to pollen (ICD-10 - J30.1) 09/20/2024 Allergic rhinitis due to pollen (ICD-10 - J30.1) 09/28/2024 Allergic rhinitis due to pollen (ICD-10 - J30.1) 11/03/2024 Allergic rhinitis due to pollen (ICD-10 - [...] 3 months for interval evaluation and management 09/12/2024 Moderate persistent asthma, uncomplicated (ICD-10 - J45.40) 11/03/2024 Allergic rhinitis due to animal (cat) (dog) hair and dander (ICD-10 - J30.81) Follow allergen avoidance, meds and continue SCIT as an adjunctive treatment to current regimen 11/03/2024 Other allergic rhinitis (ICD-10 - J30.89) Follow allergen avoidance, meds and continue SCIT as an adjunctive treatment to current regimen 09/28/2024 Allergic rhinitis due to animal (cat) (dog) hair and dander (ICD-10 - J30.81) 09/20/2024 Allergic rhinitis due to animal (cat) (dog) hair and dander (ICD-10 - J30.81) 09/14/2024 Allergic rhinitis due to animal (cat) (dog) hair and dander (ICD-10 - J30.81) 08/17/2024 Allergic rhinitis due to animal (cat) (dog) hair and dander (ICD-10 - J30.81) 08/11/2024 Allergic rhinitis due to animal (cat) (dog) hair and dander (ICD-10 - J30.81) 08/04/2024 Allergic rhinitis due to animal (cat) (dog) hair and dander (ICD-10 - J30.81) 07/27/2024 Allergic rhinitis due to animal (cat) [...] hair and dander (ICD-10 - J30.81) 11/25/2023 Other allergic rhinitis (ICD-10 - J30.89) [...] 07/27/2024 Other allergic rhinitis (ICD-10 - J30.89) 08/04/2024 Other allergic rhinitis (ICD-10 - J30.89) 08/11/2024 Other allergic rhinitis (ICD-10 - J30.89) 08/17/2024 Other allergic rhinitis (ICD-10 - J30.89) 09/14/2024 Other allergic rhinitis (ICD-10 - J30.89) 09/20/2024 Other allergic rhinitis (ICD-10 - J30.89) 09/28/2024 Other allergic rhinitis (ICD-10 - J30.89) 11/03/2024 Other chronic allergic conjunctivitis (ICD-10 - H10.45) Given ocular signs and symptoms I encouraged allergy avoidance measures and meds as above. If symptoms persist, consider adding additional medications including intraocular antihistamine/mas t cell stabilizer, PRN and continue SCIT as an adjunctive measure 09/28/2024 Other chronic allergic conjunctivitis (ICD-10 - H10.45) 09/20/2024 Other chronic allergic conjunctivitis (ICD-10 - H10.45) 08/17/2024 Other chronic allergic conjunctivitis (ICD-10 - H10.45) 11/03/2024 Moderate persistent asthma, uncomplicated (ICD-10 - J45.40) Doing well on Breo and Singulair. Consider screen for biologics + PI work-up if she continues to have lung infections. No recurrent infections as of 07/2019. -Last spirometry showed normal FEV1, FVC, and FEV%. -Continue Breo and discontinue albuterol and start Airsupra 2 puffs as needed. Denies any recent use of the albuterol. Refill sent for Breo. -Did receive RSV shot in 03/2023. -Recommend annual influenza vaccine. -Consider pulmonary evaluation given 35-pack year smoking history. Denies prior evaluation or low-res CT scan. Patient will discuss with PCP. -Follow-up in 3 months for E&M 09/14/2024 Other chronic allergic conjunctivitis (ICD-10 - H10.45) 03/22/2024 Other chronic allergic conjunctivitis (ICD-10 - H10.45) 08/11/2024 Other chronic allergic conjunctivitis (ICD-10 - H10.45) 08/04/2024 Other chronic allergic conjunctivitis (ICD-10 - H10.45) 07/27/2024 Other chronic allergic conjunctivitis (ICD-10 - [...] PCP. -Follow-up in 3 months for E&M 01/20/2024 Other chronic allergic conjunctivitis (ICD-10 - H10.45) 11/25/2023 Other chronic allergic conjunctivitis (ICD-10 - H10.45) 02/24/2024 Cough (ICD-10 - R05) She has had no itching issue since switching from Symbicort to Breo. She has had no interval GREGORY use. She has had no recurrent illness since 07/2019. Rinse out mouth after use. AAP was reviewed and no changes made. Consider pulmonary input and full PFT. Spirometry last visit with normal lung function. Recommend Pneumococcal vaccine 11/03/2024 Cough (ICD-10 - R05) She has had no itching issue since switching from Symbicort to Breo. She has had no interval GREGORY use. She has had no recurrent illness since 07/2019. Rinse out mouth after use. AAP was reviewed and no changes made. Consider pulmonary input and full PFT. Spirometry last visit with normal lung function. Recommend Pneumococcal vaccine 11/03/2024 Other pruritus (ICD-10 - L29.8) No interval episodes since switching from Symbicort to Breo, although very unlikely to have been the cause. She has also still been avoiding Catia[place] which she was previously using daily, and has had no issues since. Recommended continued avoidance at this time 02/24/2024 Other pruritus (ICD-10 - L29.8) No interval episodes since switching from Symbicort to Breo, although very unlikely to have been the cause. She has also still been avoiding Catia-[place] which she was previously using daily, and has had no issues since. Recommended continued avoidance at this time 02/24/2024 Tinnitus, unspecified ear (ICD-10 - H93.19) Glendy reports constant tinnitus and ear muffling. Due to the timing of her symptoms, ENT recommended holding SCIT. Symptoms continue and she has had some improvement with vestibular physical therapy. No difference with steroid. Continue per ENT/Neuro 11/03/2024 Tinnitus, unspecified ear (ICD-10 - H93.19) Glendy reports constant tinnitus and ear muffling. Due to the timing of her symptoms, ENT recommended holding SCIT. Symptoms continue and she has had some improvement with vestibular physical therapy. No difference with steroid. Continue per ENT/Neuro 11/03/2024 Adverse effect of angiotensin-conver ting-enzyme inhibitors, subsequent [...] interval episodes. Tolerates other NSAIDs without issues 11/03/2024 Adverse effect of other nonsteroidal anti-inflammatory drugs [NSAID], subsequent encounter (ICD-10 - T39.395D) Redness and flushing with Diclofenac. Continues avoidance without any interval episodes. Tolerates other NSAIDs without issues 11/03/2024 Essential (primary) hypertension (ICD-10 - I10) BP elevated today without symptoms of urgency or emergency. Continue serial checks and follow-up with PCP 02/24/2024 Essential (primary) hypertension (ICD-10 - I10) BP elevated today without symptoms of urgency or emergency. Continue serial checks and follow-up with PCP 02/24/2024 Other 11/03/2024 Other Plan Of Treatment Pending Test Test Name Order Date Spirometry 11/03/2024 Next Appt Details Provider Name:Cristóbal Miller , 11/29/2024 04:00:00 PM, [address], [place], [address], Provider Name:Francine yu, 04/25/2025 03:00:00 PM, [address], [address], [place], [address], Insurance Providers Payer Name Payer Address Payer Phone Subscriber Number Group Number Insured Name Patient Relationship to Insured Coverage Start Date Coverage End Date [facility] [address] [address] [place] [phone] [id number] Glendy Osborne Self - patient is the insured 2 Medical (General) History Medical History History ICD Code Hyperlipidemia, unspecified E78.5 Essential (primary) hypertension I10 Surgical History Surgery Date(Month/Year) tonsils 10/13/1972 leg mole removal 09/20/1985 appendix 07/05/1990 tubes tied 09/17/2002 tennis elbow 09/24/2008 kidney surgery 10/18/2008 hysterectomy 11/17/2013
== END 2024-11-09 15:49 | disposition home or self-care (01) ==
LOC: ANHIMG 15:51
PROVIDERS: PCP Family Medicine; Visit Provider Nurse Practitioner
DX: Z12.31 Encounter for screening mammogram for malignant neoplasm of breast (principal)
CPT/HCPCS: 77063; 77067

== ENCOUNTER 2024-12-13 07:45 | Outpatient (CLI) | payer OTHER, SELFPAY ==
--- OUTSIDE RECORDS SUMMARY | 2024-12-13 07:48 | XMS_ITS | Clinical Summary ---
Author Organization [facility] Haddox Records Address [address] [place] [address] Care Team Providers Care Die Cast Operator Name Role Phone Josef Ledbetter MD Primary Care Provider [phone] Source Comments [facility],non-owned Affiliates and Associated Physician Practices is amultiple site organization consisting of ambulatory clinics and hospital sitesin [place], [place], [place] and [place]. This disclosure is being madepursuant to the Care Everywhere program and may not contain all information available regarding this patient. 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 file Not on file Not on file Last Filed Vital Signs Vital Sign Reading Time Taken Comments Blood Pressure - - Pulse - - Temperature - - Respiratory Rate - - Oxygen Saturation - - Inhaled Oxygen Concentration - - Weight 80.7 kg (178 lb) 05/23/2015 10:14 AM ASSISTANT MEN'S LA[employer] COACH Height 160 cm (5' 3) 05/23/2015 10:14 AM ASSISTANT 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
--- OUTSIDE RECORDS SUMMARY | 2024-12-13 07:48 | XMS_ITS | Clinical Summary ---
Author Organization [facility] Address [address] [place] [address] Care Team Providers Care Brim Raiser Name Role Phone Josef Duff MD Primary Care Provider [phone] Allergies Active Allergy Reactions Criticality Noted Date [...] Care Team Description 11/09/2024 7:11 AM CDT - 11/09/2024 11:59 PM CDT Hospital Encounter [facility] [address] [place] [address] Personal history of nicotine dependence Discharge Disposition: Discharge to home or self care 11/07/2024 Telephone [facility] [address] [place] [address] Madeline Guerin RN 11/03/2024 6:55 AM CDT - 11/03/2024 11:59 PM CDT Hospital Encounter [facility] [address] [place] [address] Pain in left hip Discharge Disposition: Discharge [...] on file 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 Gender Identity Not on file Sexual Orientation [...] Cancer Screening-Colonoscopy 08/18/2022 08/18/2012 Influenza Vaccine (#1) 2025 3, 05/11/2020, 02/10/2020, Additional history exists Lung Cancer Screening 11/10/2025 11/09/2024, 024 Colon Cancer Screening-CT Colonography Discontinued 08/18/2012 Colon Cancer Screening-DNA Stool Discontinued 08/18/2012 Colon Cancer Screening-FIT Discontinued 08/18/2012 Colon Cancer Screening-Sigmoidoscopy Discontinued 08/18/2012 Pneumococcal vaccine <65 Aged Out No longer eligible based on patient's age to complete this topic Procedures Procedure Name Priority Date/Time Associated Diagnosis Comments CT LUNG CANCER SCREENING Schedule Routine, Read Routine (OP Routine) 11/09/2024 7:22 AM CDT Personal history of nicotine dependence MRI HIP LEFT WO CONTRAST Schedule Routine, Read Routine (OP Routine) 11/03/2024 8:15 AM CDT Pain in left hip COLONOSCOPY REPORT 08/18/2012 from Last 3 Months or Most Recently Relevant to Health Maintenance Results * CT Lung Cancer Screening (11/09/2024 7:22 AM CDT) Anatomical Region Laterality Modality Chest N/A Computed Tomogra phy 11/17/2024 7:13 PM CDT Narrative 11/17/2024 7:16 PM CDT EXAM DESCRIPTION: CT LUNG CANCER SCREENING REASON FOR STUDY: Screening CT of the chest in a former smoker with a 31 pack year smoking history. Additional history: None. [...] DOSE: CT dose index volume (CTDIvol) = 1.64 mGy COMPARISON: 04/14/2024 FINDINGS: SMOKING RELATED LUNG DISEASE: Mild emphysematous changes noted. LUNG NODULES: There is a 7 mm nodule medially in the left lower lobe (axial image 179 of 273) which is stable. CORONARY ARTERY CALCIFICATION: Present OTHER: The heart remains normal in size. Calcified mediastinal lymph nodes are seen. No pneumothorax or pleural effusion is present. IMPRESSION: 1. Stable left lower lobe nodule. Lung-RADS category 2: Benign appearance or behavior. Recommendation: Low dose Screening CT of chest in 12 months. THIS IS AN ELECTRONICALLY VERIFIED FINAL REPORT 11/17/2024 7:16 PM - Electronically signed by Fili Estrada M.D. BS: BS Report ID: [id number] Reading Location: [id number] Procedure Note Fili Estrada MD - 11/17/2024 EXAM DESCRIPTION: CT LUNG CANCER SCREENING REASON FOR STUDY: Screening CT of the chest in a former smoker with a31 pack year smoking history. Additional history: None. [...] DOSE: CT dose index volume (CTDIvol) = 1.64 mGy COMPARISON: 04/14/2024 FINDINGS: SMOKING RELATED LUNG DISEASE: Mild emphysematous changes noted. LUNG NODULES: There is a 7 mm nodule medially in the left lower lobe(axial image 179 of 273) which is stable. CORONARY ARTERY CALCIFICATION: Present OTHER: The heart remains normal in size. Calcified mediastinal lymphnodes are seen. No pneumothorax or pleural effusion is present. IMPRESSION: 1. Stable left lower lobe nodule. Lung-RADS category 2: Benign appearance or behavior. Recommendation: Low dose Screening CT of chest in 12 months. THIS IS AN ELECTRONICALLY VERIFIED FINAL REPORT 11/17/2024 7:16 PM - Electronically signed by Fili Estrada M.D. BS: STEVIE Report ID: [id number] Reading Location: [id number] us Agnieszka Garnica ORCHESTRATOR IMG CT PROCEDURES Final Resu lt * MRI Hip Left WO Contrast (11/03/2024 [...] of 4.6 x 4.5 x 5 cm (8/34 in 04/12). This is indeterminate. This is [...] Isma Wells M.D. JA: CARLO Report ID: [id number] Reading Location: [id number] Procedure Note Isma Wells MD - 11/03/2024 [...] of 4.6 x 4.5 x 5 cm (8/34 in 04/12). This is indeterminate. This is [...] Isma Wells M.D. JA: CARLO Report ID: [id number] Reading Location: [id number] Agnieszka Garnica NP IMG MRI PROCEDURES Final Res ult * COLONOSCOPY REPORT (08/18/2012) Anatomical Region Laterality Modality Other Narrative 08/18/2012 Ordered by an unspecified provider. Historical Provider GI PROCEDURE ORDERABLES F inal Result from Last 3 Months or Most Recently Relevant to Health Maintenance Insurance [facility] CHOICE PLUS [facility] H[facility]/PPO Address: [place] [address] [facility] CHOICE PLUS [facility] HMO/PPO [place] [address] Care Teams Brim Raiser Relationship Specialty Start Date End Date Josef Duff MD [address] [place] [address] PCP - General Family Medicine 10/25/24
--- OUTSIDE RECORDS SUMMARY | 2024-12-13 07:48 | XMS_ITS | Patient Health Record ---
Author Organization [facility] [employer] [place] ([address]) Address [address] [place] [address] Care Team Providers Care Construction Pit Worker Name Role Phone Josef Duff Primary Care Provider UnavailDeepa Jenkins Unavailable [phone] Omid Beatty Unavailable Unavailable Cristóbal Miller Unavailable [phone] Nadia Conte Unavailable [phone] Deric Rockwell Unavailable [phone] Allergies Allergen (clinical drug ingredient) Drug/Non Drug [...] Date Status EPINEPHrine 0.3 MG DIRECTED INTRAMUSCULARLY ONCE; Duration: 30 DAYS *Please review and pick correct strength-formula tion from [employer] options. If intended option is not shown, discontinue and re-order from Quick Search* Not-Taking Auvi-Q 0.3 MG/0.3ML as directed intramuscularly once; Duration: 30 day(s) Not-Taking BREO ELLIPTA 100 mcg-25 mcg/inh 1 puff(s) inhaled once a day; Duration: 30 days Not-Taking MONTELUKAST SODIUM 10 mg 1 tab(s) orally once a day Active SIT (TRADITIONAL) variable per schedule SC per schedule; Duration: to be determined Active FAMOTIDINE 40 mg 1 tab(s) orally once a day (at bedtime) Active NASAL WASHES N/A as directed intranasally as needed; Duration: 30 Active EPINEPHrine 0.3 MG/0.3ML as directed Injection as needed for swelling or allergic reactdion; Duration: 30 days 11/03/2024 Active NASACORT ALLERGY 24HR 55 mcg/inh 2 spray(s) intranasally once a day; Duration: 30 day(s) Active Airsupra 90-80 MCG/ACT 2 puffs as needed Inhalation Six times a day; Duration: 30 days 11/03/2024 Active ZYRTEC 10 mg 1 tab(s) orally once a day Active EPINEPHRINE 0.3 mg as directed intramuscularly once; Duration: 30 days Not-Taking VALSARTAN 80 mg 1 tab(s) orally once a day; Duration: 30 day(s) Not-Taking ATORVASTATIN 20 mg 1 tab(s) orally once a day; Duration: 30 day(s) Not-Taking ZyrTEC Allergy 10 MG 1 tab(s) orally once a day Active Claritin 10 MG 1 tablet Orally Once a day Active Breo Ellipta 100-25 MCG/ACT 1 puff Inhalation Once a day; Duration: 90 days Active EPINEPHrine 0.3 MG/0.3ML as directed Injection as needed; Duration: 30 days 12/07/2023 Active Montelukast Sodium 10 MG 1 tab(s) orally once a day; Duration: 30 days Active Albuterol Sulfate HFA 108 (90 Base) MCG/ACT 1 puff as needed Inhalation every 4 hrs; Duration: 30 days 12/07/2023 Active Valsartan 80 MG 1 tab(s) orally once a day; Duration: 30 day(s) Active Atorvastatin Calcium 20 MG 1 tab(s) orally once a day; Duration: 30 day(s) Active SLOW MAGNESIUM CHLORIDE WITH CALCIUM 118 MG-71 MG 2 TAB(S) ORALLY ONCE A DAY *Please review for potential replacement for e-prescription and drug interaction check* Active Famotidine 40 MG 1 tab(s) orally once a day (at bedtime) Active Nasacort Allergy 24HR 55 MCG/ACT 2 spray(s) intranasally once a day; Duration: 30 day(s) Active Immunizations Vaccine Route Administration [...] Status Risk Notes Problem Chronic allergic conjunctivitis (17651575) Other chronic allergic conjunctivitis (H10.45) Active confirmed Problem Tinnitus (83472885) Tinnitus, unspecified ear (H93.19) Active confirmed Problem Allergic rhinitis (77746771) Other allergic rhinitis (J30.89) Active confirmed Problem Uncomplicated moderate persistent asthma (492007971) Moderate persistent asthma, uncomplicated (J45.40) Active confirmed Problem Cough (73073777) Cough (R05) Active confirmed Problem Non-steroidal anti-inflammatory drug adverse reaction (651290208) Adverse effect of other nonsteroidal anti-inflammatory drugs [NSAID], subsequent encounter (T39.395D) Active confirmed Problem Angiotensin-conve rting-enzyme inhibitor adverse reaction (381793249) Adverse effect of angiotensin-conve rting-enzyme inhibitors, subsequent encounter (T46.4X5D) Active confirmed Problem Allergic rhinitis caused by pollen (disorder) (85000303) Allergic rhinitis due to pollen (J30.1) Active confirmed Problem Allergic rhinitis caused by animal hair and dander (986994945798527) Allergic rhinitis due to animal (cat) (dog) hair and dander (J30.81) Active confirmed Problem Essential hypertension (01532330) Essential (primary) hypertension (I10) Active confirmed Vital Signs Oximetry 99 % 11/03/2024 Blood pressure diastolic 88 mm Hg 11/03/2024 Height 63.0 in 11/03/2024 Blood pressure systolic 137 mm Hg 11/03/2024 Weight 182.4 lbs 11/03/2024 BMI 32.31 kg/m2 11/03/2024 Encounters Encounter Location Date Provider Diagnosis [facility] [address] [place] [phone] 11/30/2024 Cristóbal Miller Allergic rhinitis du e to pollen J30.1 ; Allergic rhinitis due to animal (cat) (dog) hair and dander J30.81 ; Other allergic rhinitis J30.89 and Other chronic allergic conjunctivitis H10.45 [facility] [address] [place] [phone] 09/28/2024 Cristóbal Miller Allergic rhinitis du e to pollen J30.1 ; Allergic rhinitis due to animal (cat) (dog) hair and dander J30.81 ; Other allergic rhinitis J30.89 and Other chronic allergic conjunctivitis H10.45 [facility] [address] [place] [address] 09/20/2024 Cristóbal Miller Allergic rhinitis du e to pollen J30.1 ; Allergic rhinitis due to animal (cat) (dog) hair and dander J30.81 ; Other allergic rhinitis J30.89 and Other chronic allergic conjunctivitis H10.[address] [address] 09/14/2024 Cristóbal Miller Allergic rhinitis du e to pollen J30.1 ; Allergic rhinitis due to animal (cat) (dog) hair and dander J30.81 ; Other allergic rhinitis J30.89 and Other chronic allergic conjunctivitis H10.45 [facility] [address] [place], [place] [address] [address] [address] 08/17/2024 Cristóbal Paul Allergic rhinitis du e to pollen J30.1 ; Allergic rhinitis due to animal (cat) (dog) hair and dander J30.81 ; Other allergic rhinitis J30.89 and Other chronic allergic conjunctivitis H10.45 [facility] [address] [place] [address] [employer] [address] [address] 08/11/2024 Cristóbalamita Miller Allergic rhinitis du e to pollen J30.1 ; Allergic rhinitis due to animal (cat) (dog) hair and dander J30.81 ; Other allergic rhinitis J30.89 and Other chronic allergic conjunctivitis H10.45 [facility] [address] [place] [address] [employer] [address] [address] 08/04/2024 Cristóbalamita Miller Allergic rhinitis du e to pollen J30.1 ; Allergic rhinitis due to animal (cat) (dog) hair and dander J30.81 ; Other allergic rhinitis J30.89 and Other chronic allergic conjunctivitis H10.45 [facility] [address] [place] [address] [employer] [address] [address] 07/27/2024 Cristóbalamita Miller Allergic rhinitis du e to pollen J30.1 ; Allergic rhinitis due to animal (cat) (dog) hair and dander J30.81 ; Other allergic rhinitis J30.89 and Other chronic allergic conjunctivitis H10.45 [facility] [address] [place] [address] [employer] [address] [address] 07/20/2024 Cristóbal Miller Allergic rhinitis du e to pollen J30.1 ; Allergic rhinitis due to animal (cat) (dog) hair and dander J30.81 ; Other allergic rhinitis J30.89 and Other chronic allergic conjunctivitis H10.45 [facility] [address] [place] [address] [employer] [address] [address] 05/25/2024 Cristóbal Miller Allergic rhinitis du e to pollen J30.1 ; Allergic rhinitis due to animal (cat) (dog) hair and dander J30.81 ; Other allergic rhinitis J30.89 and Other chronic allergic conjunctivitis H10.45 [facility] [address] [address] 04/27/2024 Cristóbal Miller Allergic rhinitis du e to pollen J30.1 ; Allergic rhinitis due to animal (cat) (dog) hair and dander J30.81 ; Other allergic rhinitis J30.89 and Other chronic allergic conjunctivitis H10.45 [facility] [address] [place] [phone] 03/22/2024 Cristóbal Miller Allergic rhinitis du e to pollen J30.1 ; Allergic rhinitis due to animal (cat) (dog) hair and dander J30.81 ; Other allergic rhinitis J30.89 and Other chronic allergic conjunctivitis H10.45 [facility] [address] [place] [phone] 01/20/2024 Cristóbal Miller Allergic rhinitis du e to pollen J30.1 ; Allergic rhinitis due to animal (cat) (dog) hair and dander J30.81 ; Other allergic rhinitis J30.89 and Other chronic allergic conjunctivitis H10.45 [facility] [address] [place] [address] 12/23/2023 Cristóbal Miller Allergic rhinitis du e to pollen J30.1 ; Allergic rhinitis due to animal (cat) (dog) hair and dander J30.81 ; Other allergic rhinitis J30.89 and Other chronic allergic conjunctivitis H10.45 [facility] [address] [place] [phone] 11/03/2024 Deric Rockwell Allergic rhinitis du e [...] encounter T39.395D and Essential (primary) hypertension I10 [facility] [address] [place] [phone] 02/24/2024 Nadia Conte Allergic rhinitis du e [...] encounter T39.395D and Essential (primary) hypertension I10 [address] [address] 09/12/2024 Deepa Tamayo Moderate persistent asthma, uncomplicated J45.40 [facility] [address] [place] [address] 08/11/2024 Deepa Tamayo Moderate persistent asthma, uncomplicated J45.[address] [address] 08/10/2024 Deepa Tamayo Moderate persistent asthma, uncomplicated J45.[address] [address] 08/09/2024 Deepa Tamayo [address] [address] 07/21/2024 Deepa Tamayo Assessments Encounter Date Diagnosis (ICD Code) Assessment Notes Treatment Notes Treatment Clinical Notes Section Notes 12/23/2023 Allergic rhinitis due to pollen (ICD-10 [...] 3 months for interval evaluation and management 03/22/2024 Allergic rhinitis due to pollen (ICD-10 [...] as an adjunctive treatment to current regimen 11/30/2024 Allergic rhinitis due to pollen (ICD-10 - J30.1) 11/30/2024 Allergic rhinitis due to animal (cat) (dog) hair and dander (ICD-10 - J30.81) 11/03/2024 Other allergic rhinitis (ICD-10 - J30.89) [...] hair and dander (ICD-10 - J30.81) 12/23/2023 Other allergic rhinitis (ICD-10 - J30.89) [...] and continue SCIT as an adjunctive measure 11/30/2024 Other allergic rhinitis (ICD-10 - J30.89) 11/30/2024 Other chronic allergic conjunctivitis (ICD-10 - H10.45) [...] Other chronic allergic conjunctivitis (ICD-10 - H10.45) 09/28/2024 Other chronic allergic conjunctivitis (ICD-10 - [...] cause. She has also still been avoiding Catia-[place] which she was previously using daily, and has had no issues since. Recommended continued avoidance at this time 02/24/2024 Other pruritus (ICD-10 - L29.8) No interval episodes since switching from Symbicort to Breo, although very unlikely to have been the cause. She has also still been avoiding Catia-[place] which she was previously using daily, and [...] Spirometry 11/03/2024 Next Appt Details Provider Name:Cristóbal AngelinaLucretia Miller , 12/28/2024 04:00:00 PM, [address], [address], [place], [address], Provider Name:Francine yu, 04/25/2025 03:00:00 PM, [address], [address], [place], [address], Insurance Providers Payer Name Payer Address Payer Phone Subscriber Number Group Number Insured Name Patient Relationship to Insured Coverage Start Date Coverage End Date [facility] [address] [address] [place] [address] [phone] [id number] Glendy Osborne Self - patient is the insured 2 Medical (General) History Medical History History ICD Code Hyperlipidemia, unspecified E78.5 Essential (primary) hypertension I10 Surgical History Surgery Date(Month/Year) tonsils 10/13/1972 leg mole removal 09/20/1985 appendix 07/05/1990 tubes tied 09/17/2002 tennis elbow 09/24/2008 kidney surgery 10/18/2008 hysterectomy 11/17/2013
--- OUTSIDE RECORDS SUMMARY | 2024-12-13 07:48 | XMS_ITS | Clinical Summary ---
Author Organization [facility] Address [address] [place] [address] Phone Care Team Providers Care Arbitrator Name Role Phone Josef Ledbetter MD Primary Care Provider [phone] Social History Tobacco Use Types Packs/Day Years [...] (1 - 1-dose 75+ series) [address] [place] [id number] Care Teams Arbitrator Relationship Specialty Start Date End Date Josef Ledbetter MD PCP - General Internal Medicine 07/27/15
--- OUTSIDE RECORDS SUMMARY | 2024-12-13 07:48 | XMS_ITS | Referral Summary ---
Author Organization [facility] Address [address] [place] [address] Care Team Providers Care Technical Support Director Name Role Phone Josef Duff MD Primary Care Provider [phone] Encounters Date Type Department Care Team Description 11/09/2024 7:11 AM CDT - 11/09/2024 11:59 PM CDT Hospital Encounter [facility] [address] [place] [address] Personal history of nicotine dependence Discharge Disposition: Discharge to home or self care 11/07/2024 Telephone [facility] [address] [place] [address] Madeline Guerin RN 11/03/2024 6:55 AM CDT - 11/03/2024 11:59 PM CDT Hospital Encounter [facility] [address] [place] [address] Pain in left hip Discharge Disposition: Discharge [...] on file 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 BS: BS Report ID: [id number] Reading Location: [id number] Procedure Note Fili Estrada MD - 11/17/2024 [...] Fili Estrada M.D. BS: BS Report ID: [id number] Reading Location: [id number] us Agnieszka Garnica AUTHOR AGENT IMG CT PROCEDURES Final Resu lt * [...] Isma Wells M.D. JA: CARLO Report ID: [id number] Reading Location: [id number] Procedure Note Isma Wells MD - 11/03/2024 [...] of 4.6 x 4.5 x 5 cm (/34 in 04/12). This is indeterminate. This is [...] Isma Wells M.D. JA: CARLO Report ID: [id number] Reading Location: [place] [address] us Agnieszka Garnica NP IMG MRI PROCEDURES Final Res ult * COLONOSCOPY REPORT (08/18/2012) Anatomical Region Laterality Modality Other Narrative 08/18/2012 Ordered by an unspecified provider. us Historical Provider MD GARCIA PROCEDURE ORDERABLES F inal Result from Last 3 Months or Most Recently Relevant to Health Maintenance Insurance [facility] Address: [place] [address] [facility]O Address: [place] [address] Care Teams Technical Support Director Relationship Specialty Start Date End Date Josef Duff MD [address] [place] [address] PCP - General Family Medicine 10/25/24
--- OUTSIDE RECORDS SUMMARY | 2024-12-13 07:49 | XMS_ITS ---
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 Name Role Phone Sherin Josef Primary Care Provider UnavailDeepa Jenkins Unavailable [phone] Omid Beatty Unavailable Unavailable Cristóbal Miller Unavailable [phone] REASON FOR VISIT SCIT (Aeroallergen) Encounters Encounter Location Date Provider Diagnosis [facility] [address] [place] [address] 11/29/2024 Cristóbal Miller Plan Of Treatment Next Appt Details Provider Name:Cristóbal Miller , 12/28/2024 04:00:00 PM, [address], [place], [address], Provider Name:Francine yu, 04/25/2025 03:00:00 PM, [address], [place], [address], Progress Notes * Glendy OSBORNE CDOB:[birth year] (64 yo F)Acc No.[id number]:11/29/2024 SCIT-Aeroallergen Patient: Justyna Glendy RICHARD Provider: Sariah Miller MD :1960 A ge:64 Y S ex:Female Date:11/29/2024 [facility] [facility] Pcp:Josef Duff Subjective: * Chief Complaints: * 1 . SCIT (Aeroallergen). * Medical History: Objective: * Vitals: Assessment: Plan: * Treatment: * Billing Information: * Visit Code: * Procedure Codes: * Electronic signature of Pataimee Miller MD, FAAAAI on 12/13/2024 at 07:48 AM CDT Sign off status: Pending * Provider: Sariah Miller MD Date: 11/29/2024 Generated for Waynei travon/Shai/eTransmitting on: 12/13/2024 07:48 AM CDT
== END 2024-12-13 07:46 | disposition home or self-care (01) ==
LOC: ANHBWCAUD 07:46
PROVIDERS: PCP Family Medicine; Visit Provider Otolaryngology
DX: H81.09 Meniere's disease, unspecified ear (principal); H93.8X9 Other specified disorders of ear, unspecified ear; H90.3 Sensorineural hearing loss, bilateral
CPT/HCPCS: 92557; 92567